=== PATIENT | male | born 1960 | race Caucasian/White ===

== ENCOUNTER 2022-04-13 10:50 | Inpatient (IN) | payer OTHER, SELFPAY ==
--- NOTE | ~2022-04-13 | XR_ITS ---
EXAMINATION: XR CHEST CLINICAL INFORMATION: Cough and wheezing COMPARISON: None TECHNIQUE: PA view of the chest was obtained. FINDINGS: There is a region of parenchymal disease as well as what appears be loculated effusion right lung base. No pneumothorax identified. Left hemithorax appears unremarkable. Heart normal size. No evidence of pulmonary edema. XR/XR chest 1V IMPRESSION: Right base disease with partially loculated effusion.
--- NOTE | ~2022-04-13 | XR_ITS ---
EXAMINATION: XR CHEST CLINICAL INFORMATION: Post right thoracentesis COMPARISON: Previous chest x-ray April 2022 TECHNIQUE: Frontal view of the chest was obtained. FINDINGS: The cardiac silhouette is enlarged but stable. There is interval decrease in the now small right pleural effusion post right thoracentesis. No pneumothorax. No left pleural effusion. Atelectasis at the right lung base. Lungs are otherwise clear. No acute bone abnormality. XR/XR chest 1V IMPRESSION: No pneumothorax post right thoracentesis. Small remaining right pleural effusion.
--- NOTE | ~2022-04-13 | CT_ITS ---
EXAMINATION: CT ANGIOGRAM OF THE CHEST WITH AND WITHOUT CONTRAST (CT PULMONARY ANGIOGRAM FOR PE) CLINICAL INFORMATION: Reason for Exam cough/sob/high BNP ? Loculated effusion; hx of cancer COMPARISON: None TECHNIQUE: Prior to contrast administration, noncontrast localization images were obtained. Subsequently, multidetector volumetric imaging was performed from the thoracic inlet to below the diaphragms following the administration of 85 mL Omnipaque 350 intravenous contrast. No contrast reaction reported Sagittal, coronal, and MIP oblique sagittal reformatted images were obtained on the CT workstation, uploaded to PACS, and reviewed. This CT examination was performed using dose optimization techniques as appropriate, variously including the following: *Automated exposure control *Adjustment of mA and/or kV according to patient size (this includes techniques or standardized protocols for targeted exams where dose is matched to indication/reason for exam; i.e. extremities or head) *Use of iterative reconstruction technique Total exam dose-length product 1038 mGy-cm FINDINGS: QUALITY OF STUDY/CONTRAST BOLUS: Satisfactory. PULMONARY ARTERIES: No central or segmental pulmonary emboli. THORACIC AORTA: The thoracic aorta is dilated measuring approximately 4.3 x 4.3 cm consistent with aortic ectasia/early aneurysmal dilatation. LUNG: No focal consolidation, nodules or masses. PLEURA: There is large pleural effusion on the right MEDIASTINUM: Normal heart size. No pericardial effusion. No hilar or mediastinal lymphadenopathy. No evidence of septal bowing or right heart strain. CHEST WALL/AXILLA: No axillary or internal mammary lymphadenopathy. OSSEOUS STRUCTURES: There is DISH in thoracic spine UPPER ABDOMEN: Unremarkable. No reflux of contrast into the hepatic veins to suggest elevated right heart pressures. CT/CT angio chest PE protocol IMPRESSION: 1. No evidence of pulmonary embolism. 2. Large pleural effusion on the right. 3. Early aneurysmal dilatation of thoracic aorta VTE: negative
--- NOTE | ~2022-04-13 | CT_ITS ---
EXAMINATION: CT ABDOMEN AND PELVIS WITH CONTRAST CLINICAL INFORMATION: Nausea and vomiting COMPARISON: None TECHNIQUE: Multidetector volumetric images were obtained from the superior aspect of the liver through the pubic symphysis following administration 85 mL of Omnipaque 350 intravenous contrast. Sagittal and coronal reformatted images were obtained on the technologist's workstation. Oral contrast: No This CT examination was performed using dose optimization techniques as appropriate, variously including the following: *Automated exposure control *Adjustment of mA and/or kV according to patient size (this includes techniques or standardized protocols for targeted exams where dose is matched to indication/reason for exam; i.e. extremities or head) *Use of iterative reconstruction technique DLP: 1038 mGy-cm FINDINGS: LUNG BASES: There is large right-sided pleural effusion LIVER, GALLBLADDER, AND BILIARY TREE: The liver is normal in size, shape, and attenuation. No focal hepatic lesion or biliary ductal dilatation is present. The gallbladder is unremarkable with no evidence of radiopaque gallstones, gallbladder wall thickening, or obvious pericholecystic inflammatory changes. PANCREAS: Unremarkable. SPLEEN: Unremarkable. ADRENAL GLANDS: Unremarkable. KIDNEYS AND URETERS: The kidneys are normal in size, shape, and attenuation. No hydronephrosis, hydroureter, or calculi seen. No perinephric stranding. BLADDER: Unremarkable. GASTROINTESTINAL TRACT: There is colostomy on the left. Appendix is surgically absent. ABDOMINAL WALL: There is a colostomy on the left. LYMPH NODES: Normal. VASCULAR: Unremarkable. PELVIC VISCERA: Unremarkable. OSSEOUS STRUCTURES: Unremarkable. CT/CT abdomen pelvis w IV con IMPRESSION: Large right-sided pleural effusion. Colostomy Status post appendectomy and sigmoidectomy Fleischner guidelines were followed.
--- NOTE | ~2022-04-13 | US_ITS ---
EXAMINATION: ULTRASOUND-GUIDED THORACENTESIS CLINICAL INFORMATION: Right pleural effusion COMPARISON: Previous chest x-ray and chest CTA 04/13/2022 TECHNIQUE: Procedure and risks and benefits including bleeding, infection and pneumothorax were discussed with the patient and informed consent was obtained. The right posterior lateral chest was prepped and draped in the usual sterile fashion. The skin and soft tissues were anesthetized with 1% lidocaine plain. Using ultrasound guidance and a 4 [place] one-step catheter, access to the right pleural effusion was obtained. 1.2 L of clear vanessa-colored fluid was removed. Diagnostic specimen was sent as requested by the ordering M.D. FINDINGS: There is a large right pleural effusion. US/US thoracentesis IMPRESSION: Ultrasound-guided right thoracentesis.
[2022-04-13 11:07] VITALS: BP 162/102; PULSE 116; RESP 18; TEMP 37.1; O2SAT 97; BMI 25.7
--- NOTE | 2022-04-13 11:13 | ECG_ITS ---
Test Reason : HYPERTENSION/ TACHYCARDIA Blood Pressure : / mmHG Vent. Rate : 079 BPM Atrial Rate : 079 BPM P-R Int : 168 ms QRS Dur : 104 ms QT Int : 414 ms P-R-T Axes : -02 -28 126 degrees QTc Int : 474 ms Sinus rhythm with occasional Premature ventricular complexes Minimal voltage criteria for LVH, may be normal variant ( Fabius product ) Nonspecific ST and T wave abnormality Left axis deviation Abnormal ECG No previous ECGs available Referred By: Generic ED Physician Electronically Signed By:MARIO HYLTON MD
[2022-04-13 11:53] LABS: COVID-19 Test Negative (Negative); IDNOW Serial# 9DB6401D; Influenza A Negative (Negative); Influenza B2 Negative (Negative)
[2022-04-13 11:56] LABS: MANUAL DIFF FLAG NO
[2022-04-13 11:58] LABS: Basophils Absolute Auto 0.1 X10*3/uL (0.0-0.2); Basophils Percent Auto 0.7 % (0-2); Eosinophils Absolute Auto 0.1 X10*3/uL (0.0-0.4); Eosinophils Percent Auto 0.9 % (0-4); Hematocrit 37.9 % (42.0-52.0); Hemoglobin 12.1 g/dl (14.0-18.0); Imm Gran Abs Auto 0.02 X10*3/uL (0.00-0.03); Imm Gran Pct Auto 0.3 % (0.0-0.4); Lymphocytes Absolute Auto 0.4 X10*3/uL (1.2-4.9); Lymphocytes Percent Auto 5.1 % (20-40); Mean Corpuscular HGB Conc 31.9 g/dl (31.0-36.0); Mean Corpuscular Hemoglobin 30.6 pg (27.0-33.0); Mean Corpuscular Volume 95.7 fL (80.0-98.0); Mean Platelet Volume 8.4 fL (9.4-12.4); Monocytes Absolute Auto 0.6 X10*3/uL (0.1-1.2); Monocytes Percent Auto 8.7 % (2-11); Neutrophils Absolute Auto 5.8 x10*3/uL (2.0-8.3); Neutrophils Percent Auto 84.3 % (45-73); Platelet Count 224 X10*3/uL (160-400); Red Blood Count 3.96 X10*6/uL (4.60-5.80); Red Cell Distribution Width 12.7 % (11.0-16.0); White Blood Count 6.9 X10*3/uL (4.8-10.8)
[2022-04-13 12:18] LABS: Anion Gap 17 (12-20); Blood Urea Nitrogen 12 mg/dL (9-16); Calcium 9.1 mg/dL (8.4-10.2); Carbon Dioxide 27 mmol/L (22-29); Chloride 102 mmol/L (96-108); Creatinine Clr Calc Pharmacy 73.8; Estimated Glomerular Filt Rate > 60; Glucose Random 117 mg/dL (60-115); Potassium 4.4 mmol/L (3.3-5.1); Sodium 142 mmol/L (135-145)
[2022-04-13 12:21] LABS: B Type Natriuretic Peptide 2517 pg/mL (<100)
[2022-04-13 12:22] LABS: Troponin-I High Sensitivity 35.1 ng/L (<3.5-35.0)
[2022-04-13] MEDS: Furosemide 20 MG/2 ML VIAL IVPUSH (13:08)
[2022-04-13 13:13] LABS: Lactic Acid 0.7 mmol/L (0.5-2.0)
[2022-04-13 13:15] LABS: Alanine Aminotransferase 10 U/L (0-40); Albumin Level 4.5 g/dL (3.5-5.0); Alkaline Phosphatase 72 U/L (39-117); Aspartate Amino Transferase 18 U/L (5-37); Bilirubin Direct 0.3 mg/dL (0.0-0.5); Bilirubin Total 0.9 mg/dL (0.0-1.0); Lipase 20 U/L (8-78); Magnesium 2.1 mg/dL (1.6-2.6); Total Protein 7.6 g/dL (6.5-8.0)
--- NOTE | 2022-04-13 13:18 | ED.SOB ---
HPI - SOB/Dyspnea General Chief Complaint: General Medical <HEBER Spicer Last Filed: 04/13/22 13:28> Stated Complaint: nausea vomiting wheezing <HEBER Spicer Last Filed: 04/13/22 13:28> Time Seen by Provider: 04/13/22 12:18 <HEBER Spicer Last Filed: 04/13/22 13:28> Source: patient and family <HEBER Spicer Last Filed: 04/13/22 13:28> Mode of arrival: ambulatory <HEBER Spicer Last Filed: 04/13/22 13:28> Limitations: no limitations <HEBER Spicer Last Filed: 04/13/22 13:28> History of Present Illness HPI Narrative: 61-year-old male with a past medical history of aortic stenosis requiring valve replacement, CHF, HTN, COPD, history of skin cancer, history of colorectal cancer status post resection with colostomy in place presenting to the ED with complaints of generalized fatigue, malaise, body aches, nausea, productive cough with vomiting for the past 3 days worse today. Reports that he had a negative COVID test at home. Reports he is fully vaccinated for COVID. He reports he is taking all his medications as prescribed. He is currently on Lasix 40 mg b.i.d. daily for his CHF. He was supposed to have an echocardiogram today for his aortic stenosis that he needs a valve replacement although he canceled due to he wanted to come here for further evaluation treatment. He denies any fevers, chills, dizziness, headaches, neck pain/stiffness, chest pain, abdominal pain, back pain, flank pain, dysuria, hematuria, abnormal penile discharge, black or bloody stools, lower extremity edema or calf tenderness, recent travel or sick contacts that he is aware of, others with similar symptoms, possible bad food exposure or any other symptoms complaints or concerns at this time. <HEBER Spicer Last Filed: 04/13/22 13:28> MD elicited complaint: shortness of breath, cough, pain with inspiration and chest pain <HEBER Spicer Last Filed: 04/13/22 13:28> Pertinent past history: COPD, congestive heart failure and other (hx of colo-rectal cancer ) <HEBER Spicer Last Filed: 04/13/22 13:28> Onset (ago): day(s) (3) <HEBER Spicer - Last Filed: 04/13/22 13:28> Timing: constant <HEBER Spicer - Last Filed: 04/13/22 13:28> Severity: moderate <HEBER Spicer - Last Filed: 04/13/22 13:28> Exacerbating factors: exertion, movement, coughing, inspiration and deep breaths <HEBER Spicer - Last Filed: 04/13/22 13:28> Relieving factors: nothing <HEBER Spicer - Last Filed: 04/13/22 13:28> Known history of: COPD and congestive heart failure <HEBER Spicer - Last Filed: 04/13/22 13:28> Associated symptoms: chest pain, pain with inspiration, cough, wheezing, sputum production and chest congestion <HEBER Spicer - Last Filed: 04/13/22 13:28> Treatment prior to arrival: none <HEBER Spicer - Last Filed: 04/13/22 13:28> Related Data Home oxygen amount: none <HEBER Spicer - Last Filed: 04/13/22 13:28> Allergies/Adverse Reactions: Allergies Allergy/AdvReac Type Severity Reaction Status Date / Time No Known Allergies Allergy Verified 04/13/22 11:07 <HEBER Spicer - Last Filed: 04/13/22 13:28> Review of Systems Review of Systems: Constitutional : No Weight loss, No Fever, No Chills, No Night Sweats, + Fatigue, + Malaise ENT/Mouth : No Hearing loss, No Ear Pain, No Nasal Congestion, No Sinus Pain, No Hoarseness, No sore throat, No Rhinorrhea, No Swallowing Difficulty Eyes: No Eye Pain, No Swelling, No Redness, No Foreign Body, No Discharge, No Vision Changes Cardiovascular : + Chest Pain, + SOB, + Dyspnea on Exertion, No Orthopnea, + Edema, No Palpitations Respiratory : + Cough, + Sputum, + Wheezing, No Smoke Exposure, No Dyspnea Gastrointestinal : + Nausea, + Vomiting, No Diarrhea, No Constipation, No abdominal Pain, No Hematochezia, No Melena Genitourinary : no irregular bleeding, No Dysuria, No Urinary Frequency, No Hematuria, No Urinary Incontinence, No Urgency, No Flank Pain, No Urinary Flow Changes, No Hesitancy Musculoskeletal : No joint pain, No Myalgias, No Joint Swelling Skin : No Skin Lesions, No rash Neuro : No Weakness, No Numbness, No Paresthesias, No Loss of Consciousness, No Dizziness, No Headache Psych : No Anxiety/Panic, No Depression, No SI/HI/AH/VH, No Social Issues, Heme/Lymph: No Bruising, No Bleeding,No Lymphadenopathy Endocrine : No Polyuria, No Polydipsia, No Temperature Intolerance <HEBER Spicer - Last Filed: 04/13/22 13:28> Yes all other systems are reviewed and are negative <HEBER Spicer - Last Filed: 04/13/22 13:28> [facility] Past Medical History Attestation statement: The following information was validated with the patient. <HEBER Spicer - Last Filed: 04/13/22 13:28> Source: old records reviewed, obtained from family and nursing notes reviewed <HEBER Spicer - Last Filed: 04/13/22 13:28> Medical History: Medical History (Updated 04/13/22 @ 18:54 by HEBER Infante) Aortic stenosis Colostomy in place COPD (chronic obstructive pulmonary disease) History of colorectal cancer History of skin cancer HTN (hypertension) Retinopathy <HEBER Spicer - Last Filed: 04/13/22 13:28> Surgical History: Surgical History (Updated 04/13/22 @ 18:50 by HEBER Infante) S/P appendectomy S/P colostomy S/P laparoscopic-assisted sigmoidectomy <HEBER Spicer - Last Filed: 04/13/22 13:28> Family History Family History: Family History Father CHF (congestive heart failure) Mother Dementia Maternal Grandmother Dementia Maternal Grandfather Lung cancer <HEBER Spicer - Last Filed: 04/13/22 13:28> Social History Social History: Social History Alcohol intake: former Smoked in Last 30 Days: No Advance Directives: Yes Advance Directives Information Provided: Yes Advance Directives on File: No <HEBER Spicer - Last Filed: 04/13/22 13:28> Physical Exam Vital Signs: Vital Signs: Last Vital Signs Temp 98.0 F 04/13/22 18:51 Pulse 78 04/13/22 19:17 Resp 18 04/13/22 19:17 BP 128/86 04/13/22 18:51 Pulse Ox 95 04/13/22 18:51 O2 Del Method 04/13/22 18:51 BMI result Body Mass Index 25.7 vital signs have been reviewed as normal and appeared to be correct. Blood pressure 162/102 Heart rate 116. Respiration rate normal. Temperature normal. Oxygen saturation normal. <HEBER Spicer - Last Filed: 04/13/22 13:28> Vital Signs: Last Vital Signs Temp 98.0 F 04/13/22 18:51 Pulse 78 04/13/22 19:17 Resp 18 04/13/22 19:17 BP 128/86 04/13/22 18:51 Pulse Ox 95 04/13/22 18:51 O2 Del Method 04/13/22 18:51 BMI result Body Mass Index 25.7 <HEBER Trimble - Last Filed: 04/13/22 19:47> Appearance: Alert. Oriented X3. No acute distress. Head: Normal external exam. Normocephalic. Atraumatic. Eyes: PERRLA. EOMI. Conjunctiva and sclera normal. Eyelids normal. ENT: EAC normal. TM's Normal. Pharynx normal. Uvula midline. Moist mucous membranes. No lesions/ulcerations or masses noted on the tongue. Normal voice. No trismus noted. No drooling noted. No muffled voice noted. Neck: Normal inspection. Neck supple. FROM. No adenopathy. Thyroid Normal. No tracheal deviation noted. No crepitus is noted. No meningeal signs. No neck mass noted. No signs of trauma noted. CVS: Normal heart rate and rhythm. Heart sound normal. Pulses normal throughout. No murmurs/rales/gallops. Respiratory: No respiratory distress. Painless inspiration. Although breath sounds noted to be decreased and patient noted to have some wheezing. Patient also noted to have some rales. No rhonchi noted. Chest nontender. No crepitus is noted. No accessory muscle usage noted. No signs of trauma. Abdomen: Soft and nontender. Nondistended. No guarding. No rigidity. Bowel sounds normal in all 4 quadrants. No distention noted. No organomegaly noted. No visible injury noted. No rebound tenderness. Negative Rovsing sign. Negative obturator's sign. Negative psoas sign. Negative Mancilla sign. Back: No CVA tenderness. Full range of motion noted. Nontender. No signs of trauma. Patient neuro intact bilaterally and distally on all 4 extremities. Patient's reflexes intact bilaterally and distally on all 4 extremities. No rashes/lesion/induration/fluctuance or signs of infection noted. Skin: Skin warm and dry. Normal skin color. Normal skin turgor. No rashes/lesions/lacerations noted. Extremities: +2 lower extremity edema. No calf tenderness is noted. Extremities exhibit normal range of motion and nontender. Neuro: Oriented X 3. No motor deficit. No sensory deficit. Reflexes normal. Normal steady gait. No focal neuro deficits noted. CN's II-XII intact bilaterally? Vascular: + radial pulses/+ 2 distal pedal pulses/+2 dorsalis pedis b/l. Normal cap refill. No cyanosis noted to upper extremity nails and lower extremity toes nails. <HEBER Spicer - Last Filed: 04/13/22 13:28> Course Course Course Narrative: 12:50pm - 61yoM c PMHx of aortic stenosis requiring valve replacement, CHF, HTN, COPD, history of skin cancer, history of colorectal cancer status post resection with colostomy in place presenting to the ED with complaints of generalized fatigue, malaise, body aches, nausea, productive cough with vomiting for the past 3 days worse today. Reports that he had a negative COVID test at home. Reports he is fully vaccinated for COVID. He reports he is taking all his medications as prescribed. He is currently on Lasix 40 mg b.i.d. daily for his CHF. He was supposed to have an echocardiogram today for his aortic stenosis that he needs a valve replacement although he canceled due to he wanted to come here for further evaluation treatment. Patient had labs a heels in the waiting room patient noted to have anemia with an H&H of 12.1/37.9. Random glucose 117. Troponin 35.1. BNP 2517. Otherwise all other labs are within normal limits. Patient negative for COVID/RSV/flu. Chest x-ray revealed right base disease with partially loculated effusion. Plan: Therefore will add blood cultures, lactic acid, repeat the patient's troponin. Obtain a CT of chest for PE, CT scan abdomen pelvis with IV contrast. Provide 20 mg of IV Lasix and re-evaluate. <HEBER Spicer - Last Filed: 04/13/22 13:28> Reevaluation(s) Reevaluation #1: Patient's troponin not meeting double delta criteria. Patient remains hemodynamically stable saturating well on room air. CTA of the chest with no PE, large pleural effusion on the right is noted. 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 CT of the abdomen pelvis with no acute findings. Patient to be admitted to the hospital for further intervention and treatment. For CHF, pleural effusion. <HEBER Trimble - Last Filed: 04/13/22 19:47> Time: 19:47 <HEBER Trimble - Last Filed: 04/13/22 19:47> Medications Administered Generic Name Dose Route Start Last Admin Trade Name Freq PRN Reason Stop Dose Admin Albuterol/Ipratropium 3 ml 04/13/22 20:00 04/13/22 19:16 Albuterol/Iprat 2.5/0.5mg 3 Ml Ampul.Neb INHALE 3 ml RQ4H WHILE AWAKE GERARDO Administration Discontinued Medications Generic Name Dose Route Start Last Admin Trade Name Freq PRN Reason Stop Dose Admin Albuterol Sulfate 2.5 mg 04/13/22 13:32 04/13/22 13:36 Albuterol Sulfate (0.083%) 2.5 Mg/3 Ml Vial.Neb INHALE 04/13/22 13:33 2.5 mg ONCE ONE Administration Furosemide 20 mg 04/13/22 12:48 04/13/22 13:08 Furosemide 20 Mg/2 Ml Vial IVPUSH 04/13/22 12:49 20 mg ONCE ONE Administration Protocol Furosemide 40 mg 04/13/22 18:00 04/13/22 18:46 Furosemide 40 Mg/4 Ml Vial IVPUSH 40 mg BID@0900,1800 GERARDO Administration Protocol Iohexol 100 ml 04/13/22 14:37 04/13/22 14:38 Iohexol 350 Mg/Ml 100 Ml Infus..Btl IV 04/13/22 14:38 85 ml ONCE ONE Administration <HEBER Spicer - Last Filed: 04/13/22 13:28> Medications Administered Generic Name Dose Route Start Last Admin Trade Name Freq PRN Reason Stop Dose Admin Albuterol/Ipratropium 3 ml 04/13/22 20:00 04/13/22 19:16 Albuterol/Iprat 2.5/0.5mg 3 Ml Ampul.Neb INHALE 3 ml RQ4H WHILE AWAKE GERARDO Administration Discontinued Medications Generic Name Dose Route Start Last Admin Trade Name Freq PRN Reason Stop Dose Admin Albuterol Sulfate 2.5 mg 04/13/22 13:32 04/13/22 13:36 Albuterol Sulfate (0.083%) 2.5 Mg/3 Ml Vial.Neb INHALE 04/13/22 13:33 2.5 mg ONCE ONE Administration Furosemide 20 mg 04/13/22 12:48 04/13/22 13:08 Furosemide 20 Mg/2 Ml Vial IVPUSH 04/13/22 12:49 20 mg ONCE ONE Administration Protocol Furosemide 40 mg 04/13/22 18:00 04/13/22 18:46 Furosemide 40 Mg/4 Ml Vial IVPUSH 40 mg BID@0900,1800 [facility] Administration Protocol Iohexol 100 ml 04/13/22 14:37 04/13/22 14:38 Iohexol 350 Mg/Ml 100 Ml Infus..Btl IV 04/13/22 14:38 85 ml ONCE ONE Administration <HEBER Trimble - Last Filed: 04/13/22 19:47> MDM - SOB/Dyspnea Medical Records Attestation: I reviewed the patient's medical records. <HEBER Spicer - Last Filed: 04/13/22 13:28> Lab Data Attestation: I reviewed the patient's lab results. <HEBER Spicer - Last Filed: 04/13/22 13:28> Result diagrams: : 04/13/22 11:51 04/13/22 11:51 <HEBER Spicer - Last Filed: 04/13/22 13:28> Labs: Lab Results 04/13/22 04/13/22 04/13/22 Range/Units 11:20 11:20 11:51 WBC 6.9 (4.8-10.8) X10*3/uL RBC 3.96 L (4.60-5.80) X10*6/uL Hgb 12.1 L (14.0-18.0) g/dl Hct 37.9 L (42.0-52.0) % MCV 95.7 (80.0-98.0) fL MCH 30.6 (27.0-33.0) pg MCHC 31.9 (31.0-36.0) g/dl RDW 12.7 (11.0-16.0) % Plt Count 224 (160-400) X10*3/uL MPV 8.4 L (9.4-12.4) fL Immature Gran % (Auto) 0.3 (0.0-0.4) % Neut % (Auto) 84.3 H (45-73) % Lymph % (Auto) 5.1 L (20-40) % [place] % (Auto) 8.7 (2-11) % Eos % (Auto) 0.9 (0-4) % Baso % (Auto) 0.7 (0-2) % Lymph # (Auto) 0.4 L (1.2-4.9) X10*3/uL [place] # (Auto) 0.6 (0.1-1.2) X10*3/uL Eos # (Auto) 0.1 (0.0-0.4) X10*3/uL Baso # (Auto) 0.1 (0.0-0.2) X10*3/uL Abs Immat Gran (auto) 0.02 (0.00-0.03) X10*3/uL Absolute Neuts (auto) 5.8 (2.0-8.3) x10*3/uL Absolute Nucleated RBC 0.000 (0.0-0.012) X10*3/uL Nucleated RBC % (auto) 0.0 (0.0-0.2) /100WBC Sodium (135-145) mmol/L Potassium (3.3-5.1) mmol/L Chloride (96-108) mmol/L Carbon Dioxide (22-29) mmol/L Anion Gap (12-20) BUN (9-16) mg/dL Creatinine (0.5-1.4) mg/dL Estim Creat Clear Calc Estimated GFR Random Glucose (60-115) mg/dL Lactic Acid (0.5-2.0) mmol/L Calcium (8.4-10.2) mg/dL Magnesium (1.6-2.6) mg/dL Total Bilirubin (0.0-1.0) mg/dL Direct Bilirubin (0.0-0.5) mg/dL AST (5-37) U/L ALT (0-40) U/L Alkaline Phosphatase (39-117) U/L Troponin I High Sens (<3.5-35.0) ng/L B-Natriuretic Peptide (<100) pg/mL Total Protein (6.5-8.0) g/dL Albumin (3.5-5.0) g/dL Lipase (8-78) U/L COVID-19 ([place]) Negative (Negative) COVID-19 Clin Com See Note Influenza Type A ([facility]AN) Negative (Negative) Influenza Type B ([facility]AN) Negative (Negative) Influenza A & B Note See Note 04/13/22 04/13/22 04/13/22 Range/Units 11:51 11:51 11:51 WBC (4.8-10.8) X10*3/uL RBC (4.60-5.80) X10*6/uL Hgb (14.0-18.0) g/dl Hct (42.0-52.0) % MCV (80.0-98.0) fL MCH (27.0-33.0) pg MCHC (31.0-36.0) g/dl RDW (11.0-16.0) % Plt Count (160-400) X10*3/uL MPV (9.4-12.4) fL Immature Gran % (Auto) (0.0-0.4) % Neut % (Auto) (45-73) % Lymph % (Auto) (20-40) % [place] % (Auto) (2-11) % Eos % (Auto) (0-4) % Baso % (Auto) (0-2) % Lymph # (Auto) (1.2-4.9) X10*3/uL [place] # (Auto) (0.1-1.2) X10*3/uL Eos # (Auto) (0.0-0.4) X10*3/uL Baso # (Auto) (0.0-0.2) X10*3/uL Abs Immat Gran (auto) (0.00-0.03) X10*3/uL Absolute Neuts (auto) (2.0-8.3) x10*3/uL Absolute Nucleated RBC (0.0-0.012) X10*3/uL Nucleated RBC % (auto) (0.0-0.2) /100WBC Sodium 142 (135-145) mmol/L Potassium 4.4 (3.3-5.1) mmol/L Chloride 102 (96-108) mmol/L Carbon Dioxide 27 (22-29) mmol/L Anion Gap 17 (12-20) BUN 12 (9-16) mg/dL Creatinine 1.09 (0.5-1.4) mg/dL Estim Creat Clear Calc 73.8 Estimated GFR > 60 Random Glucose 117 H (60-115) mg/dL Lactic Acid (0.5-2.0) mmol/L Calcium 9.1 (8.4-10.2) mg/dL Magnesium 2.1 (1.6-2.6) mg/dL Total Bilirubin 0.9 (0.0-1.0) mg/dL Direct Bilirubin 0.3 (0.0-0.5) mg/dL AST 18 (5-37) U/L ALT 10 (0-40) U/L Alkaline Phosphatase 72 (39-117) U/L Troponin I High Sens 35.1 H (<3.5-35.0) ng/L B-Natriuretic Peptide 2517 H (<100) pg/mL Total Protein 7.6 (6.5-8.0) g/dL Albumin 4.5 (3.5-5.0) g/dL Lipase 20 (8-78) U/L COVID-19 ([place]) (Negative) COVID-19 Clin Com Influenza Type A ([facility]) (Negative) Influenza Type B ([facility]) (Negative) Influenza A & B Note 04/13/22 04/13/22 04/13/22 Range/Units 12:57 12:57 15:20 WBC (4.8-10.8) X10*3/uL RBC (4.60-5.80) X10*6/uL Hgb (14.0-18.0) g/dl Hct (42.0-52.0) % MCV (80.0-98.0) fL MCH (27.0-33.0) pg MCHC (31.0-36.0) g/dl RDW (11.0-16.0) % Plt Count (160-400) X10*3/uL MPV (9.4-12.4) fL Immature Gran % (Auto) (0.0-0.4) % Neut % (Auto) (45-73) % Lymph % (Auto) (20-40) % [place] % (Auto) (2-11) % Eos % (Auto) (0-4) % Baso % (Auto) (0-2) % Lymph # (Auto) (1.2-4.9) X10*3/uL [place] # (Auto) (0.1-1.2) X10*3/uL Eos # (Auto) (0.0-0.4) X10*3/uL Baso # (Auto) (0.0-0.2) X10*3/uL Abs Immat Gran (auto) (0.00-0.03) X10*3/uL Absolute Neuts (auto) (2.0-8.3) x10*3/uL Absolute Nucleated RBC (0.0-0.012) X10*3/uL Nucleated RBC % (auto) (0.0-0.2) /100WBC Sodium (135-145) mmol/L Potassium (3.3-5.1) mmol/L Chloride (96-108) mmol/L Carbon Dioxide (22-29) mmol/L Anion Gap (12-20) BUN (9-16) mg/dL Creatinine (0.5-1.4) mg/dL Estim Creat Clear Calc Estimated GFR Random Glucose (60-115) mg/dL Lactic Acid 0.7 (0.5-2.0) mmol/L Calcium (8.4-10.2) mg/dL Magnesium (1.6-2.6) mg/dL Total Bilirubin (0.0-1.0) mg/dL Direct Bilirubin (0.0-0.5) mg/dL AST (5-37) U/L ALT (0-40) U/L Alkaline Phosphatase (39-117) U/L Troponin I High Sens 40.2 H 41.5 H (<3.5-35.0) ng/L B-Natriuretic Peptide (<100) pg/mL Total Protein (6.5-8.0) g/dL Albumin (3.5-5.0) g/dL Lipase (8-78) U/L COVID-19 ([place]) (Negative) COVID-19 Clin Com Influenza Type A ([facility]) (Negative) Influenza Type B ([facility]) (Negative) Influenza A & B Note <HEBER Spicer - Last Filed: 04/13/22 13:28> Lab Results 04/13/22 04/13/22 04/13/22 Range/Units 11:20 11:20 11:51 WBC 6.9 (4.8-10.8) X10*3/uL RBC 3.96 L (4.60-5.80) X10*6/uL Hgb 12.1 L (14.0-18.0) g/dl Hct 37.9 L (42.0-52.0) % MCV 95.7 (80.0-98.0) fL MCH 30.6 (27.0-33.0) pg MCHC 31.9 (31.0-36.0) g/dl RDW 12.7 (11.0-16.0) % Plt Count 224 (160-400) X10*3/uL MPV 8.4 L (9.4-12.4) fL Immature Gran % (Auto) 0.3 (0.0-0.4) % Neut % (Auto) 84.3 H (45-73) % Lymph % (Auto) 5.1 L (20-40) % [place] % (Auto) 8.7 (2-11) % Eos % (Auto) 0.9 (0-4) % Baso % (Auto) 0.7 (0-2) % Lymph # (Auto) 0.4 L (1.2-4.9) X10*3/uL [place] # (Auto) 0.6 (0.1-1.2) X10*3/uL Eos # (Auto) 0.1 (0.0-0.4) X10*3/uL Baso # (Auto) 0.1 (0.0-0.2) X10*3/uL Abs Immat Gran (auto) 0.02 (0.00-0.03) X10*3/uL Absolute Neuts (auto) 5.8 (2.0-8.3) x10*3/uL Absolute Nucleated RBC 0.000 (0.0-0.012) X10*3/uL Nucleated RBC % (auto) 0.0 (0.0-0.2) /100WBC Sodium (135-145) mmol/L Potassium (3.3-5.1) mmol/L Chloride (96-108) mmol/L Carbon Dioxide (22-29) mmol/L Anion Gap (12-20) BUN (9-16) mg/dL Creatinine (0.5-1.4) mg/dL Estim Creat Clear Calc Estimated GFR Random Glucose (60-115) mg/dL Lactic Acid (0.5-2.0) mmol/L Calcium (8.4-10.2) mg/dL Magnesium (1.6-2.6) mg/dL Total Bilirubin (0.0-1.0) mg/dL Direct Bilirubin (0.0-0.5) mg/dL AST (5-37) U/L ALT (0-40) U/L Alkaline Phosphatase (39-117) U/L Troponin I High Sens (<3.5-35.0) ng/L B-Natriuretic Peptide (<100) pg/mL Total Protein (6.5-8.0) g/dL Albumin (3.5-5.0) g/dL Lipase (8-78) U/L COVID-19 ([place]) Negative (Negative) COVID-19 Clin Com See Note Influenza Type A ([place]) Negative (Negative) Influenza Type B ([place]) Negative (Negative) Influenza A & B Note See Note 04/13/22 04/13/22 04/13/22 Range/Units 11:51 11:51 11:51 WBC (4.8-10.8) X10*3/uL RBC (4.60-5.80) X10*6/uL Hgb (14.0-18.0) g/dl Hct (42.0-52.0) % MCV (80.0-98.0) fL MCH (27.0-33.0) pg MCHC (31.0-36.0) g/dl RDW (11.0-16.0) % Plt Count (160-400) X10*3/uL MPV (9.4-12.4) fL Immature Gran % (Auto) (0.0-0.4) % Neut % (Auto) (45-73) % Lymph % (Auto) (20-40) % [place] % (Auto) (2-11) % Eos % (Auto) (0-4) % Baso % (Auto) (0-2) % Lymph # (Auto) (1.2-4.9) X10*3/uL [place] # (Auto) (0.1-1.2) X10*3/uL Eos # (Auto) (0.0-0.4) X10*3/uL Baso # (Auto) (0.0-0.2) X10*3/uL Abs Immat Gran (auto) (0.00-0.03) X10*3/uL Absolute Neuts (auto) (2.0-8.3) x10*3/uL Absolute Nucleated RBC (0.0-0.012) X10*3/uL Nucleated RBC % (auto) (0.0-0.2) /100WBC Sodium 142 (135-145) mmol/L Potassium 4.4 (3.3-5.1) mmol/L Chloride 102 (96-108) mmol/L Carbon Dioxide 27 (22-29) mmol/L Anion Gap 17 (12-20) BUN 12 (9-16) mg/dL Creatinine 1.09 (0.5-1.4) mg/dL Estim Creat Clear Calc 73.8 Estimated GFR > 60 Random Glucose 117 H (60-115) mg/dL Lactic Acid (0.5-2.0) mmol/L Calcium 9.1 (8.4-10.2) mg/dL Magnesium 2.1 (1.6-2.6) mg/dL Total Bilirubin 0.9 (0.0-1.0) mg/dL Direct Bilirubin 0.3 (0.0-0.5) mg/dL AST 18 (5-37) U/L ALT 10 (0-40) U/L Alkaline Phosphatase 72 (39-117) U/L Troponin I High Sens 35.1 H (<3.5-35.0) ng/L B-Natriuretic Peptide 2517 H (<100) pg/mL Total Protein 7.6 (6.5-8.0) g/dL Albumin 4.5 (3.5-5.0) g/dL Lipase 20 (8-78) U/L COVID-19 ([place]) (Negative) COVID-19 Clin Com Influenza Type A ([facility]) (Negative) Influenza Type B ([facility]) (Negative) Influenza A & B Note 04/13/22 04/13/22 04/13/22 Range/Units 12:57 12:57 15:20 WBC (4.8-10.8) X10*3/uL RBC (4.60-5.80) X10*6/uL Hgb (14.0-18.0) g/dl Hct (42.0-52.0) % MCV (80.0-98.0) fL MCH (27.0-33.0) pg MCHC (31.0-36.0) g/dl RDW (11.0-16.0) % Plt Count (160-400) X10*3/uL MPV (9.4-12.4) fL Immature Gran % (Auto) (0.0-0.4) % Neut % (Auto) (45-73) % Lymph % (Auto) (20-40) % [place] % (Auto) (2-11) % Eos % (Auto) (0-4) % Baso % (Auto) (0-2) % Lymph # (Auto) (1.2-4.9) X10*3/uL [place] # (Auto) (0.1-1.2) X10*3/uL Eos # (Auto) (0.0-0.4) X10*3/uL Baso # (Auto) (0.0-0.2) X10*3/uL Abs Immat Gran (auto) (0.00-0.03) X10*3/uL Absolute Neuts (auto) (2.0-8.3) x10*3/uL Absolute Nucleated RBC (0.0-0.012) X10*3/uL Nucleated RBC % (auto) (0.0-0.2) /100WBC Sodium (135-145) mmol/L Potassium (3.3-5.1) mmol/L Chloride (96-108) mmol/L Carbon Dioxide (22-29) mmol/L Anion Gap (12-20) BUN (9-16) mg/dL Creatinine (0.5-1.4) mg/dL Estim Creat Clear Calc Estimated GFR Random Glucose (60-115) mg/dL Lactic Acid 0.7 (0.5-2.0) mmol/L Calcium (8.4-10.2) mg/dL Magnesium (1.6-2.6) mg/dL Total Bilirubin (0.0-1.0) mg/dL Direct Bilirubin (0.0-0.5) mg/dL AST (5-37) U/L ALT (0-40) U/L Alkaline Phosphatase (39-117) U/L Troponin I High Sens 40.2 H 41.5 H (<3.5-35.0) ng/L B-Natriuretic Peptide (<100) pg/mL Total Protein (6.5-8.0) g/dL Albumin (3.5-5.0) g/dL Lipase (8-78) U/L COVID-19 ([place]) (Negative) COVID-19 Clin Com Influenza Type A ([facility]AN) (Negative) Influenza Type B (JEAN) (Negative) Influenza A & B Note <HEBER Trimble - Last Filed: 04/13/22 19:47> Imaging Data Chest x-ray: Attestation: I personally reviewed and interpreted this imaging study as follows: <HEBER Spicer - Last Filed: 04/13/22 13:28> Radiologist's impression: FINDINGS: There is a region of parenchymal disease as well as what appears be loculated effusion right lung base. No pneumothorax identified. Left hemithorax appears unremarkable. Heart normal size. No evidence of pulmonary edema. XR/XR chest 1V IMPRESSION: Right base disease with partially loculated effusion. <HEBER Spicer - Last Filed: 04/13/22 13:28> ECG Data Attestation: I personally reviewed and interpreted this ECG as follows: <HEBER Spicer - Last Filed: 04/13/22 13:28> ECG interpretation date: 04/13/22 <HEBER Spicer - Last Filed: 04/13/22 13:28> ECG interpretation time: 11:14 <HEBER Spicer - Last Filed: 04/13/22 13:28> Interpretation: Sinus rhythm with occasional PVC with LVH with nonspecific ST and T-wave abnormalities no acute ischemic change are noted. No prior EKGs to compare to at this time. <HEBER Spicer - Last Filed: 04/13/22 13:28> Critical Care Time Critical Care Time Critical Care Time: Yes <HEBER Spicer - Last Filed: 04/13/22 13:28> Total Critical Care Time: 60 <HEBER Spicer - Last Filed: 04/13/22 13:28> Attestation: I personally attest to this time spent taking care of the patient <HEBER Spicer - Last Filed: 04/13/22 13:28> Discharge Plan Discharge Clinical Impression: Acute exacerbation of CHF (congestive heart failure), Pleural effusion <HEBER Spicer - Last Filed: 04/13/22 13:28> Patient Disposition: Admitted As Inpatient <HEBER Spicer - Last Filed: 04/13/22 13:28>
[2022-04-13 13:25] LABS: Troponin-I High Sensitivity 40.2 ng/L (<3.5-35.0)
[2022-04-13 13:36] VITALS: PULSE 87; RESP 18; O2SAT 94
[2022-04-13] MEDS: Albuterol Sulfate (0.083%) 2.5 MG/3 ML VIAL.NEB INHALE (13:36)
--- OUTSIDE RECORDS SUMMARY | 2022-04-13 13:37 | XMS_ITS | Continuity of Care Document ---
:1960 Author Organization [facility] Address [address] [place] [address]- Care Team Providers Name Role Phone Stephen Mota MD Primary Care Physician Encounter [facility] [place] Date(s): 06/26/21 - 07/26/21 [facility] [address] [place] [id number]- Allergies, Adverse Reactions, Alerts No Known Allergies Immunizations Given and Recorded Vaccine Date Status Refusal Reason SARS-CoV-2 (COVID-19) mRNA BNT-162b2 vac 08/30/20 Given SARS-CoV-2 (COVID-19) mRNA BNT-162b2 vac 08/09/20 Given tetanus/diphtheria/pertussis, acel(Tdap) 10/21/19 Given Medications albuterol 90 mcg/inh inhalation powder 1 puffs, Inhalation, Every 6 hours, PRN as needed, # 1 each, 0 Refills, Maintenance, 08/17/19 12:38:00 EDT, Powder Start Date: 08/17/19 Status: OrderedamLODIPine 10 mg oral tablet 10 mg, 1, tablet, By Mouth, Daily, Refills 0, Maintenance, 08/17/19 12:40:00 EDT Start Date: 08/17/19 Status: Orderedcarvedilol 3.125 mg oral tablet 3.125 mg, 1, tablet, By Mouth, 2 times a day, Refills 0, Maintenance, 09/13/19 16:04:00 EDT Start Date: 09/13/19 Status: Orderedduloxetine 60 mg oral enteric coated capsule 1 capsule = 60 mg, By Mouth, Daily, [facility], # 30 capsule, 0 Refills, Maintenance, 08/15/20 17:45:00 EDT, EC Capsule, Partial fill upon patient request if the prescription is for a schedule II opioid drug. Start Date: 08/15/20 Status: Orderedfamotidine 20 mg oral tablet 20 mg, 1, tablet, By Mouth, 2 times a day, # 180 tablet, Refills 0, Tot. Refills 0, Maintenance, 05/07/21 13:10:00 EST, Route to Pharmacy Electronically, [facility]/pharmacy #[id number], Partial fill upon patient request if the prescription is for a schedule II op... Start Date: 05/07/21 Status: OrderedFlonase 50 mcg/inh nasal spray Daily, 0 Refills, Maintenance, 08/17/19 12:54:00 EDT Start Date: 08/17/19 Status: OrderedLasix 20 mg oral tablet 20 mg, 1, tablet, By Mouth, Daily, take 1-3 tabs daily depending on morning weight, Refills 0, Maintenance, 09/13/19 15:31:00 EDT Start Date: 09/13/19 Status: Orderedlevothyroxine 175 mcg (0.175 mg) oral tablet 1 tablet = 0.175 mg, By Mouth, Daily, # 30 application, 0 Refills, Maintenance, Tablet Start Date: 02/20/10 Status: Orderedlisinopril 20 mg oral tablet 20 mg, 1, tablet, By Mouth, Daily, Refills 0, Maintenance, 08/17/19 12:40:00 EDT Start Date: 08/17/19 Status: OrderedLomotil 0.025 mg-2.5 mg oral tablet 2, tablet, By Mouth, 4 times a day, PRN, # 150 tablet, Refills 2, Tot. Refills 2, Maintenance, for loose stool, 12/29/20 9:26:00 EDT, Route to Pharmacy Electronically, [facility]/pharmacy #1234 Tablet, new script for dose and instructions., 180, cm, 10/16/20... Start Date: 12/29/20 Status: OrderedMetamucil 3.4 gm/5.2 gm oral powder for reconstitution = 1.7 Gm, By Mouth, 3 times a day, PRN as needed for constipation, # 1,042 Gm, 1 Refills, Maintenance, 08/07/20 10:18:00 EST, REC Powder, [facility]/pharmacy #1234, Partial fill upon patient request if the prescription is for a schedule II opioid drug., 181,... Start Date: 08/07/20 Status: OrderedNitrostat 0.4 mg sublingual tablet 1 tablet = 0.4 mg, Sublingual, Every 5 minutes, 0 Refills, Maintenance, 10/06/18 14:56:14 EDT Start Date: 10/06/18 Status: Orderednystatin topical 090188 u/gm powder 1 application, Topically, 2 times a day, PRN Rash, apply to left upper thigh area, keep open to air as much as possible, # 60 Gm, 1 Refills, Maintenance, 12/07/20 13:52:00 EDT, Powder, [facility]/pharmacy #1234, 1 application Topically 2 times a day,PRN:Rash... Start Date: 12/07/20 Status: OrderedOxybutynin 0 Refills, Maintenance, 06/25/21 16:28:00 EST, Partial fill upon patient request if the prescriptionis for a schedule II opioid drug. Start Date: 06/25/21 Status: Orderedpravastatin 10 mg oral tablet 1 tablet = 10 mg, By Mouth, Daily, 0 Refills, Maintenance, 09/13/19 16:05:00 EDT Start Date: 09/13/19 Status: Orderedprochlorperazine 10 mg oral tablet 1 tablet = 10 mg, By Mouth, Every 6 hours, PRN as needed for nausea/vomiting, # 30 tablet, 1 Refills, Maintenance, 12/26/18 8:26:51 EDT Start Date: 12/26/18 Status: Orderedsenna - oral tablet 2 tablet, By Mouth, 2 times a day, PRN for constipation, # 120 tablet, 6 Refills, Maintenance, 12/26/18 8:26:56 EDT, Tablet Start Date: 12/26/18 Status: Orderedspironolactone 25 mg oral tablet 1 tablet = 25 mg, By Mouth, Daily, # 30 application, 0 Refills, Maintenance, 02/20/10 8:15:33 EDT, Tablet Start Date: 02/20/10 Status: OrderedSymbicort 160mcg/4.5mcg Inhaler 2, puffs, Inhalation, 2 times a day, # 10.2 Gm, Refills 0, Maintenance, 10/06/18 14:55:42 EDT, Aerosol Start Date: 10/06/18 Status: OrderedTrazodone By Mouth, 2 times a day, 0 Refills, Maintenance, 06/25/21 16:28:00 EST, Partial fill upon patient request if the prescription is for a schedule II opioid drug. Start Date: 06/25/21 Status: Ordered Problem List Condition Effective Dates Status Health Status Informant Rectal cancer(Confirmed) Active Social History Social History Type Response Smoking Status Never (less than 100 in life time) entered on: 10/21/19 Sex Male
--- OUTSIDE RECORDS SUMMARY | 2022-04-13 13:37 | XMS_ITS | Continuity of Care Document ---
:1960 Author Organization [facility] Address [address] [place] [phone]- Care Team Providers Name Role Phone Harini Longoria MD Primary Care Physician Encounter [facility] [place] Date(s): 07/13/19 - 07/13/[address] [address]- [facility] Attending Physician: Colin Canas MD, I Allergies, Adverse Reactions, Alerts Substance Reaction Severity Status NKA Active Medications albuterol (OP) 0 Refills, Maintenance, 2 Start Date: 10/06/18 Status: OrderedAtivan 0.5 mg oral tablet 1 tablet = 0.5 mg, By Mouth, Every 8 hours, as needed for anxiety, nausea, sleep, # 30 tablet, 0 Refills, Maintenance, 02/02/19 9:54:55 EDT, Tablet Start Date: 02/02/19 Status: Orderedcarvedilol 25 mg oral tablet 1 tablet = 25 mg, By Mouth, 2 times a day, # 60 application, 0 Refills, Maintenance, Tablet Start Date: 02/20/10 Status: OrderedColace sodium 100 mg oral capsule 100 mg, 1, capsule, By Mouth, 2 times a day, STOOL SOFTENER PLEASE DIRECT PATIENT TO GENERIC OTC IF NOT COVERED., # 60 capsule, Refills 1, Tot. Refills 1, Maintenance, 04/15/19 12:40:50 EST, Route to Pharmacy Electronically, [id number]... Start Date: 04/15/19 Status: Orderedfurosemide 40 mg oral tablet 1 tablet = 40 mg, By Mouth, Daily, # 60 application, 0 Refills, Maintenance, 02/20/10 8:15:30 EDT, Tablet Start Date: 02/20/10 Status: Orderedgabapentin 600 mg oral tablet 1 tablet = 600 mg, By Mouth, 3 times a day, # 270 tablet, 2 Refills, Maintenance, 06/22/19 12:22:00 EST, [id number], 178.2, cm, 05/20/19 8:32:00 EST, Height, 96.1, kg, 05/20/19 8:32:00 EST, Dry Weight Start Date: 06/22/19 Status: OrderedHydrOXYzine 0 Refills, Maintenance, 10/06/18 14:55:12 EDT Start Date: 10/06/18 Status: Orderedlevothyroxine 175 mcg (0.175 mg) oral tablet 1 tablet = 0.175 mg, By Mouth, Daily, # 30 application, 0 Refills, Maintenance, Tablet Start Date: 02/20/10 Status: Orderedlisinopril 40 mg oral tablet 1 tablet = 40 mg, By Mouth, Daily, # 30 application, 0 Refills, Maintenance, 02/20/10 8:15:29 EDT, Tablet Start Date: 02/20/10 Status: OrderedLomotil 0.025 mg-2.5 mg oral tablet 2, tablet, By Mouth, 4 times a day, PRN, # 100 tablet, Refills 1, Tot. Refills 1, Maintenance, for loose stool, 05/31/19 11:35:00 EST, [id number]t, 178.2, cm, 05/20/19 8:32:00 EST, Height, 96.1, kg, 05/02... Start Date: 05/31/19 Status: Orderedloperamide 2 mg oral capsule 4 mg, 2, capsule, By Mouth, Every 4 hours, PRN, not to exceed 8 capsules, or 16 mg, in 24 hours, # 60 capsule, Refills 1, Tot. Refills 1, Maintenance, for loose stool, 04/22/19 9:07:34 EST, Route to Pharmacy Electronically, [id number]... Start Date: 04/22/19 Status: Orderedmagnesium citrate 8.85% oral liquid 150 mL = 8.725 Gm, By Mouth, Once, PRN Constipation, take 1/2 bottle,if no BM in 6 hrs-take 1/2 bottle, # 300 mL, 0 Refills, Soft Stop, 01/22/19 17:04:18 EDT, Liquid, 150 mL By Mouth Once,PRN:Constipation,Instr:take 1/2 bottle,if no BM in 6 hrs-take... Start Date: 01/22/19 Status: OrderedMiraLax oral powder for reconstitution = 17 Gm, By Mouth, Daily, dissolve in water before taking, # 527 Gm, 0 Refills, Maintenance, 10/20/18 16:00:53 EDT, REC Powder, 17 Gm By Mouth Daily,Instr:dissolve in water before taking Start Date: 10/20/18 Status: OrderedNitrostat 0.4 mg sublingual tablet 1 tablet = 0.4 mg, Sublingual, Every 5 minutes, 0 Refills, Maintenance, 10/06/18 14:56:14 EDT Start Date: 10/06/18 Status: Orderednystatin topical 885325 u/gm powder 1 application, Topically, 2 times a day, PRN Rash, apply to left upper thigh area, keep open to air as much as possible, # 60 Gm, 1 Refills, Maintenance, 11/16/18 14:34:30 EDT, Powder, 1 application Topically 2 times a day,PRN:Rash,Instr:apply to left... Start Date: 11/16/18 Status: Orderedprochlorperazine 10 mg oral tablet 1 tablet = 10 mg, By Mouth, Every 6 hours, PRN as needed for nausea/vomiting, # 30 tablet, 1 Refills, Maintenance, 12/26/18 8:26:51 EDT Start Date: 12/26/18 Status: OrderedraNITIdine 150 mg oral tablet 1 tablet = 150 mg, By Mouth, 2 times a day, # 60 tablet, 4 Refills, Maintenance, 01/11/19 10:41:34 EDT, Tablet Start Date: 01/11/19 Status: Orderedsenna - oral tablet 2 tablet, By Mouth, 2 times a day, PRN for constipation, # 120 tablet, 6 Refills, Maintenance, 12/26/18 8:26:56 EDT, Tablet Start Date: 12/26/18 Status: Orderedsertraline 100 mg oral tablet 1 tablet = 100 mg, By Mouth, Daily, 0 Refills, Maintenance, 10/06/18 14:53:49 EDT Start Date: 10/06/18 Status: OrderedSilvadene 1% cream 1 application, Topically, 2 times a day, for 30 days, Apply to area affected by radiotherapy., # 400Gm, 2 Refills, Acute 08/10/19 8:37:59 EDT, 05/12/19 8:37:59 EST, Cream, 1 application Topically 2 times a day,x30 days,Instr:Apply to area affected by... Start Date: 05/12/19 Stop Date: 08/10/19 Status: Orderedspironolactone 25 mg oral tablet 1 tablet = 25 mg, By Mouth, Daily, # 30 application, 0 Refills, Maintenance, 02/20/10 8:15:33 EDT, Tablet Start Date: 02/20/10 Status: OrderedSymbicort 160mcg/4.5mcg Inhaler 2, puffs, Inhalation, 2 times a day, # 10.2 Gm, Refills 0, Maintenance, 10/06/18 14:55:42 EDT, Aerosol Start Date: 10/06/18 Status: OrderedtraZODone 100 mg oral tablet 100 mg, 1, tablet, By Mouth, 3 times a day, Refills 0, Maintenance, 10/06/18 14:54:11 EDT Start Date: 10/06/18 Status: Ordered Problem List Condition Effective Dates Status Health Status Informant Rectal cancer(Confirmed) Active Social History Social History Type Response Smoking Status Never (less than 100 in life time) entered on: 10/20/18 Sex
--- OUTSIDE RECORDS SUMMARY | 2022-04-13 13:37 | XMS_ITS | Continuity of Care Document ---
:1960 Author Organization [facility] Address [address] [place] [address]- Care Team Providers Name Role Phone Svetlana DE LA TORRE, Stephen Ross Primary Care Physician [phone] Encounter [facility] [place] Date(s): 09/18/20 - 10/18/20 [facility] [address] [place] [id number] Allergies, Adverse Reactions, Alerts Substance Reaction Severity Status NKA Active Immunizations Given and Recorded Vaccine Date Status [...] 16:04:00 EDT Start Date: 09/13/19 Status: Orderedduloxetine 30 mg oral enteric coated capsule 1 capsule = 30 mg, By Mouth, Daily, do not crush or chew, # 90 capsule, 4 Refills, Maintenance, 01/26/20 9:39:00 EDT, CR Capsule, [facility] #1234, 181, cm, 01/26/20 9:09:00 EDT, Height, 102.1, kg, 01/26/20 9:09:00 EDT, Dry Weight Start Date: 01/26/20 Status: Orderedduloxetine 60 mg oral enteric coated capsule 1 capsule = 60 mg, By Mouth, Daily, [facility], # 30 capsule, 0 Refills, Maintenance, 08/15/20 17:45:00 EDT, EC Capsule, Partial fill upon patient request if the prescription is for a schedule II opioid drug. Start Date: 08/15/20 Status: OrderedFlonase 50 mcg/inh nasal spray Daily, [...] a day, PRN, # 150 tablet, Refills 3, Tot. Refills 3, Maintenance, for loose stool, 08/18/20 11:04:00 EDT, Route to Pharmacy Electronically, [facility]/pharmacy #1234 Tablet, new script for dose and instructions., 181, cm, ... Start Date: 08/18/20 Status: OrderedMetamucil 3.4 gm/5.2 gm oral powder for reconstitution = 1.7 Gm, By Mouth, 3 times a day, PRN as needed for constipation, # 1,042 Gm, 1 Refills, Maintenance, 08/07/20 10:18:00 EST, REC Powder, [facility]/pharmacy #1234, Partial fill upon patient request if the prescription is for a schedule II opioid drug., 181,... Start Date: 08/07/20 Status: OrderedNitrostat 0.4 mg sublingual tablet 1 tablet = 0.4 mg, Sublingual, Every 5 minutes, 0 Refills, Maintenance, 10/06/18 14:56:14 EDT Start Date: 10/06/18 Status: OrderedNuLYTELY with Flavor Packs oral powder for reconstitution See Instructions, Please follow instruction sheet, # 4,000 mL, 0 Refills, Maintenance, 08/07/20 10:44:00 EST, [facility]/pharmacy #1234, Partial fill upon patient request if the prescription is for a scheduleII opioid drug., Please follow instruction sheet,... Start Date: 08/07/20 Status: Orderednystatin topical 033438 u/gm powder 1 application, Topically, 2 times a day, PRN Rash, apply to left upper thigh area, keep open to air as much as possible, # 60 Gm, 1 Refills, Maintenance, 07/05/20 10:23:00 EST, Powder, [facility]/pharmacy #1234, 1 application Topically 2 times a day,PRN:Rash... Start Date: 07/05/20 Status: OrderedoxyCODONE 5 mg oral tablet 5 mg, 1, tablet, By Mouth, Every 6 hours, PRN, Continue to decrease use as tolerated, # 42 tablet, Refills 0, Tot. Refills 0, Maintenance, Pain , Moderate, 07/28/19 11:56:00 EST, Route to Pharmacy Electronically, [facility]/pharmacy #1234, 178.2, cm, 2... Start Date: 07/28/19 Status: OrderedPEG-3350 with Electrolytes (Eqv-NuLYTELY) oral powder for reconstitution See Instructions, as directed, # 1 each, 0 Refills, Maintenance, 09/18/20 11:07:00 EDT, [facility] #[id number], Ok to sub for any gallon prep, as directed, 181, cm, 08/15/20 8:41:00 EDT, Height, 103, kg, 08/15/20 8:41:00 EDT, Dry Weight Start Date: 09/18/20 Status: Orderedpravastatin 10 mg oral tablet 1 tablet = 10 mg, By Mouth, Daily, 0 Refills, Maintenance, 09/13/19 16:05:00 EDT Start Date: 09/13/19 Status: Orderedprochlorperazine 10 mg oral tablet 1 tablet = 10 mg, By Mouth, Every 6 hours, PRN as needed for nausea/vomiting, # 30 tablet, 1 Refills, Maintenance, 12/26/18 8:26:51 EDT Start Date: 12/26/18 Status: OrderedReadi-Cat 2 oral suspension See Instructions, two pre-mixed 450mL Bottles take as directed, # 900 mL, 0 Refills, Maintenance, 11/30/19 10:33:00 EDT, [facility]/pharmacy #1234, two pre-mixed 450mL Bottles; take as directed, 181, cm, 10/21/19 11:23:00 EDT, Height, 97, kg, 10/21/19 11:23... Start Date: 11/30/19 Status: Orderedsenna - oral tablet 2 tablet, By Mouth, 2 times a day, PRN for constipation, # 120 tablet, 6 Refills, Maintenance, 12/26/18 8:26:56 EDT, Tablet Start Date: 12/26/18 Status: Orderedsertraline 100 mg oral tablet 1 tablet = 100 mg, By Mouth, Daily, # 30 tablet, 0 Refills, Maintenance, 10/21/19 9:55:00 EDT, Tablet Start Date: 10/21/19 Status: Orderedspironolactone 25 mg oral tablet 1 tablet = 25 mg, By Mouth, Daily, # 30 application, 0 Refills, Maintenance, 02/20/10 8:15:33 EDT, Tablet Start Date: 02/20/10 Status: OrderedSymbicort 160mcg/4.5mcg Inhaler 2, puffs, Inhalation, 2 times a day, # 10.2 Gm, Refills 0, Maintenance, 10/06/18 14:55:42 EDT, Aerosol Start Date: 10/06/18 Status: Ordered Problem List Condition Effective Dates Status Health Status Informant Rectal cancer(Confirmed) Active Social History Social History Type Response Smoking Status Never (less than 100 in life time) entered on: 10/21/19 Sex Male
--- OUTSIDE RECORDS SUMMARY | 2022-04-13 13:37 | XMS_ITS | Continuity of Care Document ---
:1960 Author Organization [facility] Address [address] [place] [address]- Care Team Providers Name Role Phone Harini Longoria MD Primary Care Physician Encounter [facility] [place] Date(s): 11/30/19 - 12/30/19 [facility] [address] [address]- [facility] Allergies, Adverse Reactions, Alerts Substance Reaction Severity Status NKA Active Immunizations Given and Recorded Vaccine Date Status Refusal Reason tetanus/diphtheria/pertussis, acel(Tdap) 10/21/19 Given Medications albuterol 90 [...] Daily, do not crush or chew, # 30 capsule, 0 Refills, Maintenance, 10/28/19 15:02:00 EDT, CR Capsule, [id number], 181, cm, 10/21/19 11:23:00 EDT, Height, 97, kg, 10/21/19 11:23:00 EDT, Dry Weight Start Date: 10/28/19 Status: OrderedFlonase 50 mcg/inh nasal spray Daily, [...] Tot. Refills 1, Maintenance, for loose stool, 12/07/19 15:17:00 EDT, Route to Pharmacy Electronically, [facility]/pharmacy #[id number] Tablet, 181, cm, 10/21/19 11:23:00 EDT, Height, 97, kg, ... Start Date: 12/07/19 Status: OrderedNitrostat 0.4 mg sublingual tablet 1 tablet = 0.4 mg, Sublingual, Every 5 minutes, 0 Refills, Maintenance, 10/06/18 14:56:14 EDT Start Date: 10/06/18 Status: Orderednystatin topical 964063 u/gm powder 1 application, Topically, 2 times a day, PRN Rash, apply to left upper thigh area, keep open to air as much as possible, # 60 Gm, 1 Refills, Maintenance, 11/17/19 11:20:00 EDT, Powder, [facility]/pharmacy #1234, 1 application Topically 2 times a day,PRN:Rash... Start Date: 11/17/19 Status: OrderedoxyCODONE 5 mg oral tablet 5 mg, 1, tablet, By Mouth, Every 6 hours, PRN, Continue to decrease use as tolerated, # 42 tablet, Refills 0, Tot. Refills 0, Maintenance, Pain , Moderate, 07/28/19 11:56:00 EST, Route to Pharmacy Electronically, [facility]/pharmacy #1234, 178.2, cm, ... Start Date: 07/28/19 Status: Orderedpravastatin 10 mg oral tablet 1 [...] mL, 0 Refills, Maintenance, 11/30/19 10:33:00 EDT, [facility]/pharmacy #1234, two pre-mixed 450mL Bottles; take as [...]
--- OUTSIDE RECORDS SUMMARY | 2022-04-13 13:37 | XMS_ITS | Continuity of Care Document ---
:1960 Author Organization [facility] Address [address] [place] [address]- Care Team Providers Name Role Phone Harini Longoria MD Primary Care Physician En[facility] [place] Date(s): 10/01/19 - 05/16/20 [facility] [address] [place] [address]- Discharge Disposition: A-D/C Home Attending Physician: Bassam Call MD Admitting Physician: Bassam Call MD Referring Physician: Harini Longoria MD Allergies, Adverse Reactions, Alerts Substance Reaction Severity [...] 08/17/19 12:40:00 EDT Start Date: 08/17/19 Status: Orderedatropine-diphenoxylate 0.025 mg-2.5 mg oral tablet 1, tablet, By Mouth, 3 times a day, PRN, for 30 days, # 100 tablet, Refills 0, Tot. Refills 0, Acute, for loose stool, 05/17/20 16:57:00 EST, 04/17/20 16:57:00 EST, Route to Pharmacy Electronically, [facility]/pharmacy #1234 Tablet, Partial fill upon patient... Start Date: 04/17/20 Stop Date: 05/17/20 Status: Orderedcarvedilol 3.125 mg oral tablet 3.125 mg, 1, tablet, By Mouth, 2 times a day, Refills 0, Maintenance, 09/13/19 16:04:00 EDT Start Date: 09/13/19 Status: Orderedduloxetine 30 mg oral enteric coated capsule 1 capsule = 30 mg, By Mouth, Daily, do not crush or chew, # 90 capsule, 4 Refills, Maintenance, 01/26/20 9:39:00 EDT, CR Capsule, [facility]/pharmacy #1234, 181, cm, 01/26/20 9:09:00 EDT, Height, 102.1, kg, 01/26/20 9:09:00 EDT, Dry Weight Start Date: 01/26/20 Status: OrderedFlonase 50 mcg/inh nasal spray Daily, [...] Tot. Refills 1, Maintenance, for loose stool, 04/18/20 17:22:00 EST, Route to Pharmacy Electronically, [facility]/pharmacy #1234 Tablet, new script for dose and instructions., 181, cm, ... Start Date: 04/18/20 Status: OrderedNitrostat 0.4 mg sublingual tablet 1 tablet = 0.4 mg, Sublingual, Every 5 minutes, 0 Refills, Maintenance, 05/07/19 14:56:14 EDT Start Date: 10/06/18 Status: Orderednystatin topical 568585 u/gm powder 1 application, Topically, 2 times a day, PRN Rash, apply to left upper thigh area, keep open to air as much as possible, # 60 Gm, 1 Refills, Maintenance, 11/17/19 11:20:00 EDT, Powder, [facility]/pharmacy #1234, 1 application Topically 2 times a day,PRN:Rash... Start Date: 11/17/19 Status: OrderedoxyCODONE 5 mg oral tablet 5 mg, 1, tablet, By Mouth, Every 6 hours, PRN, Continue to decrease use as tolerated, # 42 tablet, Refills 0, Tot. Refills 0, Maintenance, Pain , Moderate, 07/28/19 11:56:00 EST, Route to Pharmacy Electronically, [facility]/pharmacy #1234, 178.2, cm, ... Start Date: 07/28/19 [...] mL, 0 Refills, Maintenance, 11/30/19 10:33:00 EDT, [facility]/pharmacy #1234, two pre-mixed 450mL Bottles; take as [...] Status Health Status Informant Rectal cancer(Confirmed) Active Vital Signs Most recent to oldest [Reference Range]: 1 Height 181 cm (01/26/20 9:09 AM) Weight 102.1 kg (01/26/20 9:09 AM) Pulse Rate [55-90 bpm] 73 bpm (01/26/20 9:09 AM) Body Mass Index [18.5-24.99] 31.17 *>HHI* (01/26/20 9:09 AM) Blood Pressure [90-138/55-84 mm Hg] 168/96 mm Hg *H* (01/26/20 9:09 AM) Temperature [96.8-100.4 DegF] 98.0 DegF (01/26/20 9:09 AM) Blood pressure sites Arm, right (01/26/20 9:09 AM) Temperature Route Temporal (01/26/20 9:09 AM) Dry Weight 102.1 kg (01/26/20 9:09 AM) Weight Obtained Via Standing scale (01/26/20 9:09 AM) Dry Weight Obtained Via Standing scale (01/26/20 9:09 AM) Social History Social History Type Response Smoking Status Never (less than 100 in life time) entered on: 10/21/19 Sex Male
--- OUTSIDE RECORDS SUMMARY | 2022-04-13 13:37 | XMS_ITS | Continuity of Care Document ---
:1960 Author Organization [address] [place] [address]- Care Team Providers Name Role Phone Stephen Mota MD Primary Care Physician [place] [facility] [place] 04/01/[address] [place] [address]- Encounter Diagnosis Rectal cancer (Discharge Diagnosis) - 03/25/22 Diarrhea (Discharge Diagnosis) - 03/25/22 Attending Physician: Ai Dolan MD Referring Physician: Stephen Mota MD Allergies, Adverse Reactions, Alerts No Known Allergies [...] 09/13/19 16:04:00 EDT Start Date: 09/13/19 Status: OrderedCentrum Silver Men's 1 tablet, By Mouth, Daily, 0 Refills, Maintenance, 08/09/21 7:34:00 EST, Partial fill upon patient request if the prescription is for a schedule II opioid drug. Start Date: 08/09/21 Status: Orderedcholestyramine 4 gm/9 gm oral powder for reconstitution = 4 Gm, By Mouth, 2 times a day, # 60 each, 5 Refills, Maintenance, 03/25/22 10:34:00 EDT, [facility] #[id number], Partial fill upon patient request if the prescription is for a schedule II opioiddrug., 180, cm, 03/25/22 9:44:00 EDT, Height, 87.... Start Date: 03/25/22 Status: Orderedduloxetine 60 mg oral enteric coated capsule 1 capsule = 60 mg, By Mouth, Daily, [facility], # 30 capsule, 0 Refills, Maintenance, 08/15/20 17:45:00 EDT, [facility], Partial fill upon patient request if the prescription is for a schedule II opioid drug. Start Date: 08/15/20 Status: OrderedEntresto 24 mg-26 mg oral tablet 1 tablet, By Mouth, 2 times a day, 0 Refills, Maintenance, 02/12/22 11:28:00 EDT, Partial fill upon patient request if the prescription is for a schedule II opioid drug. Start Date: 02/12/22 Status: Orderedfamotidine 20 mg oral tablet 20 mg, 1, tablet, By Mouth, 2 times a day, # 180 tablet, Refills 0, Tot. Refills 0, Maintenance, 05/07/21 13:10:00 EST, Route to Pharmacy Electronically, [facility]/pharmacy #[id number], Partial fill upon patient request if the prescription is for a schedule II op... Start Date: 05/07/21 Status: OrderedFlonase 50 mcg/inh nasal spray Daily, 0 Refills, Maintenance, 08/17/19 12:54:00 EDT Start Date: 08/17/19 Status: Orderedlevothyroxine 175 mcg (0.175 mg) oral tablet 1 tablet = 0.175 mg, By Mouth, Daily, # 30 application, 0 Refills, Maintenance, Tablet Start Date: 02/20/10 Status: OrderedLomotil 0.025 mg-2.5 mg oral tablet 2, tablet, By Mouth, 4 times a day, PRN, # 240 tablet, Refills 1, Tot. Refills 1, Maintenance, for loose stool, 10/16/21 14:08:00 EDT, [id number], new script for dose and instructions., 180, cm... Start Date: 10/16/21 Status: OrderedMetamucil 3.4 gm/5.2 gm oral powder for reconstitution = 1.7 Gm, By Mouth, 3 times a day, PRN as needed for constipation, # 1,042 Gm, 1 Refills, Maintenance, 08/07/20 10:18:00 EST, REC Powder, [facility]/pharmacy #1234, Partial fill upon patient request if the prescription is for a schedule II opioid drug., 181,... Start Date: 08/07/20 Status: OrderedNitrostat 0.4 mg sublingual tablet 1 tablet = 0.4 mg, Sublingual, Every 5 minutes, 0 Refills, Maintenance, 10/06/18 14:56:14 EDT Start Date: 10/06/18 Status: Orderednystatin topical 203967 u/gm powder 1 application, Topically, 2 times a day, PRN Rash, apply to left upper thigh area, keep open to air as much as possible, # 60 Gm, 1 Refills, Maintenance, 12/07/20 13:52:00 EDT, Powder, [facility]/pharmacy #1234, 1 application Topically 2 times [...] Status: OrderedReadi-Cat 2 oral suspension See Instructions, 2 premixed 450 mL bottles Take as directed, # 900 mL, 0 Refills, Maintenance, 10/15/21 10:51:00 EDT, [facility] #[id number], Partial fill upon patient request if the prescriptionis for a schedule II opioid drug., 2 premixed 45... Start Date: 10/15/21 Status: Orderedsenna - oral tablet 2 tablet, [...] 14:55:42 EDT, Aerosol Start Date: 10/06/18 Status: Orderedtorsemide 20 mg oral tablet 1 tablet = 20 mg, By Mouth, 2 times a day, # 60 tablet, 4 Refills, Maintenance, 08/09/21 12:09:00 EST, Tablet, [facility] 3, Partial fill upon patient request if the prescription is for a schedule II opioid drug., 180, cm, 08/09/21 7:38:00... Start Date: 08/09/21 Status: OrderedTrazodone = 100 mg, By Mouth, Daily at bedtime, 0 Refills, Maintenance, 06/25/21 16:28:00 EST, Partial fill upon patient request if the prescription is for a schedule II opioid drug. Start Date: 06/25/21 Status: Ordered Problem List Condition Confirmation Course Effective Dates Status Health Stat us Informant Diarrhea Confirmed Active Rectal cancer Confirmed Active Diagnosis Diagnosis Type Effective Dates Health Status Clinical In formant Service Rectal cancer Discharge 03/25/22 Diagnosis Diarrhea Discharge 03/25/22 Diagnosis Vital Signs Most recent to oldest [Reference Range]: 1 Height 180 cm (03/25/22 9:44 AM) Weight 88.5 kg (03/25/22 9:44 AM) Pulse Rate [55-90 bpm] 74 bpm (03/25/22 9:44 AM) Body Mass Index [18.5-24.99 kg/m2] 27.31 kg/m2 *H* (03/25/22 9:44 AM) Blood Pressure [90-138/55-84 mm Hg] 114/73 mm Hg (03/25/22 9:44 AM) Temperature [96.8-100.4 DegF] 97.4 DegF (03/25/22 9:44 AM) Blood pressure sites Arm, right (03/25/22 9:44 AM) Temperature Route Temporal (03/25/22 9:44 AM) Social History Social History Type Response Smoking Status Never (less than 100 in life time) entered on: 10/21/19 Sex Male Patient Care team information PersonnelName: Svetlana DE LA TORRE, Stephen Ross Address: Address: [address] [place] [address] [place] [address]
--- OUTSIDE RECORDS SUMMARY | 2022-04-13 13:37 | XMS_ITS | Continuity of Care Document ---
:1960 Author Organization [facility] Address [address] [place] [address]- Care Team Providers Name Role Phone Svetlana DE LA TORRE, Stephen Ross Primary Care Physician Encounter [facility] [place] Date(s): 09/19/20 - 10/19/20 [facility] [address] [place] [id number] Allergies, Adverse Reactions, Alerts Substance [...] 08/18/20 11:04:00 EDT, Route to Pharmacy Electronically, [facility]/pharmacy #1234 Tablet, new script for dose and instructions., 181, cm, ... Start Date: 08/18/20 Status: OrderedMetamucil 3.4 gm/5.2 gm oral powder for reconstitution = 1.7 Gm, By Mouth, 3 times a day, PRN as needed for constipation, # 1,042 Gm, 1 Refills, Maintenance, 08/07/20 10:18:00 EST, REC Powder, [facility]/pharmacy #1234, Partial fill upon patient request if [...] mL, 0 Refills, Maintenance, 08/07/20 10:44:00 EST, [facility]/pharmacy #1234, Partial fill upon patient request if the prescription is for a scheduleII opioid drug., Please follow instruction sheet,... Start Date: 08/07/20 Status: Orderednystatin topical 112678 u/gm powder 1 application, Topically, 2 times a day, PRN Rash, apply to left upper thigh area, keep open to air as much as possible, # 60 Gm, 1 Refills, Maintenance, 07/05/20 10:23:00 EST, Powder, [facility]/pharmacy #1234, 1 application Topically 2 times a day,PRN:Rash... Start Date: 07/05/20 Status: OrderedoxyCODONE 5 mg oral tablet 5 mg, 1, tablet, By Mouth, Every 6 hours, PRN, Continue to decrease use as tolerated, # 42 tablet, Refills 0, Tot. Refills 0, Maintenance, Pain , Moderate, 07/28/19 11:56:00 EST, Route to Pharmacy Electronically, [facility]/pharmacy #1234, 178.2, cm, 2... Start Date: 07/28/19 Status: OrderedPEG-3350 with Electrolytes (Eqv-NuLYTELY) oral powder for reconstitution See Instructions, as directed, # 1 each, 0 Refills, Maintenance, 09/18/20 11:07:00 EDT, [facility] #[id number], Ok to sub for any gallon prep, [...] mL, 0 Refills, Maintenance, 11/30/19 10:33:00 EDT, [facility]/pharmacy #1234, two pre-mixed 450mL Bottles; take as [...]
--- OUTSIDE RECORDS SUMMARY | 2022-04-13 13:37 | XMS_ITS | Continuity of Care Document ---
:1960 Author Organization [facility] Address [address] [place] [address]- Care Team Providers Name Role Phone Harini Longoria MD Primary Care Physician Encounter [facility] [place] Date(s): 09/22/19 - 10/22/[address] [address]- [facility] Attending Physician: Not on Staff, Attending MD Admitting Physician: Not on Staff, Admitting MD Referring Physician: Not on Staff, Referring MD Allergies, Adverse Reactions, Alerts Substance Reaction [...] 09/13/19 16:04:00 EDT Start Date: 09/13/19 Status: OrderedFlonase 50 mcg/inh nasal spray Daily, [...] 08/17/19 12:40:00 EDT Start Date: 08/17/19 Status: OrderedNitrostat 0.4 mg sublingual tablet 1 tablet = 0.4 mg, Sublingual, Every 5 minutes, 0 Refills, Maintenance, 10/06/18 14:56:14 EDT Start Date: 10/06/18 Status: Orderednystatin topical 567942 u/gm powder 1 application, Topically, 2 times a day, PRN Rash, apply to left upper thigh area, keep open to air as much as possible, # 60 Gm, 1 Refills, Maintenance, 11/16/18 14:34:30 EDT, Powder, 1 application Topically 2 times a day,PRN:Rash,Instr:apply to left... Start Date: 11/16/18 Status: OrderedoxyCODONE 5 mg oral tablet 5 mg, 1, tablet, By Mouth, Every 6 hours, PRN, Continue to decrease use as tolerated, # 42 tablet, Refills 0, Tot. Refills 0, Maintenance, Pain , Moderate, 07/28/19 11:56:00 EST, Route to Pharmacy Electronically, [facility]/pharmacy #1234, 178.2, cm, ... Start Date: [...]
--- OUTSIDE RECORDS SUMMARY | 2022-04-13 13:37 | XMS_ITS | Continuity of Care Document ---
:1960 Author Organization [facility] Address [address] [place] [address]- Care Team Providers Name Role Phone Harini Longoria MD Primary Care Physician En[place] [facility] [place] [id number] Date(s): 07/19/20 - 08/18/20 [facility] [address] [place], [place] [address] Attending Physician: Savi Overton Admitting Physician: AdmtrSavi Referring Physician: Admtr ArFelicitas Allergies, Adverse Reactions, Alerts Substance Reaction Severity Status NKA Active Immunizations Given and Recorded Vaccine Date Status Refusal Reason SARS-CoV-2 (COVID-19) mRNA BNT-162b2 vac 08/09/20 Given [...] Refills, Maintenance, 01/26/20 9:39:00 EDT, CR Capsule, [facility]/pharmacy #1234, 181, cm, 01/26/20 9:09:00 EDT, Height, [...] 08/18/20 11:04:00 EDT, Route to Pharmacy Electronically, [facility]/pharmacy #1234 Tablet, new script for dose and instructions., 181, cm, ... Start Date: 08/18/20 Status: OrderedMetamucil 3.4 gm/5.2 gm oral powder for reconstitution = 1.7 Gm, By Mouth, 3 times a day, PRN as needed for constipation, # 1,042 Gm, 1 Refills, Maintenance, 08/07/20 10:18:00 EST, REC Powder[facility], Partial fill upon patient request if [...] mL, 0 Refills, Maintenance, 08/07/20 10:44:00 EST, [facility], Partial fill upon patient request if the prescription is for a scheduleII opioid drug., Please follow instruction sheet,... Start Date: 08/07/20 Status: Orderednystatin topical 546085 u/gm powder 1 application, Topically, 2 times a day, PRN Rash, apply to left upper thigh area, keep open to air as much as possible, # 60 Gm, 1 Refills, Maintenance, 07/05/20 10:23:00 EST, Powder, [facility]/pharmacy #1234, 1 application Topically 2 times a day,PRN:Rash... Start Date: 07/05/20 Status: OrderedoxyCODONE 5 mg oral tablet 5 mg, 1, tablet, By Mouth, Every 6 hours, PRN, Continue to decrease use as tolerated, # 42 tablet, Refills 0, Tot. Refills 0, Maintenance, Pain , Moderate, 07/28/19 11:56:00 EST, [facility]ically[facility], 178.2, cm, ... Start Date: 07/28/19 [...] mL, 0 Refills, Maintenance, 11/30/19 10:33:00 EDT, [facility]/pharmacy #1234, two pre-mixed 450mL Bottles; take [...]
--- OUTSIDE RECORDS SUMMARY | 2022-04-13 13:37 | XMS_ITS | Continuity of Care Document ---
:1960 Author Organization [facility] Address [address] [place] [address]- Care Team Providers Name Role Phone Harini Longoria MD Primary Care Physician Encounter 09/30/19 - 11/25/19 [facility] [address] [place] [address]- [facility] Discharge Disposition: GOALS MET Allergies, Adverse Reactions, Alerts Substance Reaction Severity [...] EDT Start Date: 10/06/18 Status: Orderednystatin topical 570151 u/gm powder 1 application, Topically, 2 times a day, PRN Rash, apply to left upper thigh area, keep open to air as much as possible, # 60 Gm, 1 Refills, Maintenance, 11/17/19 11:20:00 EDT, Powder, [facility]/pharmacy #1234, 1 application Topically 2 times a day,PRN:Rash... Start Date: 11/17/19 Status: OrderedoxyCODONE 5 mg oral tablet 5 mg, 1, tablet, By Mouth, Every 6 hours, PRN, Continue to decrease use as tolerated, # 42 tablet, Refills 0, Tot. Refills 0, Maintenance, Pain , Moderate, 07/28/19 11:56:00 EST, Route to Pharmacy Electronically, [facility]/pharmacy #1234, 178.2, cm, ... Start Date: 07/28/19 [...]
--- OUTSIDE RECORDS SUMMARY | 2022-04-13 13:37 | XMS_ITS | Continuity of Care Document ---
:1960 Author Organization [facility] re Address [address] [place] [address]- Care Team Providers Name Role Phone Stephen Mota MD Primary Care Physician [phone] Encounter [facility] ACCT R [id number] Date(s): 01/15/22 - 02/14/22 [facility] [address] [place], [place] [address] Attending Physician: Savi Overton Admitting Physician: AdmtrSavi Referring Physician: Admtr, ArFelicitas Allergies, Adverse Reactions, Alerts No Known Allergies [...] II opioid drug. Start Date: 08/09/21 Status: Orderedduloxetine 60 mg oral enteric coated [...] 05/07/21 13:10:00 EST, Route to Pharmacy Electronically, [facility]/pharmacy #[id number], Partial fill upon patient request if the [...] 10/16/21 14:08:00 EDT, Route to Pharmacy Electronically, [facility] #[id number] Tablet, new script for dose and instructions., 180, cm... Start Date: 10/16/21 Status: OrderedMetamucil 3.4 gm/5.2 gm oral powder for reconstitution = 1.7 Gm, By Mouth, 3 times a day, PRN as needed for constipation, # 1,042 Gm, 1 Refills, Maintenance, 08/07/20 10:18:00 EST, REC Powder, [facility]/pharmacy #1234, Partial fill upon patient request if the prescription is for a schedule II opioid drug., 181,... Start Date: 08/07/20 Status: OrderedNitrostat 0.4 mg sublingual tablet 1 tablet = 0.4 mg, Sublingual, Every 5 minutes, 0 Refills, Maintenance, 10/06/18 14:56:14 EDT Start Date: 10/06/18 Status: Orderednystatin topical 796705 u/gm powder 1 application, Topically, 2 times a day, PRN Rash, apply to left upper thigh area, keep open to air as much as possible, # 60 Gm, 1 Refills, Maintenance, 12/07/20 13:52:00 EDT, Powder, [facility]acy #1234, 1 application Topically 2 times a [...] mL, 0 Refills, Maintenance, 10/15/21 10:51:00 EDT, [facility] #[id number], Partial fill upon patient request if the [...] 4 Refills, Maintenance, 08/09/21 12:09:00 EST, Tablet, [facility], Partial fill upon patient request if [...] life time) entered on: 10/21/19 Sex Male Care Team PersonnelName: Svetlana DE LA TORRE, Stephen Ross Address: [address] [place] [id number]
--- OUTSIDE RECORDS SUMMARY | 2022-04-13 13:37 | XMS_ITS | Continuity of Care Document ---
:1960 Author Organization [facility] re Address [address] [place] [address]- Care Team Providers Name Role Phone Stephen Mota MD Primary Care Physician [place] [facility] [place] 08/25/21 [facility] [address] [place] [address]- Discharge Disposition: A-D/C Home Attending Physician: Bassam Call MD Admitting Physician: Bassam Call MD Referring Physician: Stephen Mota MD Allergies, [...] 05/07/21 13:10:00 EST, Route to Pharmacy Electronically, [facility]/pharmacy #1234, Partial fill upon patient request [...] 12/29/20 9:26:00 EDT, Route to Pharmacy Electronically, [facility]/pharmacy #1234 Tablet, new script for dose and instructions., 180, cm, 10/16/20... Start Date: 12/29/20 Status: OrderedMetamucil 3.4 gm/5.2 gm oral powder for reconstitution = 1.7 Gm, By Mouth, 3 times a day, PRN as needed for constipation, # 1,042 Gm, 1 Refills, Maintenance, 08/07/20 10:18:00 EST, REC Powder, [facility]/pharmacy #1234, Partial fill upon patient request if the prescription is for a schedule II opioid drug., 181,... Start Date: 08/07/20 Status: OrderedNitrostat 0.4 mg sublingual tablet 1 tablet = 0.4 mg, Sublingual, Every 5 minutes, 0 Refills, Maintenance, 10/06/18 14:56:14 EDT Start Date: 10/06/18 Status: Orderednystatin topical 283644 u/gm powder 1 application, Topically, 2 times a day, PRN Rash, apply to left upper thigh area, keep open to air as much as possible, # 60 Gm, 1 Refills, Maintenance, 12/07/20 13:52:00 EDT, Powder, [facility]/pharmacy #1234, 1 application Topically 2 times [...] 4 Refills, Maintenance, 08/09/21 12:09:00 EST, Tablet, [facility], Partial fill upon patient request [...] recent to oldest [Reference Range]: 1 Height 181.5 cm (06/25/21 2:37 PM) Weight 95.5 kg (06/25/21 2:37 PM) Pulse Rate [55-90 bpm] 112 bpm *H* (06/25/21 2:37 PM) Body Mass Index [18.5-24.99] 28.99 *H* (06/25/21 2:37 PM) Blood Pressure [90-138/55-84 mm Hg] 129/88 mm Hg (06/25/21 2:37 PM) Temperature [96.8-100.4 DegF] 99.5 DegF (06/25/21 2:37 PM) Blood pressure sites Arm, left (06/25/21 2:37 PM) Temperature Route Temporal (06/25/21 2:37 PM) Dry Weight 95.5 kg (06/25/21 2:37 PM) Weight Obtained Via Standing scale (06/25/21 2:37 PM) Dry Weight Obtained Via Standing scale (06/25/21 2:37 PM) Social History Social History Type Response Smoking Status Never (less than 100 in life time) entered on: 10/21/19 Sex Male
--- OUTSIDE RECORDS SUMMARY | 2022-04-13 13:37 | XMS_ITS | Continuity of Care Document ---
:1960 Author Organization [facility] Address [address] [place] [address]- Care Team Providers Name Role Phone Stephen Mota MD Primary Care Physician [place] [facility] Date(s): 08/09/21 - 08/09/[address] [address] Discharge Disposition: A-D/C Home Attending Physician: Juancarlos Kern MD Admitting Physician: Juancarlos Kern MD Referring Physician: Juancarlos Kern MD Allergies, Adverse Reactions, Alerts No Known [...] 05/07/21 13:10:00 EST, Route to Pharmacy Electronically, [facility]/pharmacy #1234, Partial fill upon patient request if [...] 12/29/20 9:26:00 EDT, Route to Pharmacy Electronically, [facility]/pharmacy #1234 Tablet, new script for dose and instructions., 180, cm, 10/16/20... Start Date: 12/29/20 Status: OrderedMetamucil 3.4 gm/5.2 gm oral powder for reconstitution = 1.7 Gm, By Mouth, 3 times a day, PRN as needed for constipation, # 1,042 Gm, 1 Refills, Maintenance, 08/07/20 10:18:00 EST, REC Powder, [facility]/pharmacy #1234, Partial fill upon patient request if the prescription is for a schedule II opioid drug., 181,... Start Date: 08/07/20 Status: OrderedNitrostat 0.4 mg sublingual tablet 1 tablet = 0.4 mg, Sublingual, Every 5 minutes, 0 Refills, Maintenance, 10/06/18 14:56:14 EDT Start Date: 10/06/18 Status: Orderednystatin topical 605066 u/gm powder 1 application, Topically, 2 times a day, PRN Rash, apply to left upper thigh area, keep open to air as much as possible, # 60 Gm, 1 Refills, Maintenance, 12/07/20 13:52:00 EDT, Powder, [facility]/pharmacy #1234, 1 application Topically 2 times a [...] 4 Refills, Maintenance, 08/09/21 12:09:00 EST, Tablet, [facility], Partial fill upon patient request if [...] Active Vital Signs Most recent to oldest 1 2 3 [Reference Range]: Height 180 cm 180 cm (08/09/21 7:15 AM) (08/09/21 7:15 AM) Weight 91.6 kg 91.6 kg (08/09/21 7:15 AM) (08/09/21 7:15 AM) Oxygen Saturation [94-100 %] 96 % 95 % 92 % (08/09/21 1:00 PM) (08/09/21 12:30 PM) *L* (08/09/21 12:00 P M) Pulse Rate [55-90 bpm] 80 bpm (08/09/21 7:15 AM) Body Mass Index [18.5-24.99] 28.27 *H* (08/09/21 7:15 AM) Blood Pressure [90-138/55-84 124/99 mm Hg 120/95 mm Hg 118 /84 mm Hg mm Hg] (08/09/21 1:00 PM) (08/09/21 12:30 PM) (08/09/21 12 :00 PM) Respiratory Rate [16-30 19 br/min 17 br/min 17 br/mi n br/min] (08/09/21 1:00 PM) (08/09/21 12:30 PM) (08/09/21 12 :00 PM) Temperature [96.8-100.4 97.7 DegF 98.7 DegF DegF] (08/09/21 10:30 AM) (08/09/21 7:15 AM) Mode of Delivery (Oxygen) Room air Room air Room a ir (08/09/21 1:00 PM) (08/09/21 12:30 PM) (08/09/21 12 :00 PM) Blood pressure sites Arm, left Arm, left Arm, left (08/09/21 1:00 PM) (08/09/21 12:30 PM) (08/09/21 12 :00 PM) Temperature Route Temporal Temporal (08/09/21 10:30 AM) (08/09/21 7:15 AM) Dry Weight 91.6 kg (08/09/21 7:15 AM) Weight Obtained Via Standing scale Standing scale (08/09/21 7:15 AM) (08/09/21 7:15 AM) Dry Weight Obtained Via Standing scale (08/09/21 7:15 AM) Social History Social History Type Response Smoking Status Never (less than 100 in life time) entered on: 10/21/19 Sex Male
--- OUTSIDE RECORDS SUMMARY | 2022-04-13 13:37 | XMS_ITS | Continuity of Care Document ---
:1960 Author Organization [facility] Address [address] [place] [address]- Care Team Providers Name Role Phone Harini Longoria MD Primary Care Physician [place] [facility] [place] [id number] Date(s): 09/17/19 - 09/27/19 [facility] [address] [place] [address]- [facility] Attending Physician: Savi Overton Admitting Physician: AdmtrSavi Referring Physician: Admtr ArFelicitas Allergies, Adverse Reactions, Alerts Substance Reaction Severity Status NKA Active Medications albuterol 90 mcg/inh inhalation powder 1 puffs, Inhalation, Every 6 hours, PRN as needed, # 1 each, 0 Refills, Maintenance, 08/17/19 12:38:00 EDT, Powder Start Date: 08/17/19 Status: OrderedamLODIPine 10 mg oral tablet 10 mg, 1, tablet, By Mouth, Daily, Refills 0, Maintenance, 08/17/19 12:40:00 EDT Start Date: 08/17/19 Status: OrderedAtivan 0.5 mg oral tablet 1 tablet = 0.5 mg, By Mouth, Every 8 hours, as needed for anxiety, nausea, sleep, # 30 tablet, 0 Refills, Maintenance, 02/02/19 9:54:55 EDT, Tablet Start Date: 02/02/19 Status: Orderedcarvedilol 3.125 mg oral tablet 3.125 mg, 1, tablet, By Mouth, 2 times a day, Refills 0, Maintenance, 09/13/19 16:04:00 EDT Start Date: 09/13/19 Status: OrderedFlonase 50 mcg/inh nasal spray Daily, 0 Refills, Maintenance, 08/17/19 12:54:00 EDT Start Date: 08/17/19 Status: OrderedLasix 20 mg oral tablet 20 mg, 1, tablet, By Mouth, Daily, Refills 0, Maintenance, 09/13/19 15:31:00 EDT Start [...] Tot. Refills 1, Maintenance, for loose stool, 08/26/19 13:26:00 EDT, Route to Pharmacy Electronically, [facility]/pharmacy #1234 Tablet, 180, cm, 08/17/19 12:26:00 EDT, Height, 101, kg, ... Start Date: 08/26/19 Status: OrderedNitrostat 0.4 mg sublingual tablet 1 tablet = 0.4 mg, Sublingual, Every 5 minutes, 0 Refills, Maintenance, 10/06/18 14:56:14 EDT Start Date: 10/06/18 Status: Orderednystatin topical 282921 u/gm powder 1 application, Topically, 2 times [...] 07/28/19 11:56:00 EST, Route to Pharmacy Electronically, [facility]/pharmacy #1234, 178.2, cm, ... Start Date: 07/28/19 [...] in life time) entered on: 10/20/18 Sex Male
--- OUTSIDE RECORDS SUMMARY | 2022-04-13 13:37 | XMS_ITS | Continuity of Care Document ---
:1960 Author Organization [facility] Address [address] [place] [address]- Care Team Providers Name Role Phone Harini Longoria MD Primary Care Physician [place] [facility] [place] [facility] [id number] Date(s): 10/01/19 - 10/31/19 [facility] [address] [place] [address]- [facility] Attending Physician: Savi Overton Admitting Physician: AdmtrSavi Referring Physician: AdmtrSavi Allergies, Adverse Reactions, Alerts Substance Reaction Severity [...] Refills, Maintenance, 10/28/19 15:02:00 EDT, CR Capsule, [facility]/pharmacy #1234, 181, cm, 10/21/19 11:23:00 EDT, Height, [...] EDT Start Date: 10/06/18 Status: Orderednystatin topical 209983 u/gm powder 1 application, Topically, 2 times [...] 07/28/19 11:56:00 EST, Route to Pharmacy Electronically, [facility]/pharmacy #1234, 178.2, cm, ... Start [...]
--- OUTSIDE RECORDS SUMMARY | 2022-04-13 13:37 | XMS_ITS | Continuity of Care Document ---
:1960 Author Organization [facility] Address [address] [place] [address]- Care Team Providers Name Role Phone Svetlana DE LA TORRE, Stephen Ross Primary Care Physician [place] [facility] [place](s): 09/08/20 - 10/08/20 [facility] [address] [place] [id number] Allergies, Adverse Reactions, Alerts Substance Reaction [...] 08/18/20 11:04:00 EDT, Route to Pharmacy Electronically, [facility]/pharmacy #1234 Tablet, new script for dose and instructions., 181, cm, ... Start Date: 08/18/20 Status: OrderedMetamucil 3.4 gm/5.2 gm oral powder for reconstitution = 1.7 Gm, By Mouth, 3 times a day, PRN as needed for constipation, # 1,042 Gm, 1 Refills, Maintenance, 08/07/20 10:18:00 EST, REC Powder, [facility]/pharmacy #1234, Partial fill upon patient request [...] mL, 0 Refills, Maintenance, 08/07/20 10:44:00 EST, [facility]/pharmacy #1234, Partial fill upon patient request if the prescription is for a scheduleII opioid drug., Please follow instruction sheet,... Start Date: 08/07/20 Status: Orderednystatin topical 506727 u/gm powder 1 application, Topically, 2 times a day, PRN Rash, apply to left upper thigh area, keep open to air as much as possible, # 60 Gm, 1 Refills, Maintenance, 07/05/20 10:23:00 EST, Powder, [facility]/pharmacy #1234, 1 application Topically 2 times a day,PRN:Rash... Start Date: 07/05/20 Status: OrderedoxyCODONE 5 mg oral tablet 5 mg, 1, tablet, By Mouth, Every 6 hours, PRN, Continue to decrease use as tolerated, # 42 tablet, Refills 0, Tot. Refills 0, Maintenance, Pain , Moderate, 07/28/19 11:56:00 EST, Route to Pharmacy Electronically, [facility]/pharmacy #1234, 178.2, cm, 2... Start Date: 07/28/19 Status: OrderedPEG-3350 with Electrolytes (Eqv-NuLYTELY) oral powder for reconstitution See Instructions, as directed, # 1 each, 0 Refills, Maintenance, 09/18/20 11:07:00 EDT, [facility] #[id number], Ok to sub for any gallon prep, [...] mL, 0 Refills, Maintenance, 11/30/19 10:33:00 EDT, [facility]/pharmacy #1234, two pre-mixed 450mL Bottles; take [...]
--- OUTSIDE RECORDS SUMMARY | 2022-04-13 13:37 | XMS_ITS | Continuity of Care Document ---
:1960 Author Organization [facility] Address [address] [place] [address]- Care Team Providers Name Role Phone Harini Longoria MD Primary Care Physician [place] [facility] [place]s): 08/07/20 - 09/06/20 [facility] [address] [place] [id number] Attending Physician: Admtr, Ar8 Admitting Physician: Admtr, Ar8 Referring Physician: Admtr, Ar8 Allergies, Adverse Reactions, Alerts Substance Reaction Severity [...] Refills, Maintenance, 01/26/20 9:39:00 EDT, CR Capsule, [facility]/pharmacy #1234, 181, cm, 01/26/20 9:09:00 EDT, Height, [...] 08/18/20 11:04:00 EDT, Route to Pharmacy Electronically, [facility]/pharmacy #1234 Tablet, new script for dose and instructions., 181, cm, ... Start Date: 08/18/20 Status: OrderedMetamucil 3.4 gm/5.2 gm oral powder for reconstitution = 1.7 Gm, By Mouth, 3 times a day, PRN as needed for constipation, # 1,042 Gm, 1 Refills, Maintenance, 08/07/20 10:18:00 EST, REC Powder, [facility]/pharmacy #1234, Partial fill upon patient request if [...] mL, 0 Refills, Maintenance, 08/07/20 10:44:00 EST, [facility]/pharmacy #1234, Partial fill upon patient request if the prescription is for a scheduleII opioid drug., Please follow instruction sheet,... Start Date: 08/07/20 Status: Orderednystatin topical 715389 u/gm powder 1 application, Topically, 2 times a day, PRN Rash, apply to left upper thigh area, keep open to air as much as possible, # 60 Gm, 1 Refills, Maintenance, 07/05/20 10:23:00 EST, Powder, [facility]/pharmacy #1234, 1 application Topically 2 times a day,PRN:Rash... Start Date: 07/05/20 Status: OrderedoxyCODONE 5 mg oral tablet 5 mg, 1, tablet, By Mouth, Every 6 hours, PRN, Continue to decrease use as tolerated, # 42 tablet, Refills 0, Tot. Refills 0, Maintenance, Pain , Moderate, 07/28/19 11:56:00 EST, [facility] 178.2, cm, ... Start Date: 07/28/19 [...] mL, 0 Refills, Maintenance, 11/30/19 10:33:00 EDT, [facility]/pharmacy #1234, two pre-mixed 450mL Bottles; take as [...]
--- OUTSIDE RECORDS SUMMARY | 2022-04-13 13:37 | XMS_ITS | Continuity of Care Document ---
:1960 Author Organization [facility] Address [address] [place] [address]- Care Team Providers Name Role Phone Stephen Mota MD Primary Care Physician En[place] [facility] [place](s): 06/12/21 - 10/10/21 [facility] [address] [place] [address]- Attending Physician: Jessica Ulloa MD Admitting Physician: Jessica Ulloa MD Referring Physician: Stephen Mota MD Allergies, [...] 05/07/21 13:10:00 EST, Route to Pharmacy Electronically, [facility]/pharmacy #1234, Partial fill upon patient request if [...] a day, PRN, # 100 tablet, Refills 2, Tot. Refills 2, Maintenance, for loose stool, 09/13/21 10:35:00 EDT, Route to Pharmacy Electronically, [facility] #[id number] Tablet, new script for dose and instructions., 180, cm... Start Date: 09/13/21 Status: OrderedMetamucil 3.4 gm/5.2 gm oral powder for reconstitution = 1.7 Gm, By Mouth, 3 times a day, PRN as needed for constipation, # 1,042 Gm, 1 Refills, Maintenance, 08/07/20 10:18:00 EST, REC Powder, [facility]/pharmacy #1234, Partial fill upon patient request if the prescription is for a schedule II opioid drug., 181,... Start Date: 08/07/20 Status: OrderedNitrostat 0.4 mg sublingual tablet 1 tablet = 0.4 mg, Sublingual, Every 5 minutes, 0 Refills, Maintenance, 10/06/18 14:56:14 EDT Start Date: 10/06/18 Status: Orderednystatin topical 920692 u/gm powder 1 application, Topically, 2 times a day, PRN Rash, apply to left upper thigh area, keep open to air as much as possible, # 60 Gm, 1 Refills, Maintenance, 12/07/20 13:52:00 EDT, Powder, [facility]/pharmacy #1234, 1 application Topically 2 times a [...] 4 Refills, Maintenance, 08/09/21 12:09:00 EST, Tablet, [facility], Partial fill upon patient [...]
--- OUTSIDE RECORDS SUMMARY | 2022-04-13 13:37 | XMS_ITS | Continuity of Care Document ---
:1960 Author Organization [facility] Address [address] [place] [address]- Care Team Providers Name Role Phone Svetlana DE LA TORRE, Stephen Ross Primary Care Physician [place] [facility] [place](s): 02/12/22 - 03/14/22 [facility] [address] [place] [address]- Allergies, Adverse Reactions, Alerts No Known Allergies [...] 05/07/21 13:10:00 EST, Route to Pharmacy Electronically, [facility]/pharmacy #[id number], Partial fill upon patient request if the [...] 10/16/21 14:08:00 EDT, Route to Pharmacy Electronically, [facility] #[id number] Tablet, new script for dose and instructions., 180, cm... Start Date: 10/16/21 Status: OrderedMetamucil 3.4 gm/5.2 gm oral powder for reconstitution = 1.7 Gm, By Mouth, 3 times a day, PRN as needed for constipation, # 1,042 Gm, 1 Refills, Maintenance, 08/07/20 10:18:00 EST, REC Powder, [facility]/pharmacy #1234, Partial fill upon patient request if the prescription is for a schedule II opioid drug., 181,... Start Date: 08/07/20 Status: OrderedNitrostat 0.4 mg sublingual tablet 1 tablet = 0.4 mg, Sublingual, Every 5 minutes, 0 Refills, Maintenance, 10/06/18 14:56:14 EDT Start Date: 10/06/18 Status: Orderednystatin topical 697525 u/gm powder 1 application, Topically, 2 times a day, PRN Rash, apply to left upper thigh area, keep open to air as much as possible, # 60 Gm, 1 Refills, Maintenance, 12/07/20 13:52:00 EDT, Powder, [facility]/pharmacy #1234, 1 application Topically 2 [...] mL, 0 Refills, Maintenance, 10/15/21 10:51:00 EDT, [facility] #[id number], Partial fill upon patient request if the [...] 4 Refills, Maintenance, 08/09/21 12:09:00 EST, Tablet, [facility], Partial fill upon patient request if [...] Effective Dates Status Health Stat us Informant Rectal cancer Confirmed Active Social History Social History Type Response Smoking Status Never (less than 100 in life time) entered on: 10/21/19 Sex Male Patient Care team information PersonnelName: Svetlana DE LA TORRE, Stephen Ross Address: Address: [address] [place] [id number]
--- OUTSIDE RECORDS SUMMARY | 2022-04-13 13:37 | XMS_ITS | Continuity of Care Document ---
:1960 Author Organization [facility] Address [address] [place] [address]- Care Team Providers Name Role Phone Stephen Mota MD Primary Care Physician En[place] [facility] [place] Date(s): 03/13/21 - 06/06/21 [facility] [address] [place], [place] [id number]- Attending Physician: Bruce Canas MD Admitting Physician: Bruce Canas MD Referring Physician: Stephen Mota MD Allergies, Adverse Reactions, Alerts Substance Reaction [...] 05/07/21 13:10:00 EST, Route to Pharmacy Electronically, [facility]/pharmacy #1234, Partial fill upon patient request if [...] 12/29/20 9:26:00 EDT, Route to Pharmacy Electronically, [facility]/pharmacy #1234 Tablet, new script for dose and instructions., 180, cm, 10/16/20... Start Date: 12/29/20 Status: OrderedMetamucil 3.4 gm/5.2 gm oral powder for reconstitution = 1.7 Gm, By Mouth, 3 times a day, PRN as needed for constipation, # 1,042 Gm, 1 Refills, Maintenance, 08/07/20 10:18:00 EST, REC Powder, [facility]/pharmacy #1234, Partial fill upon patient request if the prescription is for a schedule II opioid drug., 181,... Start Date: 08/07/20 Status: OrderedNitrostat 0.4 mg sublingual tablet 1 tablet = 0.4 mg, Sublingual, Every 5 minutes, 0 Refills, Maintenance, 10/06/18 14:56:14 EDT Start Date: 10/06/18 Status: Orderednystatin topical 252602 u/gm powder 1 application, Topically, 2 times a day, PRN Rash, apply to left upper thigh area, keep open to air as much as possible, # 60 Gm, 1 Refills, Maintenance, 12/07/20 13:52:00 EDT, Powder, [facility]acy #1234, 1 application Topically 2 times a day,PRN:Rash... Start Date: 12/07/20 Status: Orderedpravastatin 10 mg oral tablet 1 [...]
--- OUTSIDE RECORDS SUMMARY | 2022-04-13 13:37 | XMS_ITS | Continuity of Care Document ---
:1960 Author Organization [facility] Address [address] [place] [address]- Care Team Providers Name Role Phone Stephen Mota MD Primary Care Physician En[place] [facility] [place] [facility] [place] [id number] Date(s): 05/30/21 - 06/29/21 [facility] [address] [place], [place] [address] Attending Physician: Savi Overton Admitting Physician: AdmSavi keller Referring Physician: Admtr ArFelicitas Allergies, Adverse Reactions, Alerts No Known [...] 05/07/21 13:10:00 EST, Route to Pharmacy Electronically, [facility]/pharmacy #1234, Partial fill upon [...] 12/29/20 9:26:00 EDT, Route to Pharmacy Electronically, [facility]/pharmacy #1234 Tablet, new script for dose and instructions., 180, cm, 10/16/20... Start Date: 12/29/20 Status: OrderedMetamucil 3.4 gm/5.2 gm oral powder for reconstitution = 1.7 Gm, By Mouth, 3 times a day, PRN as needed for constipation, # 1,042 Gm, 1 Refills, Maintenance, 08/07/20 10:18:00 EST, REC Powder, [facility]/pharmacy #1234, Partial fill upon patient request if the prescription is for a schedule II opioid drug., 181,... Start Date: 08/07/20 Status: OrderedNitrostat 0.4 mg sublingual tablet 1 tablet = 0.4 mg, Sublingual, Every 5 minutes, 0 Refills, Maintenance, 10/06/18 14:56:14 EDT Start Date: 10/06/18 Status: Orderednystatin topical 031011 u/gm powder 1 application, Topically, 2 times a day, PRN Rash, apply to left upper thigh area, keep open to air as much as possible, # 60 Gm, 1 Refills, Maintenance, 12/07/20 13:52:00 EDT, Powder, [facility]/pharmacy #1234, 1 application Topically [...]
--- OUTSIDE RECORDS SUMMARY | 2022-04-13 13:37 | XMS_ITS | Continuity of Care Document ---
:[address] [facility] re Address [address] [place] [address]- Care Team Providers Name Role Phone Stephen Mota MD Primary Care Physician En[place] [facility] [place] [facility] [id number] Date(s): 01/17/21 - 02/16/21 [facility] [address] [place], [place] [address] Attending Physician: Admtr, Savi Admitting Physician: Admtr, Ar8 Referring Physician: Admtr, [...] 12/29/20 9:26:00 EDT, Route to Pharmacy Electronically, [facility]/pharmacy [...] EDT Start Date: 10/06/18 Status: Orderednystatin topical 945684 u/gm powder 1 application, Topically, 2 times a day, PRN Rash, apply to left upper thigh area, keep open to air as much as possible, # 60 Gm, 1 Refills, Maintenance, 12/07/20 13:52:00 EDT, Powder, [facility]/pharmacy #1234, 1 application Topically [...]
--- OUTSIDE RECORDS SUMMARY | 2022-04-13 13:37 | XMS_ITS | Continuity of Care Document ---
:1960 Author Organization [facility] Address [address] [place] [address]- Care Team Providers Name Role Phone Harini Longoria MD Primary Care Physician [place] [facility] [place] Date(s): 05/22/20 - 06/21/20 [facility] [address] [place] [id number] Allergies, Adverse Reactions, Alerts Substance [...] a day, PRN, # 100 tablet, Refills 0, Tot. Refills 0, Maintenance, for loose stool, 05/22/20 10:19:00 EST, Route to Pharmacy Electronically, [facility]/pharmacy #1234 Tablet, new script for dose and instructions., 181, cm, ... Start Date: 05/22/20 Status: OrderedNitrostat 0.4 mg sublingual tablet 1 tablet = 0.4 mg, Sublingual, Every 5 minutes, 0 Refills, Maintenance, 10/06/18 14:56:14 EDT Start Date: 10/06/18 Status: Orderednystatin topical 554514 u/gm powder 1 application, Topically, 2 times a day, PRN Rash, apply to left upper thigh area, keep open to air as much as possible, # 60 Gm, 1 Refills, Maintenance, 11/17/19 11:20:00 EDT, Powder, [facility]/pharmacy #1234, 1 application Topically 2 times a day,PRN:Rash... Start Date: 11/17/19 Status: OrderedoxyCODONE 5 mg oral tablet 5 mg, 1, tablet, By Mouth, Every 6 hours, PRN, Continue to decrease use as tolerated, # 42 tablet, Refills 0, Tot. Refills 0, Maintenance, Pain , Moderate, 07/28/19 11:56:00 EST, Route to Pharmacy Electronically, [facility]/pharmacy #1234, 178.2, cm, ... Start Date: 07/28/19 [...] 0 Refills, Maintenance, 11/30/19 10:33:00 EDT, [facility]/pharmacy #1234, two pre-mixed 450mL Bottles; take as [...]
--- OUTSIDE RECORDS SUMMARY | 2022-04-13 13:37 | XMS_ITS | Continuity of Care Document ---
:1960 Author Organization [facility] re Address [address] [place] [address]- Care Team Providers Name Role Phone Stephen Mota MD Primary Care Physician [place] [facility] [place](s): 01/17/21 - 05/03/21 [facility] [address] [place], [place] [address] Discharge Disposition: A-D/C Home Attending Physician: Bassam [...] 12/29/20 9:26:00 EDT, Route to Pharmacy Electronically, [facility]/pharmacy #1234 Tablet, new script for dose and instructions., 180, cm, 10/16/20... Start Date: 12/29/20 Status: OrderedMetamucil 3.4 gm/5.2 gm oral powder for reconstitution = 1.7 Gm, By Mouth, 3 times a day, PRN as needed for constipation, # 1,042 Gm, 1 Refills, Maintenance, 08/07/20 10:18:00 EST, REC Powder, [facility]/pharmacy #1234, Partial fill upon patient request if the prescription is for a schedule II opioid drug., 181,... Start Date: 08/07/20 Status: OrderedNitrostat 0.4 mg sublingual tablet 1 tablet = 0.4 mg, Sublingual, Every 5 minutes, 0 Refills, Maintenance, 10/06/18 14:56:14 EDT Start Date: 10/06/18 Status: Orderednystatin topical 862373 u/gm powder 1 application, Topically, 2 times a day, PRN Rash, apply to left upper thigh area, keep open to air as much as possible, # 60 Gm, 1 Refills, Maintenance, 12/07/20 13:52:00 EDT, Powder, [facility]/pharmacy #1234, 1 application Topically 2 [...]
--- OUTSIDE RECORDS SUMMARY | 2022-04-13 13:37 | XMS_ITS | Continuity of Care Document ---
:1960 Author Organization [facility] Address [address] [place] [address]- Care Team Providers Name Role Phone Svetlana DE LA TORRE, Stephen Ross Primary Care Physician [phone] Encounter [facility] [place] Date(s): 09/13/20 - 10/13/20 [facility] [address] [place], [place] [address] Allergies, Adverse Reactions, Alerts Substance Reaction Severity Status NKA Active Immunizations Given and Recorded Vaccine Date Status Refusal Reason SARS-CoV-2 (COVID-19) mRNA BNT-162b2 vac 08/30/20 Given SARS-CoV-2 (COVID-19) mRNA BNT-162v7 vac 08/09/20 Given tetanus/diphtheria/pertussis, acel(Tdap) 10/21/19 Given [...] 08/18/20 11:04:00 EDT, Route to Pharmacy Electronically, [facility]/pharmacy #1234 Tablet, new script for dose and instructions., 181, cm, ... Start Date: 08/18/20 Status: OrderedMetamucil 3.4 gm/5.2 gm oral powder for reconstitution = 1.7 Gm, By Mouth, 3 times a day, PRN as needed for constipation, # 1,042 Gm, 1 Refills, Maintenance, 08/07/20 10:18:00 EST, REC Powder, [facility]/pharmacy #1234, Partial fill upon patient request if [...] mL, 0 Refills, Maintenance, 08/07/20 10:44:00 EST, [facility]/pharmacy #1234, Partial fill upon patient request if the prescription is for a scheduleII opioid drug., Please follow instruction sheet,... Start Date: 08/07/20 Status: Orderednystatin topical 513349 u/gm powder 1 application, Topically, 2 times a day, PRN Rash, apply to left upper thigh area, keep open to air as much as possible, # 60 Gm, 1 Refills, Maintenance, 07/05/20 10:23:00 EST, Powder, [facility]/pharmacy #1234, 1 application Topically 2 times a day,PRN:Rash... Start Date: 07/05/20 Status: OrderedoxyCODONE 5 mg oral tablet 5 mg, 1, tablet, By Mouth, Every 6 hours, PRN, Continue to decrease use as tolerated, # 42 tablet, Refills 0, Tot. Refills 0, Maintenance, Pain , Moderate, 07/28/19 11:56:00 EST, Route to Pharmacy Electronically, [facility]/pharmacy #1234, 178.2, cm, ... Start Date: 07/28/19 Status: OrderedPEG-3350 with Electrolytes (Eqv-NuLYTELY) oral powder for reconstitution See Instructions, as directed, # 1 each, 0 Refills, Maintenance, 09/18/20 11:07:00 EDT, [facility][id number], Ok to sub for any gallon prep, [...] mL, 0 Refills, Maintenance, 11/30/19 10:33:00 EDT, [facility]/pharmacy #1234, two pre-mixed 450mL Bottles; take as [...]
--- OUTSIDE RECORDS SUMMARY | 2022-04-13 13:37 | XMS_ITS | Continuity of Care Document ---
:1960 Author Organization [facility] Address [address] [place] [address]- Care Team Providers Name Role Phone Svetlana DE LA TORRE, Stephen Ross Primary Care Physician Encounter [facility] [place] Date(s): 10/16/20 - 10/16/[address] [address] Discharge Disposition: A-D/C Home Attending Physician: Mik Gan MD Admitting Physician: Mik Gan MD Referring Physician: Mik Gan MD Allergies, Adverse Reactions, Alerts Substance Reaction [...] Refills, Maintenance, 01/26/20 9:39:00 EDT, CR Capsule, [facility]/pharmacy #1234, 181, cm, 01/26/20 [...] 11:04:00 EDT, Route to Pharmacy Electronically, [facility]/pharmacy #1234 Tablet, new script for dose and instructions., 181, cm, ... Start Date: 08/18/20 Status: OrderedMetamucil 3.4 gm/5.2 gm oral powder for reconstitution = 1.7 Gm, By Mouth, 3 times a day, PRN as needed for constipation, # 1,042 Gm, 1 Refills, Maintenance, 08/07/20 10:18:00 EST, REC Powder, [facility]/pharmacy #1234, Partial fill upon patient [...] 0 Refills, Maintenance, 08/07/20 10:44:00 EST, [facility]/pharmacy #1234, Partial fill upon patient request if the prescription is for a scheduleII opioid drug., Please follow instruction sheet,... Start Date: 08/07/20 Status: Orderednystatin topical 046444 u/gm powder 1 application, Topically, 2 times a day, PRN Rash, apply to left upper thigh area, keep open to air as much as possible, # 60 Gm, 1 Refills, Maintenance, 07/05/20 10:23:00 EST, Powder, [facility]/pharmacy #1234, 1 application Topically 2 times a day,PRN:Rash... Start Date: 07/05/20 Status: OrderedoxyCODONE 5 mg oral tablet 5 mg, 1, tablet, By Mouth, Every 6 hours, PRN, Continue to decrease use as tolerated, # 42 tablet, Refills 0, Tot. Refills 0, Maintenance, Pain , Moderate, 07/28/19 11:56:00 EST, Route to Pharmacy Electronically, [facility]/pharmacy #1234, 178.2, cm, ... Start Date: 07/28/19 Status: OrderedPEG-3350 with Electrolytes (Eqv-NuLYTELY) oral powder for reconstitution See Instructions, as directed, # 1 each, 0 Refills, Maintenance, 09/18/20 11:07:00 EDT, [id number], Ok to sub for any gallon prep, [...] 0 Refills, Maintenance, 11/30/19 10:33:00 EDT, [facility]/pharmacy #1234, two pre-mixed 450mL [...] Status Health Status Informant Rectal cancer(Confirmed) Active Procedures Procedure Date Related Diagnosis Body Site Status Colonoscopy 10/16/20 Completed Vital Signs Most recent to oldest 1 2 3 [Reference Range]: Height 180 cm (10/16/20 11:08 AM) Weight 98 kg (10/16/20 11:08 AM) Oxygen Saturation [94-100 %] 97 % 97 % 100 % (10/16/20 12:04 PM) (10/16/20 11:53 AM) (10/16/20 1:08 AM) Pulse Rate [55-90 bpm] 88 bpm (10/16/20 11:08 AM) Body Mass Index [18.5-24.99] 30.25 *>HHI* (10/16/20 11:08 AM) Blood Pressure [90-138/55-84 130/79 mm Hg 139/87 mm Hg 155 /94 mm Hg mm Hg] (10/16/20 12:04 PM) *H* *H* (10/16/20 11:53 AM) (10/16/20 11:0 8 AM) Respiratory Rate [16-30 18 br/min 18 br/min 18 br/mi n br/min] (10/16/20 12:04 PM) (10/16/20 11:53 AM) (10/16/20 1 1:08 AM) Mode of Delivery (Oxygen) Room air Room air (10/16/20 11:53 AM) (10/16/20 11:08 AM) Blood pressure sites Arm, left Arm, left Arm, left (10/16/20 12:04 PM) (10/16/20 11:53 AM) (10/16/20 1 1:08 AM) Temperature Route Temporal (10/16/20 11:08 AM) Dry Weight 98 kg (10/16/20 11:08 AM) Social History Social History Type Response Smoking Status Never (less than 100 in life time) entered on: 10/21/19 Sex Male
--- OUTSIDE RECORDS SUMMARY | 2022-04-13 13:37 | XMS_ITS | Continuity of Care Document ---
:1960 Author Organization [facility] Address [address] [place] [address]- Care Team Providers Name Role Phone Harini Longoria MD Primary Care Physician [id number] Date(s): 09/29/18 - 09/05/19 [facility] [address] [place] [address]- [facility] Discharge Disposition: A-D/C Home Attending Physician: Bassam Call MD Admitting Physician: Gemma DE LA TORRE, Winston Christensen Referring Physician: Colin Canas MD, I Allergies, Adverse [...] 9:54:55 EDT, Tablet Start Date: 02/02/19 Status: OrderedColace sodium 100 mg oral capsule 100 mg, 1, capsule, By Mouth, 2 times a day, STOOL SOFTENER PLEASE DIRECT PATIENT TO GENERIC OTC IF NOT COVERED., # 60 capsule, Refills 1, Tot. Refills 1, Maintenance, 04/15/19 12:40:50 EST, Route to Pharmacy Electronically, [id number]... Start Date: 04/15/19 Status: OrderedFlonase 50 mcg/inh nasal spray Daily, 0 Refills, Maintenance, 08/17/19 12:54:00 EDT Start Date: 08/17/19 Status: Orderedfurosemide 40 mg oral tablet 1 tablet = 40 mg, By Mouth, Daily, # 60 application, 0 Refills, Maintenance, 02/20/10 8:15:30 EDT, Tablet Start Date: 02/20/10 Status: Orderedgabapentin 600 mg oral tablet 1 tablet = 600 mg, By Mouth, 3 times a day, # 270 tablet, 2 Refills, Maintenance, 06/22/19 12:22:00 EST, Tablet, [facility]/pharmacy #1234, 178.2, cm, 05/20/19 8:32:00 EST, Height, 96.1, kg, 05/20/19 8:32:00 EST, Dry Weight Start Date: 06/22/19 Status: Orderedlevothyroxine 175 mcg (0.175 mg) oral [...] 08/26/19 13:26:00 EDT, Route to Pharmacy Electronically, [facility]/pharmacy #1234 Tablet, 180, cm, 08/17/19 12:26:00 EDT, Height, 101, kg, ... Start Date: 08/26/19 Status: Orderedloperamide 2 mg oral capsule 4 mg, 2, capsule, By Mouth, Every 4 hours, PRN, not to exceed 8 capsules, or 16 mg, in 24 hours, # 60 capsule, Refills 1, Tot. Refills 1, Maintenance, for loose stool, 04/22/19 9:07:34 EST, Route to Pharmacy Electronically, [id number]... Start Date: 04/22/19 Status: Orderedmagnesium citrate 8.85% [...] EDT Start Date: 10/06/18 Status: Orderednystatin topical 145555 u/gm powder 1 application, Topically, 2 times [...] 07/28/19 11:56:00 EST, Route to Pharmacy Electronically, [facility]/pharmacy #[id number], 178.2, cm, ... Start Date: 07/28/19 Status: Orderedprochlorperazine 10 mg oral tablet 1 [...] oldest 1 2 3 [Reference Range]: Height 178.2 cm 178.2 cm 178.2 cm (07/06/19 10:27 AM) (07/01/19 9:34 AM) (05/20/19 8: 32 AM) Weight 97.1 kg 97.7 kg 96.1 kg (07/06/19 10:27 AM) (07/01/19 9:34 AM) (05/20/19 8: 32 AM) Oxygen Saturation [94-100 %] 98 % 100 % 100 % (04/30/19 8:30 AM) (01/18/19 11:37 AM) (01/04/19 10 :35 AM) Pulse Rate [55-90 bpm] 74 bpm 72 bpm 57 bpm (07/06/19 10:27 AM) (07/01/19 9:34 AM) (05/20/19 8: 32 AM) Body Mass Index [18.5-24.99] 30.58 30.77 30. 26 *>HHI* *>HHI* *>HHI* (07/06/19 10:27 AM) (07/01/19 9:34 AM) (05/20/19 8: 32 AM) Blood Pressure [90-138/55-84 132/77 mm Hg 154/82 mm Hg 126 /77 mm Hg mm Hg] (07/06/19 10:27 AM) *H* (05/20/19 8:32 AM) (07/01/19 9:34 AM) Respiratory Rate [16-30 16 br/min 16 br/min 18 br/mi n br/min] (12/28/18 4:33 PM) (12/28/18 1:56 PM) (12/11/18 2:3 0 PM) Temperature [96.8-100.4 98.6 DegF 98.1 DegF 98.1 Deg F DegF] (07/06/19 10:27 AM) (07/01/19 9:34 AM) (05/20/19 8: 32 AM) Mode of Delivery (Oxygen) Room air Room air Room a ir (04/30/19 8:30 AM) (01/18/19 11:37 AM) (01/04/19 10 :35 AM) Blood pressure sites Arm, left Arm, right Arm, right (07/06/19 10:27 AM) (07/01/19 9:34 AM) (05/20/19 8: 32 AM) Temperature Route Temporal Oral Oral (07/06/19 10:27 AM) (07/01/19 9:34 AM) (05/20/19 8: 32 AM) Dry Weight 97.1 kg 97.7 kg 96.1 kg (07/06/19 10:27 AM) (07/01/19 9:34 AM) (05/20/19 8: 32 AM) Weight Obtained Via Standing scale Standing scale Standing sca le (07/06/19 10:27 AM) (07/01/19 9:34 AM) (05/20/19 8: 32 AM) Dry Weight Obtained Via Standing scale Standing scale Standing scale (07/06/19 10:27 AM) (07/01/19 9:34 AM) (05/20/19 8: 32 AM) Social History Social History Type Response Smoking Status Never (less than 100 in life time) entered on: 10/20/18 Sex Male
--- OUTSIDE RECORDS SUMMARY | 2022-04-13 13:37 | XMS_ITS | Continuity of Care Document ---
:1960 Author Organization [facility] Address [address] [place] [address]- Care Team Providers Name Role Phone Stephen Mota MD Primary Care Physician [phone] [place] [facility] [place] 09/10/21 - 10/10/21 [facility] [address] [place] [address]- Attending Physician: Savi Overton Admitting Physician: Savi Overton Referring Physician: Admtr, Arturo8 Allergies, Adverse Reactions, Alerts No Known Allergies [...] 05/07/21 13:10:00 EST, Route to Pharmacy Electronically, [facility]/pharmacy #1234, Partial fill upon patient [...] 09/13/21 10:35:00 EDT, Route to Pharmacy Electronically, [facility] #[id number] Tablet, new script for dose and instructions., 180, cm... Start Date: 09/13/21 Status: OrderedMetamucil 3.4 gm/5.2 gm oral powder for reconstitution = 1.7 Gm, By Mouth, 3 times a day, PRN as needed for constipation, # 1,042 Gm, 1 Refills, Maintenance, 08/07/20 10:18:00 EST, REC Powder, [facility]/pharmacy #1234, Partial fill upon patient request if the prescription is for a schedule II opioid drug., 181,... Start Date: 08/07/20 Status: OrderedNitrostat 0.4 mg sublingual tablet 1 tablet = 0.4 mg, Sublingual, Every 5 minutes, 0 Refills, Maintenance, 10/06/18 14:56:14 EDT Start Date: 10/06/18 Status: Orderednystatin topical 248094 u/gm powder 1 application, Topically, 2 times a day, PRN Rash, apply to left upper thigh area, keep open to air as much as possible, # 60 Gm, 1 Refills, Maintenance, 12/07/20 13:52:00 EDT, Powder, [facility]/pharmacy #1234, 1 application Topically 2 [...] Refills, Maintenance, 08/09/21 12:09:00 EST, Tablet, [facility], Partial fill upon patient [...]
--- OUTSIDE RECORDS SUMMARY | 2022-04-13 13:38 | XMS_ITS | Continuity of Care Document ---
:1960 Author Organization [facility] Address [address] [place] [address]- Care Team Providers Name Role Phone Harini Longorai MD Primary Care Physician En[place] [facility] [place] Date(s): 07/14/19 - 09/18/[address] [address]- [facility] Attending Physician: Colin Canas MD, I Referring Physician: Colin Canas MD, I Allergies, [...] 08/26/19 13:26:00 EDT, Route to Pharmacy Electronically, [facility]/pharmacy #1234 Tablet, 180, cm, 08/17/19 12:26:00 EDT, Height, 101, kg, ... Start Date: 08/26/19 Status: OrderedNitrostat 0.4 mg sublingual tablet 1 tablet = 0.4 mg, Sublingual, Every 5 minutes, 0 Refills, Maintenance, 10/06/18 14:56:14 EDT Start Date: 10/06/18 Status: Orderednystatin topical 621498 u/gm powder 1 application, Topically, 2 times [...] 07/28/19 11:56:00 EST, Route to Pharmacy Electronically, [facility]/pharmacy #1234, 178.2, cm, ... Start Date: [...] oldest [Reference Range]: 1 Height 180 cm (08/17/19 12:26 PM) Weight 101 kg (08/17/19 12:26 PM) Body Mass Index [18.5-24.99] 31.17 *>HHI* (08/17/19 12:26 PM) Dry Weight 101 kg (08/17/19 12:26 PM) Dry Weight Obtained Via Patient/family stated (08/17/19 12:26 PM) Social History Social History Type Response Smoking Status Never (less than 100 in life time) entered on: 10/20/18 Sex Male
--- OUTSIDE RECORDS SUMMARY | 2022-04-13 13:38 | XMS_ITS | Continuity of Care Document ---
:1960 Author Organization [facility] re Address [address] [place] [address]- Care Team Providers Name Role Phone Stephen Mota MD Primary Care Physician [place] [facility] [place](s): 07/19/20 - 12/14/20 [facility] [address] [place] [address]- Discharge Disposition: A-D/C Home Attending Physician: Bassam [...] Refills, Maintenance, 01/26/20 9:39:00 EDT, CR Capsule, [facility]/pharmacy #1234, 181, cm, 01/26/20 9:09:00 EDT, Height, [...] Tot. Refills 2, Maintenance, for loose stool, 12/05/20 9:09:00 EDT, Route to Pharmacy Electronically, [facility]/pharmacy #1234 Tablet, new script for dose and instructions., 180, cm, 10/16/20... Start Date: 12/05/20 Status: OrderedMetamucil 3.4 gm/5.2 gm oral powder for reconstitution = 1.7 Gm, By Mouth, 3 times a day, PRN as needed for constipation, # 1,042 Gm, 1 Refills, Maintenance, 08/07/20 10:18:00 EST, REC Powder, [facility]/pharmacy #1234, Partial fill upon [...] mL, 0 Refills, Maintenance, 08/07/20 10:44:00 EST, [facility]/pharmacy #1234, Partial fill upon patient request if the prescription is for a scheduleII opioid drug., Please follow instruction sheet,... Start Date: 08/07/20 Status: Orderednystatin topical 170605 u/gm powder 1 application, Topically, 2 times a day, PRN Rash, apply to left upper thigh area, keep open to air as much as possible, # 60 Gm, 1 Refills, Maintenance, 12/07/20 13:52:00 EDT, Powder, [facility]/pharmacy #1234, 1 application Topically 2 times a day,PRN:Rash... Start Date: 12/07/20 Status: OrderedoxyCODONE 5 mg oral tablet 5 mg, 1, tablet, By Mouth, Every 6 hours, PRN, Continue to decrease use as tolerated, # 42 tablet, Refills 0, Tot. Refills 0, Maintenance, Pain , Moderate, 07/28/19 11:56:00 EST, Route to Pharmacy Electronically, [facility]/pharmacy #1234, 178.2, cm, ... Start Date: 07/28/19 Status: OrderedPEG-3350 with Electrolytes (Eqv-NuLYTELY) oral powder for reconstitution See Instructions, as directed, # 1 each, 0 Refills, Maintenance, 09/18/20 11:07:00 EDT, [facility] #[id number], Ok to sub for any gallon prep, [...] directed, # 900 mL, 0 Refills, Maintenance, 11/20/20 12:19:00 EDT, [facility]/pharmacy #1234, two pre-mixed 450mL Bottles; take as directed, 180, cm, 10/16/20 11:08:00 EDT, Height, 98, kg, 10/16/20 11:08... Start Date: 11/20/20 Status: Orderedsenna - oral tablet 2 tablet, [...] Maintenance, 10/06/18 14:55:42 EDT, Aerosol Start Date: 5/7/19 Status: Ordered Problem List Condition Effective Dates Status Health Status Informant Rectal cancer(Confirmed) Active Vital Signs Most recent to oldest [Reference Range]: 1 Height 181 cm (08/15/20 8:41 AM) Weight 103.0 kg (08/15/20 8:41 AM) Pulse Rate [55-90 bpm] 70 bpm (08/15/20 8:41 AM) Body Mass Index [18.5-24.99] 31.44 *>HHI* (08/15/20 8:41 AM) Blood Pressure [90-138/55-84 mm Hg] 152/82 mm Hg *H* (08/15/20 8:41 AM) Temperature [96.8-100.4 DegF] 98.2 DegF (08/15/20 8:41 AM) Blood pressure sites Arm, left (08/15/20 8:41 AM) Temperature Route Temporal (08/15/20 8:41 AM) Dry Weight 103.0 kg (08/15/20 8:41 AM) Weight Obtained Via Standing scale (08/15/20 8:41 AM) Dry Weight Obtained Via Standing scale (08/15/20 8:41 AM) Social History Social History Type Response Smoking Status Never (less than 100 in life time) entered on: 10/21/19 Sex Male
--- OUTSIDE RECORDS SUMMARY | 2022-04-13 13:38 | XMS_ITS ---
:1960 Author Care Team Providers Name Role Phone CANELO HARTMAN MD Primary Care Provider [phone] Allergies Code Code System Name Reaction Severity Status Onset NKDA ? Medications Name Status Start Date Stop Date ? ? albuterol sulfate Active ? Not available diphenoxylate-atropine 2.5 mg-0.025 mg tablet Active ? Not available TAKE 2 TABLETS BY MOUTH FOUR TIMES DAILY NEEDED FOR [facility] fluoxetine 60 mg tablet Active ? Not avai lable Take 1 tablet every day by oral route. furosemide 20 mg tablet Active ? Not avai lable TAKE 1 TO 3 TABLETS BY MOUTH ONCE DAILY NEEDED levothyroxine Active ? Not available lisinopril 20 mg tablet Active ? Not avai lable TAKE 1 TABLET BY MOUTH EVERY DAY Nitrostat Active ? Not available oxybutynin Active ? Not available oxybutynin chloride 5 mg tablet Active ? Not available TAKE 1 TABLET BY MOUTH EVERY DAY IN THE EVENING pravastatin 10 mg tablet Active ? Not janak ilable Take 1 tablet every day by oral route. Readi-Cat 2 2 % (w/v) oral suspension Active ? Not available TAKE DIRECTED spironolactone 25 mg tablet Active ? Not available Take 1 tablet every day by oral route. torsemide 20 mg tablet Active ? Not avail able TAKE 2 TABLETS BY MOUTH TWICE DAILY trazodone 100 mg tablet Active ? Not avai lable Take 1 tablet twice a day by oral route. Problems None recorded. Procedures Date Name Performed by ? 06/18/2021 XR, Chest, 2 View [facility] [address] [place] [address] (Work Place) Results Lab Results Date Name Specimen Result Interpretation Description Value Range Status Address ? 06/18/2021 SARS CoV 2 RNA ? Result negative ? ? 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 Social History None recorded. Vaccine List None recorded. Plan of Care Reminders Provider Appointments None recorded. ? ? Lab None recorded. ? ? Referral None recorded. ? ? Procedures None recorded. ? ? Surgeries None recorded. ? ? Imaging None recorded. ? ? Vitals Blood Pressure 153/106 mm[Hg]
--- OUTSIDE RECORDS SUMMARY | 2022-04-13 13:38 | XMS_ITS | Continuity of Care Document ---
:1960 Author Organization [facility] Address [address] [place] [address]- Care Team Providers Name Role Phone Stephen Mota MD Primary Care Physician [phone] Encounter [facility] [place] Date(s): 06/25/21 - 07/25/21 [facility] [address] [place] [address]- Allergies, Adverse Reactions, Alerts No Known Allergies [...] 05/07/21 13:10:00 EST, Route to Pharmacy Electronically, [facility]/pharmacy #1234, Partial fill upon patient [...] 12/29/20 9:26:00 EDT, Route to Pharmacy Electronically, [facility]/pharmacy #1234 Tablet, new script for dose and instructions., 180, cm, 10/16/20... Start Date: 12/29/20 Status: OrderedMetamucil 3.4 gm/5.2 gm oral powder for reconstitution = 1.7 Gm, By Mouth, 3 times a day, PRN as needed for constipation, # 1,042 Gm, 1 Refills, Maintenance, 08/07/20 10:18:00 EST, REC Powder, [facility]/pharmacy #1234, Partial fill upon patient request if the prescription is for a schedule II opioid drug., 181,... Start Date: 08/07/20 Status: OrderedNitrostat 0.4 mg sublingual tablet 1 tablet = 0.4 mg, Sublingual, Every 5 minutes, 0 Refills, Maintenance, 10/06/18 14:56:14 EDT Start Date: 10/06/18 Status: Orderednystatin topical 275810 u/gm powder 1 application, Topically, 2 times a day, PRN Rash, apply to left upper thigh area, keep open to air as much as possible, # 60 Gm, 1 Refills, Maintenance, 12/07/20 13:52:00 EDT, Powder, [facility]/pharmacy #1234, 1 application Topically 2 [...]
--- OUTSIDE RECORDS SUMMARY | 2022-04-13 13:38 | XMS_ITS | Continuity of Care Document ---
:1960 Author Organization [facility] Address [address] [place] [address]- Care Team Providers Name Role Phone Svetlana DE LA TORRE, Stephen Ross Primary Care Physician [phone] Encounter [facility] [place] Date(s): 01/25/21 - 01/25/[address] [address] Discharge Disposition: A-D/C Home Attending Physician: Juancarlos Kern MD Admitting Physician: Juancarlos Kern MD Referring Physician: Juancarlos Kern MD Allergies, Adverse Reactions, Alerts Substance Reaction [...] 12/29/20 9:26:00 EDT, Route to Pharmacy Electronically, [facility]/pharmacy #1234 Tablet, new script for dose and instructions., 180, cm, 10/16/20... Start Date: 12/29/20 Status: OrderedMetamucil 3.4 gm/5.2 gm oral powder for reconstitution = 1.7 Gm, By Mouth, 3 times a day, PRN as needed for constipation, # 1,042 Gm, 1 Refills, Maintenance, 08/07/20 10:18:00 EST, REC Powder, [facility]/pharmacy #1234, Partial fill upon patient request if the prescription is for a schedule II opioid drug., 181,... Start Date: 08/07/20 Status: OrderedNitrostat 0.4 mg sublingual tablet 1 tablet = 0.4 mg, Sublingual, Every 5 minutes, 0 Refills, Maintenance, 10/06/18 14:56:14 EDT Start Date: 10/06/18 Status: Orderednystatin topical 610918 u/gm powder 1 application, Topically, 2 times a day, PRN Rash, apply to left upper thigh area, keep open to air as much as possible, # 60 Gm, 1 Refills, Maintenance, 12/07/20 13:52:00 EDT, Powder, [facility]/pharmacy #1234, 1 application Topically 2 [...] oldest 1 2 3 [Reference Range]: Height 181 cm (01/25/21 9:00 AM) Weight 94 kg (01/25/21 9:00 AM) Oxygen Saturation [94-100 %] 97 % 100 % 98 % (01/25/21 5:53 PM) (01/25/21 5:30 PM) (01/25/21 5:1 2 PM) Blood Pressure [90-138/55-84 mm 145/90 mm Hg 149/78 mm Hg 183/110 mm Hg Hg] *H* *H* *H* (01/25/21 5:30 PM) (01/25/21 5:12 PM) (01/25/21 5:0 0 PM) Respiratory Rate [16-30 br/min] 15 br/min 19 br/min 14 br/min *L* (01/25/21 5:30 PM) *L* (01/25/21 5:53 PM) (01/25/21 5:12 PM) Mode of Delivery (Oxygen) Room air Room air Room a ir (01/25/21 5:30 PM) (01/25/21 5:00 PM) (01/25/21 4:3 0 PM) Blood pressure sites Arm, left Arm, left Arm, left (01/25/21 5:30 PM) (01/25/21 5:00 PM) (01/25/21 4:1 5 PM) Dry Weight 94 kg (01/25/21 9:00 AM) Social History Social History Type Response Smoking Status Never (less than 100 in life time) entered on: 10/21/19 Sex Male
--- OUTSIDE RECORDS SUMMARY | 2022-04-13 13:38 | XMS_ITS | Continuity of Care Document ---
:1960 Author Organization [facility] Address [address] [place] [address]- Care Team Providers Name Role Phone Stephen Mota MD Primary Care Physician [phone] Encounter [facility] [place] Date(s): 08/07/21 - 09/06/21 [facility] [address] [place] [address]- Allergies, Adverse Reactions, Alerts No Known Allergies [...] 05/07/21 13:10:00 EST, Route to Pharmacy Electronically, [facility]/pharmacy #1234, Partial fill upon patient request [...] 12/29/20 9:26:00 EDT, Route to Pharmacy Electronically, [facility]/pharmacy #1234 Tablet, new script for dose and instructions., 180, cm, 10/16/20... Start Date: 12/29/20 Status: OrderedMetamucil 3.4 gm/5.2 gm oral powder for reconstitution = 1.7 Gm, By Mouth, 3 times a day, PRN as needed for constipation, # 1,042 Gm, 1 Refills, Maintenance, 08/07/20 10:18:00 EST, REC Powder, [facility]/pharmacy #1234, Partial fill upon patient request if the prescription is for a schedule II opioid drug., 181,... Start Date: 08/07/20 Status: OrderedNitrostat 0.4 mg sublingual tablet 1 tablet = 0.4 mg, Sublingual, Every 5 minutes, 0 Refills, Maintenance, 10/06/18 14:56:14 EDT Start Date: 10/06/18 Status: Orderednystatin topical 159356 u/gm powder 1 application, Topically, 2 times a day, PRN Rash, apply to left upper thigh area, keep open to air as much as possible, # 60 Gm, 1 Refills, Maintenance, 12/07/20 13:52:00 EDT, Powder, [facility]/pharmacy #1234, 1 application Topically 2 [...] 4 Refills, Maintenance, 08/09/21 12:09:00 EST, Tablet, [facility], Partial fill upon patient request if [...]
--- OUTSIDE RECORDS SUMMARY | 2022-04-13 13:38 | XMS_ITS | Continuity of Care Document ---
:1960 Author Organization [employer] Address [address] [place] [id number]- Care Team Providers Name Role Phone Harini Longoria MD Primary Care Physician [place] [facility] [place]/[address] [address]- [facility] Discharge Disposition: A-Transfer VNA/Home Health Attending Physician: Colin Canas MD, I Admitting Physician: Colin Canas MD, I Referring Physician: [...] 9:54:55 EDT, Tablet Start Date: 02/02/19 Status: Orderedbacitracin topical 500 u/gm ointment 1 applicator, Topically, Daily, for 14 days, # 30 Gm, 0 Refills, Acute 10/13/19 9:02:00 EDT, 09/29/19 9:02:00 EDT, Ointment Start Date: 09/29/19 Stop Date: 10/13/19 Status: Orderedcarvedilol 3.125 mg oral tablet 3.125 mg, 1, tablet, By Mouth, 2 times a day, Refills 0, Maintenance, 09/13/19 16:04:00 EDT Start Date: 09/13/19 Status: Ordereddiazepam 5 mg oral tablet 5 mg, 1, tablet, By Mouth, Every 8 hours, PRN, for 5 days, # 15 tablet, Refills 0, Tot. Refills 0, Acute 10/04/19 9:03:00 EDT, Spasm, 09/29/19 9:03:00 EDT, Print Requisition Start Date: 09/29/19 Stop Date: 10/04/19 Status: Ordereddocusate sodium 100 mg oral tablet = 100 mg, By Mouth, 2 times a day, # 30 tablet, 0 Refills, Maintenance, 09/29/19 9:03:00 EDT, Tablet Start Date: 09/29/19 Stop Date: 10/13/19 Status: OrderedFlonase 50 mcg/inh nasal spray Daily, [...] 08/26/19 13:26:00 EDT, Route to Pharmacy Electronically, [facility]/pharmacy #[id number] Tablet, 180, cm, 08/17/19 12:26:00 EDT, Height, 101, kg, ... Start Date: 08/26/19 Status: OrderedNitrostat 0.4 mg sublingual tablet 1 tablet = 0.4 mg, Sublingual, Every 5 minutes, 0 Refills, Maintenance, 10/06/18 14:56:14 EDT Start Date: 10/06/18 Status: Orderednystatin topical 892700 u/gm powder 1 application, Topically, 2 times [...] 07/28/19 11:56:00 EST, Route to Pharmacy Electronically, [facility]/pharmacy #[id number], 178.2, cm, ... Start [...] Procedure Date Related Diagnosis Body Site Status Laparoscopic APR - Abdominoperineal Completed resection Results Radiology Reports Exam Date Time Procedure Performing Provider Status 09/28/19 10:43 AM Chest Portable Yolande Zhao; Jeremias (Verif ied) Notes:(Chest Portable) Reason For Exam: Shortness of BreathRESULT: Chest Portable Chest Portable AP upright Reason: Shortness of Breath; Clinical Question(s): Pleural Effusion COMPARISON: 09/23/2019. FINDINGS: LINES AND TUBES: Again demonstrated is a left Port-A-Cath with its tip in the expected location of the right age atrium. LUNGS AND PLEURA: Clear lungs. Normal pulmonary vascularity. No pleural effusion. No pneumothorax. HEART, MEDIASTINUM AND DANYEL: Heart is normal in size. Normal mediastinal and hilar contour. BONES AND SOFT TISSUES: No acute abnormality. IMPRESSION: No acute abnormality. WSN: [id number] Ordering Physician: Benito Andres Dictated By: Carolina Ramachandran MD Dictated Date/Time: 09/28/19 10:48 a Reviewed By: Carolina Ramachandran MD Signed By: Carolina Ramachandran MD Signed Date/Time: 09/28/19 10:48 am Transcribed By: DARLINE Transcribed Date/Time: 09/28/19 10:46 am Exam Date Time Procedure Performing Provider Status 09/23/19 7:43 PM Chest Portable Randy Ortiz (Verroseannie d) Notes:(Chest Portable) Reason For Exam: NG Tube placement;Other:RESULT: Chest Portable Chest Portable Reason: NG Tube placement; Clinical Question(s): NG tube placement COMPARISON: Earlier the same day FINDINGS: LINES AND TUBES: Interval placement of a nasogastric tube in good position. Left-sided Port-A-Cath in good position. LUNGS AND PLEURA: No consolidation or overt pulmonary edema. No pleural effusion. No pneumothorax. HEART, MEDIASTINUM AND DANYEL: Heart is normal in size. Normal mediastinal and hilar contour. BONES AND SOFT TISSUES: No acute abnormality. IMPRESSION: NG tube in good position. WSN: [id number] Ordering Physician: Joelle Shay Dictated By: Neto Reyes MD Dictated Date/Time: 09/23/19 7:55 pm Reviewed By: Neto Reyes MD Signed By: Neto Reyes MD Signed Date/Time: 09/23/19 7:55 pm Transcribed By: DARLINE Transcribed Date/Time: 09/23/19 7:54 pm Exam Date Time Procedure Performing Provider Status 09/23/19 6:01 AM Abdomen AP Norm Valencia; Jeremias (Verified) Notes:(Abdomen AP) Reason For Exam: Nausea/VomitingRESULT: XR Abdomen AP XR Abdomen AP Reason: Nausea Vomiting; Clinical Question(s): Obstruction COMPARISON: September 19. FINDINGS: There are several dilated small bowel loops, new since prior study. Gas and stool still present throughout colon, thus differential includes ileus and/or early obstruction. Prominent gas throughout the stomach. Curvilinear foreign body seen in superior aspect of the lower pelvis, possibly drain or tube which has been left in place, similar to prior study although has a different configuration today. IMPRESSION: Several dilated small bowel loops, pattern consistent with ileus and/or early obstruction. Prominent gas throughout the stomach. Tubular, or drain-shaped, foreign body lower pelvis. WSN: [id number] Ordering Physician: Joelle Shay Dictated By: Yoel Munoz MD Dictated Date/Time: 09/23/19 8:23 am Reviewed By: Yoel Munoz MD Signed By: Yoel Munoz MD Signed Date/Time: 09/23/19 8:23 am Transcribed By: DARLINE Transcribed Date/Time: 09/23/19 8:18 am Exam Date Time Procedure Performing Provider Status 09/23/19 8:01 AM Chest Portable Lana Hall; Jeremias (Maame aponte) Notes:(Chest Portable) Reason For Exam: Tube PlacementRESULT: Chest Portable Chest Portable Reason: Tube Placement; Clinical Question(s): Tube Placement COMPARISON: October,. FINDINGS: Central line tip in region of IVC/right atrial junction. No pneumothorax seen although I note that no film with the breath held in expiration has been obtained. New areas of linear atelectasis, and/or scarring, one in left midlung region and at right base. Probable/possible small area of infiltrate around inferior aspect right hilum. CP angles sharp. Heart appears enlarged, some of this is due to AP portable technique used vascularity normal. IMPRESSION: Central line tip in region of IVC/right atrial junction. New areas of linear atelectasis, and/or scarring bilaterally. Possible/probable small infiltrate around inferior aspect right hilum. Possible cardiomegaly. WSN: [id number] Ordering Physician: Clemente Henao Dictated By: Yoel Munoz MD Dictated Date/Time: 09/23/19 8:11 am Reviewed By: Yoel Munoz MD Signed By: Yoel Munoz MD Signed Date/Time: 09/23/19 8:11 am Transcribed By: DARLINE Transcribed Date/Time: 09/23/19 8:06 am Exam Date Time Procedure Performing Provider Status 09/20/19 12:28 PM Abdomen AP Belén Waller; Jeremias (Verified) Notes:(Abdomen AP) Reason For Exam: incorrect needle countRESULT: XR Abdomen AP XR Abdomen AP Indication: incorrect needle count; COMPARISON: 04/16/2019 FINDINGS: Inferior most aspect of the pelvis was not included in the field of view. There is no unexpected radiopaque foreign body to suggest a retained needle. There is a surgical drain in the midline pelvis and a tubing projecting over the right hemipelvis. Left lower quadrant colostomy in place. There is a partially imaged central venous catheter with its tip in the region of the lower SVC. Tip of the enteric tube is likely in the stomach; however, the sidehole is above the levelof the GE junction. No evidence of bowel obstruction. Clear lung bases. No evidence of acute osseous abnormality. IMPRESSION: 1. No evidence of a retained radiopaque foreign body. 2. The sidehole of the enteric tube is above the level of the GE junction. Per conversation with thetechnologist via telephone, the enteric tube has already been removed. Findings were communicated with the technologist to be relayed to Dr. Bravo Canas in the OR. WSN: [id number] Ordering Physician: Colin Canas I Dictated By: Jia Tovar MD Dictated Date/Time: 09/20/19 12:36 p Reviewed By: Jia Tovar MD Signed By: Jia Tovar MD Signed Date/Time: 09/20/19 12:36 pm Transcribed By: DARLINE Transcribed Date/Time: 09/20/19 12:30 pm Vital Signs Most recent to oldest 1 2 3 [Reference Range]: Height 180.34 cm 180.34 cm 180.34 cm (09/29/19 7:45 AM) (09/29/19 4:44 AM) (09/28/19 11: 59 PM) Weight 89.7 kg 100.4 kg 97.0 kg (09/29/19 4:43 AM) (09/28/19 9:05 AM) (09/27/19 3:3 1 AM) Oxygen Saturation [94-100 98 % 100 % 98 % %] (09/29/19 7:45 AM) (09/29/19 4:44 AM) (09/28/19 11: 59 PM) Pulse Rate [55-90 bpm] 68 bpm 68 bpm 75 bpm (09/29/19 9:42 AM) (09/29/19 7:45 AM) (09/29/19 4:4 4 AM) Body Mass Index 32.44 30.93 30.61 [18.5-24.99] *>HHI* *>HHI* *>HHI* (09/20/19 4:13 PM) (09/20/19 6:46 AM) (09/13/19 3:5 2 PM) Blood Pressure 128/80 mm Hg 128/80 mm Hg 128/80 mm Hg [90-138/55-84 mm Hg] (09/29/19 9:42 AM) (09/29/19 9:42 AM) ( 0 7:45 AM) Respiratory Rate [16-30 18 br/min 18 br/min 18 br/mi n br/min] (09/29/19 7:45 AM) (09/29/19 4:44 AM) (09/28/19 11: 59 PM) Temperature [96.8-100.4 98.0 DegF 98.4 DegF 99.6 Deg F DegF] (09/29/19 7:45 AM) (09/29/19 4:44 AM) (09/28/19 11: 59 PM) Liters per Minute 2 L/min 2 L/min 2 L/min (09/25/19 10:55 PM) (09/24/19 11:54 AM) (09/23/19 1 1:25 PM) Mode of Delivery (Oxygen) Room air Room air Room a ir (09/29/19 7:45 AM) (09/29/19 4:44 AM) (09/28/19 11: 59 PM) Blood pressure sites Arm, left Arm, left Arm, left (09/29/19 7:45 AM) (09/29/19 4:44 AM) (09/28/19 11: 59 PM) Temperature Route Oral Oral Oral (09/29/19 7:45 AM) (09/29/19 4:44 AM) (09/28/19 11: 59 PM) Dry Weight 105.5 kg 100.6 kg 99.55 kg (09/20/19 4:13 PM) (09/20/19 6:46 AM) (09/13/19 3:5 2 PM) Weight Obtained Via Bed scale Bed scale Bed scale (09/28/19 9:05 AM) (09/27/19 3:31 AM) (09/25/19 3:3 8 AM) Dry Weight Obtained Via Standing scale Patient/family stated (09/20/19 6:46 AM) (09/13/19 3:52 PM) Social History Social History Type Response Smoking Status Never (less than 100 in life time) entered on: 10/20/18 Sex Male
--- OUTSIDE RECORDS SUMMARY | 2022-04-13 13:38 | XMS_ITS | Continuity of Care Document ---
:1960 Author Organization [facility] Address [address] [place] [address]- Care Team Providers Name Role Phone Stephen Mota MD Primary Care Physician [phone] [place] [facility] [place]07[place] 06/06/21 [facility] [address] [place] [id number]- Allergies, Adverse Reactions, Alerts Substance Reaction Severity [...] EDT Start Date: 10/06/18 Status: Orderednystatin topical 298665 u/gm powder 1 application, Topically, 2 times [...]
--- OUTSIDE RECORDS SUMMARY | 2022-04-13 13:38 | XMS_ITS | Continuity of Care Document ---
:1960 Author Organization [facility] Address [address] [place] [id number]- Care Team Providers Name Role Phone Stephen Mota MD Primary Care Physician Encounter [facility] [place](s): 06/25/21 - 07/25/21 [facility] [address] [place] [address]- Allergies, Adverse Reactions, Alerts No Known Allergies [...] 05/07/21 13:10:00 EST, Route to Pharmacy Electronically, [facility]/pharmacy #[id number], Partial fill upon [...] 12/29/20 9:26:00 EDT, Route to Pharmacy Electronically, [facility]/pharmacy #1234 Tablet, new script for dose and instructions., 180, cm, 10/16/20... Start Date: 12/29/20 Status: OrderedMetamucil 3.4 gm/5.2 gm oral powder for reconstitution = 1.7 Gm, By Mouth, 3 times a day, PRN as needed for constipation, # 1,042 Gm, 1 Refills, Maintenance, 08/07/20 10:18:00 EST, REC Powder, [facility]/pharmacy #1234, Partial fill upon patient request if the prescription is for a schedule II opioid drug., 181,... Start Date: 08/07/20 Status: OrderedNitrostat 0.4 mg sublingual tablet 1 tablet = 0.4 mg, Sublingual, Every 5 minutes, 0 Refills, Maintenance, 10/06/18 14:56:14 EDT Start Date: 10/06/18 Status: Orderednystatin topical 709512 u/gm powder 1 application, Topically, 2 times a day, PRN Rash, apply to left upper thigh area, keep open to air as much as possible, # 60 Gm, 1 Refills, Maintenance, 12/07/20 13:52:00 EDT, Powder, [facility]/pharmacy #1234, 1 application Topically [...]
--- OUTSIDE RECORDS SUMMARY | 2022-04-13 13:38 | XMS_ITS | Continuity of Care Document ---
:1960 Author Organization [facility] Address [address] [place] [address]- Care Team Providers Name Role Phone Harini Longoria MD Primary Care Physician Encounter [facility] [place] Date(s): 11/30/19 - 12/30/19 [facility] [address] [address]- [facility] Allergies, Adverse Reactions, Alerts [...] 12/07/19 15:17:00 EDT, Route to Pharmacy Electronically, [facility]/pharmacy #[id number] Tablet, 181, cm, 10/21/19 11:23:00 EDT, Height, 97, kg, ... Start Date: 12/07/19 Status: OrderedNitrostat 0.4 mg sublingual tablet 1 tablet = 0.4 mg, Sublingual, Every 5 minutes, 0 Refills, Maintenance, 10/06/18 14:56:14 EDT Start Date: 10/06/18 Status: Orderednystatin topical 997047 u/gm powder 1 application, Topically, 2 times a day, PRN Rash, apply to left upper thigh area, keep open to air as much as possible, # 60 Gm, 1 Refills, Maintenance, 11/17/19 11:20:00 EDT, Powder, [facility]/pharmacy #1234, 1 application Topically 2 times a day,PRN:Rash... Start Date: 11/17/19 Status: OrderedoxyCODONE 5 mg oral tablet 5 mg, 1, tablet, By Mouth, Every 6 hours, PRN, Continue to decrease use as tolerated, # 42 tablet, Refills 0, Tot. Refills 0, Maintenance, Pain , Moderate, 07/28/19 11:56:00 EST, Route to Pharmacy Electronically, [facility]/pharmacy #1234, 178.2, cm, ... Start Date: [...] mL, 0 Refills, Maintenance, 11/30/19 10:33:00 EDT, [facility]/pharmacy #1234, two pre-mixed 450mL Bottles; take [...]
--- NOTE | 2022-04-13 14:00 | PC.NURSE ---
patient a/ox4 . alla . heart rate regular at 87 beats , heart murmur noted . lungs diminished throughout . wheezes noted throughout . breathing is even and unlabored . patient has a non productive cough . patient has a colostomy in left lower abdomen , stoma is beefy red . non -pitting noted in lower extremities . abdomen soft not tender . positive bowel sounds in all four quadrants . IV placed in left A.C. Lasix given as ordered by provider . Patient sent to C.T for images . patient on cardiac cath technician . at bedside . family and patient aware of plan of care .
[2022-04-13] MEDS: iohexoL 350 MG/ML 100 ML INFUS..BTL IV (14:38)
--- NOTE | 2022-04-13 14:42 | PC.NURSE ---
Patient to ultrasound for imaging . patient aware of plan of care .
--- NOTE | 2022-04-13 16:08 | PC.NURSE ---
Patient had a run of Vtach that lasted 3 seconds . Jorge Luis Watt aware . Patient asymptomatic , no c/o of headache , chest pain or dizziness . Troponin lab ordered and drawn , sent for analysis . patient and aware of plan of care .
[2022-04-13 16:17] LABS: Troponin-I High Sensitivity 41.5 ng/L (<3.5-35.0)
--- NOTE | 2022-04-13 16:50 | PC.NURSE ---
Patient began having episodes of of oxygen levels decreasing to 87-89 on room air . patient was put on 2l via nasal canulla and O2 improved to 96% . patient aware of plan of care .
--- NOTE | 2022-04-13 18:20 | PM.IMHP ---
History of Present Illness Date of Service: 04/13/22 Attending physician on admission: Andres Henderson Chief Complaint: sob, cough 61-year-old male with history of HFrEF, severe aortic stenosis needing replacement, hypertension, COPD, history colorectal cancer s/p colectomy with colostomy in place, history skin cancer, hypertensive, retinopathy with history of vitreous hemorrhage presented to the ED this morning with his , Lluvia who is present at bedside during exam, for evaluation of generalized fatigue, malaise, myalgia, nausea, cough, postnasal drip, vomiting, wheezing, and shortness of breath ongoing for 3 days. On arrival, patient noted to be tachycardic with HR of 116, improved 87, vitals otherwise normal. ED nurse noted desaturation to 87-89% on room air and patient was started on 2 L supplemental O2 with improvement of oximetry to 96%. No leukocytosis, mild normocytic anemia with H/H 12.1/37.9%. Denies any recent epistaxis, melena, hematochezia. Creatinine 1.09, BUN 12. Patient did have episode of nonsustained ventricular tachycardia lasting several seconds without recurrence. EKG showed normal sinus rhythm with PVCs and nonspecific ST/T-wave abnormality. Electrolyte levels normal. Trop-I 35.1, 40.2 on 1 hour repeat, and 41.5 on 3 hour repeat. Lactic acid 0.7. BNP 2517. Negative for COVID-19, influenza. CXR showed right base. Subsequent CT of the chest showed large right-sided pleural effusion, early dilatation of the thoracic aorta, and was negative for pulmonary embolism. Abdominal/pelvis CT negative for acute abnormality. In the ED, patient given albuterol nebulizer, 20 mg furosemide. Patient to be admitted for acute CHF exacerbation with loculated pleural effusion. He follows with Cardiology at [facility] and was scheduled for echocardiogram today but rescheduled this due to the way he was feeling. Review of Systems Review of Systems: General: +malaise. No fevers, unintentional weight loss HEENT: No blurred vision, diplopia. No sore throat, nasal congestion, rhinorrhea, sinus pain, ear pain Cardiovascular: No chest pain, palpitations, or leg edema Respiratory: +shortness of breath, +wheezing, +cough GI: +nausea, +vomiting. No abdominal pain, diarrhea, constipation, melena, hematochezia : No dysuria, hematuria, increased urinary frequency, decreased urinary output MSK: No myalgia, back pain Neuro: No headaches, weakness, paresthesias Skin: No rashes or lesions [facility] Medical History (Updated 04/13/22 @ 18:54 by HEBER Infante) Aortic stenosis Colostomy in place COPD (chronic obstructive pulmonary disease) History of colorectal cancer History of skin cancer HTN (hypertension) Retinopathy Family History Father CHF (congestive heart failure) Mother Dementia Maternal Grandmother Dementia Maternal Grandfather Lung cancer Surgical History (Updated 04/13/22 @ 18:50 by HEBER Infante) S/P appendectomy S/P colostomy S/P laparoscopic-assisted sigmoidectomy Social History Alcohol intake: former Smoked in Last 30 Days: No Advance Directives: Yes Advance Directives Information Provided: Yes Advance Directives on File: No Meds Allergies Allergy/AdvReac Type Severity Reaction Status Date / Time No Known Allergies Allergy Verified 04/13/22 11:07 Active Medications: Current Medications Acetaminophen (Acetaminophen 325 Mg Tablet) 650 mg PO Q6H PRN PRN Reason: Pain, Mild (Pain Scale 1-3) Enoxaparin Sodium (Enoxaparin Sodium 40 Mg/0.4 Ml Syringe) 40 mg SUBCUT Q24H GERARDO Ondansetron HCl (Ondansetron Hcl 4 Mg/2 Ml Vial) 4 mg IVPUSH Q8H PRN PRN Reason: Nausea and Vomiting Sodium Chloride (0.9 % Sodium Chloride Flush 3 Ml Syringe) 3 ml IVFLUSH QSHIFT GERARDO Physical Exam Vital Signs and Narrative: Vital Signs: Last Vital Signs Temp 98.8 F 04/13/22 11:07 Pulse 87 04/13/22 13:36 Resp 18 04/13/22 13:36 BP 162/102 H 04/13/22 11:07 Pulse Ox 97 04/13/22 11:07 O2 Del Method 04/13/22 11:07 BMI result Body Mass Index 25.7 Constitutional - Awake and Alert, No apparent distress Eyes - PERRLA, EOMI Cardiovascular - S1S2, RRR, No edema Respiratory - rhonchi coarse lung sounds bilaterally with diffuse wheezing and diminished lung sounds in the right lower lobe. Normal lung expansion, Normal respiratory effort, No respiratory distress with oximetry 94% on room air during exam Gastrointestinal - NT / ND; +BS; No rebound or guarding. Colostomy in place with bleeding Extremities - no calf tenderness bilaterally, no swelling Musculoskeletal - Normal inspection, normal ROM Skin - Warm/Dry Neurological - Alert & oriented x3, CN II-XII in tact, 5/5 strength BUE and BLE Psychological - Appropriate affect Results Labs CBC and Chem 7: 04/13/22 11:51 04/13/22 11:51 Labs: Laboratory Results - last 24 hr 04/13/22 04/13/22 04/13/22 11:20 11:20 11:51 MCV 95.7 MCH 30.6 MCHC 31.9 RDW 12.7 Plt Count 224 MPV 8.4 L Immature Gran % (Auto) 0.3 Neut % (Auto) 84.3 H Lymph % (Auto) 5.1 L [place] % (Auto) 8.7 Eos % (Auto) 0.9 Baso % (Auto) 0.7 Lymph # (Auto) 0.4 L [place] # (Auto) 0.6 Eos # (Auto) 0.1 Baso # (Auto) 0.1 Abs Immat Gran (auto) 0.02 Absolute Neuts (auto) 5.8 Absolute Nucleated RBC 0.000 Nucleated RBC % (auto) 0.0 Anion Gap Estim Creat Clear Calc Estimated GFR Random Glucose Lactic Acid Calcium Magnesium Total Bilirubin Direct Bilirubin AST ALT Alkaline Phosphatase Troponin I High Sens B-Natriuretic Peptide Total Protein Albumin Lipase COVID-19 ([place]) Negative COVID-19 Clin Com See Note Influenza Type A (JEAN) Negative Influenza Type B (JEAN) Negative Influenza A & B Note See Note 04/13/22 04/13/22 04/13/22 11:51 11:51 11:51 MCV MCH MCHC RDW Plt Count MPV Immature Gran % (Auto) Neut % (Auto) Lymph % (Auto) [place] % (Auto) Eos % (Auto) Baso % (Auto) Lymph # (Auto) [place] # (Auto) Eos # (Auto) Baso # (Auto) Abs Immat Gran (auto) Absolute Neuts (auto) Absolute Nucleated RBC Nucleated RBC % (auto) Anion Gap 17 Estim Creat Clear Calc 73.8 Estimated GFR > 60 Random Glucose 117 H Lactic Acid Calcium 9.1 Magnesium 2.1 Total Bilirubin 0.9 Direct Bilirubin 0.3 AST 18 ALT 10 Alkaline Phosphatase 72 Troponin I High Sens 35.1 H B-Natriuretic Peptide 2517 H Total Protein 7.6 Albumin 4.5 Lipase 20 COVID-19 ([place]) COVID-19 Clin Com Influenza Type A (JEAN) Influenza Type B (JEAN) Influenza A & B Note 04/13/22 04/13/22 04/13/22 12:57 12:57 15:20 MCV MCH MCHC RDW Plt Count MPV Immature Gran % (Auto) Neut % (Auto) Lymph % (Auto) [place] % (Auto) Eos % (Auto) Baso % (Auto) Lymph # (Auto) [place] # (Auto) Eos # (Auto) Baso # (Auto) Abs Immat Gran (auto) Absolute Neuts (auto) Absolute Nucleated RBC Nucleated RBC % (auto) Anion Gap Estim Creat Clear Calc Estimated GFR Random Glucose Lactic Acid 0.7 Calcium Magnesium Total Bilirubin Direct Bilirubin AST ALT Alkaline Phosphatase Troponin I High Sens 40.2 H 41.5 H B-Natriuretic Peptide Total Protein Albumin Lipase COVID-19 ([place]) COVID-19 Clin Com Influenza Type A (JEAN) Influenza Type B (JEAN) Influenza A & B Note Imaging Radiologist's Impressions: Impressions Chest X-Ray 04/13/22 11:45 IMPRESSION: Right base disease with partially loculated effusion. Abdomen/Pelvis CT 04/13/22 14:59 IMPRESSION: Large right-sided pleural effusion. Colostomy Status post appendectomy and sigmoidectomy Fleischner guidelines were followed. Chest CTA 04/13/22 14:59 IMPRESSION: 1. No evidence of pulmonary embolism. 2. Large pleural effusion on the right. 3. Early aneurysmal dilatation of thoracic aorta VTE: negative Assessment and Plan (1) COPD exacerbation: Status: Acute (2) Pleural effusion: Status: Acute (3) Acute exacerbation of CHF (congestive heart failure): Status: Acute Plan 61-year-old male with history of HFrEF, severe aortic stenosis needing replacement, hypertension, COPD, history colorectal cancer s/p colectomy with colostomy in place, history skin cancer, hypertensive, retinopathy with history of vitreous hemorrhage admitted for suspected CHF exacerbation with large loculated pleural effusion and acute hypoxic respiratory failure. #Acute CHF exacerbation with hx HFrEF -CXR with large loculated right sided pleural effusion -BNP >2500. Baseline unclear -No other evidence of fluid overload -Cardiology consult placed. Pending evaluation, may need thoracentesis for further evaluation of pleural effusion -Continue home diuretics -echocardiogram ordered -Strict I&O -Cardiac diet -Daily weights #Acute hypoxic respiratory failure -secondary to CHF vs COPD exacerbation -Continue supplemental O2 to maintain oximetry 92% or greater -See plan for CHF and COPD exacerbation #Acute COPD exacerbation- mild -PO prednisone 40mg daily x 5 days -No abx warranted -Duonebs q4h while awake -Supplemental O2 as above #NSVT -K, Mag normal. Trops flat -Add metoprolol BID -Admit to telemetry #HTN- controlled -Continue home meds, add metoprolol #Aortic stenosis -Needs AVR -Echo pending DVT prophylaxis-Lovenox Full code Patient requires inpatient stay of at least 2 midnights for management acute CHF exacerbation with large loculated pleural effusion requiring IV diuresis and expert consultation and possible thoracentesis as well as supplemental oxygen due to acute hypoxic respiratory failure secondary to CHF exacerbation. Quality Stroke Does the patient have a stroke diagnosis?: No VTE Prior VTE?: No VTE Risk Level:: Medical - moderate - high VTE Device Contraindication: Treatment Not Indicated VTE Drug Contraindication: N/A - Med Ordered
[2022-04-13] MEDS: Furosemide 40 MG/4 ML VIAL IVPUSH (18:46)
[2022-04-13 18:51] VITALS: BP 128/86; PULSE 76; RESP 16; TEMP 36.7; O2SAT 95
[2022-04-13] MEDS: Albuterol/Iprat 2.5/0.5MG 3 ML AMPUL.NEB INHALE (19:16)
[2022-04-13 19:17] VITALS: PULSE 78; RESP 18; O2SAT 92
[2022-04-13] MEDS: Metoprolol Tartrate 12.5 MG HALFTAB PO (20:17)
[2022-04-13] MEDS: Enoxaparin Sodium 40 MG/0.4 ML SYRINGE SUBCUT (20:18)
--- NOTE | 2022-04-13 20:44 | PC.NURSE ---
Attempted to call report at 20:44. Front Desk Officer will find the nurse and call back
[2022-04-13 22:07] VITALS: BMI 27.9
[2022-04-13 22:10] VITALS: BP 137/84; PULSE 71; RESP 18; TEMP 36.2; O2SAT 97
[2022-04-13] MEDS: 0.9 % Sodium Chloride Flush 3 ML SYRINGE IVFLUSH (22:39)
[2022-04-14] VITALS (9 sets, daily range): BP systolic 110–138; BP diastolic 55–87; PULSE 65–75; RESP 16–75; TEMP 36.2–37.1; O2SAT 91–98; BMI 27.9
[2022-04-14 07:20] LABS: Anion Gap 17 (12-20); Blood Urea Nitrogen 14 mg/dL (9-16); Carbon Dioxide 28 mmol/L (22-29); Chloride 99 mmol/L (96-108); Creatinine Clr Calc Pharmacy 81.5; Estimated Glomerular Filt Rate > 60; Glucose Random 91 mg/dL (60-115); Potassium 4.4 mmol/L (3.3-5.1); Sodium 140 mmol/L (135-145)
[2022-04-14 07:22] LABS: B Type Natriuretic Peptide 1244 pg/mL (<100)
[2022-04-14] MEDS: Albuterol/Iprat 2.5/0.5MG 3 ML AMPUL.NEB INHALE ×4 (08:07→19:43)
[2022-04-14] MEDS: 0.9 % Sodium Chloride Flush 3 ML SYRINGE IVFLUSH ×3 (08:56→21:30)
[2022-04-14] MEDS: predniSONE 20 MG TABLET 40 MG PO (08:56)
[2022-04-14] MEDS: Metoprolol Tartrate 12.5 MG HALFTAB PO (08:56)
[2022-04-14] MEDS: Furosemide 20 MG/2 ML VIAL IVPUSH (09:00)
[2022-04-14] MEDS: Acetaminophen 325 MG TABLET 650 MG PO (09:01)
[2022-04-14 09:04] LABS: Procalcitonin 0.03 ng/mL
[2022-04-14] MEDS: Diphenoxylate/Atrop 2.5/0.025 TABLET 2 TAB PO ×3 (09:12→21:26)
--- NOTE | 2022-04-14 11:00 | PM.CNCAR ---
History of Present Illness History of Present Illness Date of Service: 04/14/22 Requesting physician: Candi Pichardo Chief complaint: nausea vomiting wheezing, Narrative: 61-year-old gentleman who is presenting for nausea vomiting and wheezing/shortness of breath. He also was experiencing body aches. Will check COVID-19 test at home. He also had flu testing done. He has colorectal cancer in the past and has a colostomy. There has been significant colostomy output for long time. He has been vomiting and having significant colostomy output for long time. He also has some upper back pain. He has severe aortic valve stenosis by his report and is being monitored closely with 6 monthly echocardiography. He has some shortness of breath with activities. He also carries a diagnosis of COPD and has been wheezing and coughing. No fevers or chills otherwise. He was due to get an echocardiogram this week. He follows with [facility]. He had CT scan which showed a large right pleural effusion. [facility] Past Medical History Medical History (Updated 04/14/22 @ 15:49 by Andrew Stewart MD) Aortic stenosis Colostomy in place COPD (chronic obstructive pulmonary disease) History of colorectal cancer History of skin cancer HTN (hypertension) Retinopathy Family History Family History Father CHF (congestive heart failure) Mother Dementia Maternal Grandmother Dementia Maternal Grandfather Lung cancer Surgical History Surgical History S/P appendectomy S/P colostomy S/P laparoscopic-assisted sigmoidectomy Social History Social History Household Members: Spouse Housing: Condominium Do you presently have visiting nurse or other home services: No Alcohol intake: former Patient Tobacco Use Status: Never used Tobacco Smoked in Last 30 Days: No Use of substances other than those prescribed or required for medical reasons: No Currently Displaying Signs/Symptoms of Drug Intoxication Withdrawal: No Any prior treatment program specific to substance use: No Have you been hit, kicked, punched, or otherwise hurt by someone within the past year? If so, by whom?: No Do you feel safe in your current relationship?: Yes Is there a partner from a previous relationship who is making you feel unsafe now?: No Are you made to feel afraid or neglected: No Advance Directives: Yes Advance Directives Information Provided: Yes Advance Directives on File: No Advance Directives Date on File: 04/13/22 Do you have thoughts of harming others: None Do you have a plan to hurt others: No Plan Recently lost weight without trying: No Nutrition Risks: Poor intake 0-25% >4 days Poor oral hygiene: No service: Yes Current occupational status: retired Meds Allergies Allergy/AdvReac Type Severity Reaction Status Date / Time No Known Allergies Allergy Verified 04/13/22 11:07 Active Medications: Current Medications Acetaminophen (Acetaminophen 325 Mg Tablet) 650 mg PO Q6H PRN PRN Reason: Pain, Mild (Pain Scale 1-3) Last Admin: 04/14/22 09:01 Dose: 650 mg Albuterol/Ipratropium (Albuterol/Iprat 2.5/0.5mg 3 Ml Ampul.Neb) 3 ml INHALE RQ4H WHILE AWAKE [facility] Last Admin: 04/14/22 08:07 Dose: 3 ml Diphenoxylate HCl/Atropine (Diphenoxylate/Atrop 2.5/0.025 Tablet) 2 tab PO QID PRN PRN Reason: loose stool Last Admin: 04/14/22 09:12 Dose: 2 tab Enoxaparin Sodium (Enoxaparin Sodium 40 Mg/0.4 Ml Syringe) 40 mg SUBCUT Q24H [facility] Last Admin: 04/13/22 20:18 Dose: 40 mg Furosemide (Furosemide 20 Mg/2 Ml Vial) 20 mg IVPUSH DAILY [facility]; Protocol Last Admin: 04/14/22 09:00 Dose: 20 mg Metoprolol Tartrate (Metoprolol Tartrate 12.5 Mg Halftab) 12.5 mg PO BID [facility]; Protocol Last Admin: 04/14/22 08:56 Dose: 12.5 mg Ondansetron HCl (Ondansetron Hcl 4 Mg/2 Ml Vial) 4 mg IVPUSH Q8H PRN PRN Reason: Nausea and Vomiting Prednisone (Prednisone 20 Mg Tablet) 40 mg PO DAILY [facility] Last Admin: 04/14/22 08:56 Dose: 40 mg Sodium Chloride (0.9 % Sodium Chloride Flush 3 Ml Syringe) 3 ml IVFLUSH QSHIFT [facility] Last Admin: 04/14/22 08:56 Dose: 3 ml Home Medications Medication Instructions Recorded Confirmed Last Taken Type albuterol sulfate 90 mcg/actuation 2 puff inhalation Q4-6H PRN 04/14/22 04/14/22 Unknown History aerosol inhaler (ProAir HFA) Shortness Of Breath amlodipine 5 mg tablet 2.5 mg PO DAILY 04/14/22 04/14/22 Unknown History carvedilol 3.125 mg tablet 3.125 mg PO BID 04/14/22 04/14/22 04/13/22 History diphenoxylate-atropine 2.5 2 tab PO QID PRN diarrhea 04/14/22 04/14/22 04/13/22 History mg-0.025 mg tablet duloxetine 60 mg capsule,delayed 60 mg PO DAILY 04/14/22 04/14/22 04/13/22 History release fluticasone 250 mcg-salmeterol 50 1 inh inhalation BID 04/14/22 04/14/22 04/13/22 History mcg/dose blistr powdr for inhalation (Advair Diskus) fluticasone propionate 50 1 spray intranasal DAILY 04/14/22 04/14/22 04/13/22 History mcg/actuation nasal spray,suspension levothyroxine 175 mcg tablet 175 mcg PO DAILY@0630 04/14/22 04/14/22 04/13/22 History loratadine 10 mg tablet (Claritin) 10 mg PO DAILY 04/14/22 04/14/22 04/13/22 History nitroglycerin 0.4 mg sublingual 0.4 mg sublingual Q5M PRN Chest 04/14/22 04/14/22 Unknown History tablet Pain oxybutynin chloride 5 mg tablet 1 tab PO BEDTIME 04/14/22 04/14/22 04/13/22 History pravastatin 10 mg tablet 10 mg PO BEDTIME 04/14/22 04/14/22 04/13/22 History sacubitril 24 mg-valsartan 26 mg 1 tab PO BID 04/14/22 04/14/22 04/13/22 History tablet (Entresto) spironolactone 25 mg tablet 12.5 mg PO DAILY 04/14/22 04/14/22 04/13/22 History torsemide 20 mg tablet 2 tab PO BID@0900,1700 04/14/22 04/14/22 04/13/22 History Physical Exam Vital Signs: Vital Signs: Last Vital Signs Temp 97.2 F 04/14/22 07:30 Pulse 70 04/14/22 08:08 Resp 17 04/14/22 08:08 BP 132/71 04/14/22 07:30 Pulse Ox 96 04/14/22 07:30 O2 Del Method 04/14/22 07:30 O2 Flow Rate 2 04/14/22 07:30 BMI result Body Mass Index 27.9 GENERAL APPEARANCE: in no acute distress, pleasant. NECK: no carotid bruit, no jugular venous distention. SKIN: no suspicious lesions, warm and dry. HEART: ESM aortic area with no 2nd heart sound, regular rate and rhythm. LUNGS: b/l expiratory wheezes. ABDOMEN: soft, nontender. Colostomy in place. EXTREMITIES: no edema. PERIPHERAL PULSES: equal. NEUROLOGIC: No gross deficits, AAO X 3 Objective Labs and Meds Result diagrams: 04/13/22 11:51 04/14/22 06:31 Lab results: Laboratory Results - last 24 hr 04/13/22 04/13/22 04/13/22 11:20 11:20 11:51 WBC 6.9 RBC 3.96 L Hgb 12.1 L Hct 37.9 L MCV 95.7 MCH 30.6 MCHC 31.9 RDW 12.7 Plt Count 224 MPV 8.4 L Immature Gran % (Auto) 0.3 Neut % (Auto) 84.3 H Lymph % (Auto) 5.1 L Thomas % (Auto) 8.7 Eos % (Auto) 0.9 Baso % (Auto) 0.7 Lymph # (Auto) 0.4 L Thomas # (Auto) 0.6 Eos # (Auto) 0.1 Baso # (Auto) 0.1 Abs Immat Gran (auto) 0.02 Absolute Neuts (auto) 5.8 Absolute Nucleated RBC 0.000 Nucleated RBC % (auto) 0.0 Sodium Potassium Chloride Carbon Dioxide Anion Gap BUN Creatinine Estim Creat Clear Calc Estimated GFR Random Glucose Lactic Acid Calcium Magnesium Total Bilirubin Direct Bilirubin AST ALT Alkaline Phosphatase Troponin I High Sens B-Natriuretic Peptide Total Protein Albumin Lipase Procalcitonin COVID-19 ([place]) Negative COVID-19 Clin Com See Note Influenza Type A (JEAN) Negative Influenza Type B (JEAN) Negative Influenza A & B Note See Note 04/13/22 04/13/22 04/13/22 11:51 11:51 11:51 WBC RBC Hgb Hct MCV MCH MCHC RDW Plt Count MPV Immature Gran % (Auto) Neut % (Auto) Lymph % (Auto) Thomas % (Auto) Eos % (Auto) Baso % (Auto) Lymph # (Auto) Thomas # (Auto) Eos # (Auto) Baso # (Auto) Abs Immat Gran (auto) Absolute Neuts (auto) Absolute Nucleated RBC Nucleated RBC % (auto) Sodium 142 Potassium 4.4 Chloride 102 Carbon Dioxide 27 Anion Gap 17 BUN 12 Creatinine 1.09 Estim Creat Clear Calc 73.8 Estimated GFR > 60 Random Glucose 117 H Lactic Acid Calcium 9.1 Magnesium 2.1 Total Bilirubin 0.9 Direct Bilirubin 0.3 AST 18 ALT 10 Alkaline Phosphatase 72 Troponin I High Sens 35.1 H B-Natriuretic Peptide 2517 H Total Protein 7.6 Albumin 4.5 Lipase 20 Procalcitonin COVID-19 ([place]) COVID-19 Clin Com Influenza Type A (JEAN) Influenza Type B (JEAN) Influenza A & B Note 04/13/22 04/13/22 04/13/22 12:57 12:57 15:20 WBC RBC Hgb Hct MCV MCH MCHC RDW Plt Count MPV Immature Gran % (Auto) Neut % (Auto) Lymph % (Auto) Thomas % (Auto) Eos % (Auto) Baso % (Auto) Lymph # (Auto) Thomas # (Auto) Eos # (Auto) Baso # (Auto) Abs Immat Gran (auto) Absolute Neuts (auto) Absolute Nucleated RBC Nucleated RBC % (auto) Sodium Potassium Chloride Carbon Dioxide Anion Gap BUN Creatinine Estim Creat Clear Calc Estimated GFR Random Glucose Lactic Acid 0.7 Calcium Magnesium Total Bilirubin Direct Bilirubin AST ALT Alkaline Phosphatase Troponin I High Sens 40.2 H 41.5 H B-Natriuretic Peptide Total Protein Albumin Lipase Procalcitonin COVID-19 ([place]) COVID-19 Clin Com Influenza Type A (JEAN) Influenza Type B (JEAN) Influenza A & B Note 04/14/22 04/14/22 04/14/22 06:31 06:31 06:31 WBC RBC Hgb Hct MCV MCH MCHC RDW Plt Count MPV Immature Gran % (Auto) Neut % (Auto) Lymph % (Auto) Thomas % (Auto) Eos % (Auto) Baso % (Auto) Lymph # (Auto) Thomas # (Auto) Eos # (Auto) Baso # (Auto) Abs Immat Gran (auto) Absolute Neuts (auto) Absolute Nucleated RBC Nucleated RBC % (auto) Sodium 140 Potassium 4.4 Chloride 99 Carbon Dioxide 28 Anion Gap 17 BUN 14 Creatinine 1.07 Estim Creat Clear Calc 81.5 Estimated GFR > 60 Random Glucose 91 Lactic Acid Calcium 9.0 Magnesium Total Bilirubin Direct Bilirubin AST ALT Alkaline Phosphatase Troponin I High Sens B-Natriuretic Peptide 1244 H Total Protein Albumin Lipase Procalcitonin 0.03 COVID-19 ([place]) COVID-19 Clin Com Influenza Type A (JEAN) Influenza Type B (JEAN) Influenza A & B Note Imaging Radiologist's impression: Impressions Chest X-Ray 04/13/22 11:45 IMPRESSION: Right base disease with partially loculated effusion. Abdomen/Pelvis CT 04/13/22 14:59 IMPRESSION: Large right-sided pleural effusion. Colostomy Status post appendectomy and sigmoidectomy Fleischner guidelines were followed. Chest CTA 04/13/22 14:59 IMPRESSION: 1. No evidence of pulmonary embolism. 2. Large pleural effusion on the right. 3. Early aneurysmal dilatation of thoracic aorta VTE: negative Assessment and Plan (1) COPD exacerbation: Status: Acute (2) Pleural effusion: Status: Acute (3) Aortic stenosis: Status: Acute Plan 61-year-old gentleman is here for nausea vomiting and wheezing. He has COPD exacerbation. Should be treated with antibiotics and steroids. Does not look significantly volume overloaded at this point. He has right pleural effusion and background of colon cancer. The effusion can related to aortic stenosis and elevated pulmonary pressures but must be drained to improve his symptoms and also cytology should be sent to make sure that there is no cancerous process. He by exam has severe aortic valve stenosis. He is undergoing workup for that. He was due to get an echocardiogram which we can arrange while he is here inpatient. Would just continue home medications currently otherwise. Monitor electrolytes closely. Thank you for allowing me to participate in the care of your patient. Please feel free to contact me if you have any questions. Procedures Date of Service Date of Service: 04/14/22
[2022-04-14 12:25] LABS: Adenovirus PCR Not Detected (Not Detect.); Bordetella parapertussis PCR Not Detected (Not Detect.); Bordetella pertussis PCR Not Detected (Not Detect.); Chlamydia pneumoniae PCR Not Detected (Not Detect.); Coronavirus 229E PCR Not Detected (Not Detect.); Coronavirus HKU1 PCR Not Detected (Not Detect.); Coronavirus NL63 PCR Not Detected (Not Detect.); Coronavirus OC43 PCR Not Detected (Not Detect.); Human metapneumovirus PCR Not Detected (Not Detect.); Influenza A PCR Not Detected (Not Detect.); Influenza B PCR Not Detected (Not Detect.); SARS-CoV-2 PCR Not Detected (Not Detect.)
[2022-04-14 12:26] LABS: Mycoplasma pneumoniae PCR Not Detected (Not Detect.); Parainfluenza 1 PCR Not Detected (Not Detect.); Parainfluenza 2 PCR Not Detected (Not Detect.); Parainfluenza 3 PCR Not Detected (Not Detect.); Parainfluenza 4 PCR Not Detected (Not Detect.); RSV PCR Not Detected (Not Detect.); Rhino/Enterovirus PCR Detected (Not Detect.)
--- NOTE | 2022-04-14 12:50 | MHC.CM.PN ---
Addendum entered by Pita Ortiz 04/14/22 12:57: PT USES C-PAP FOR SLEEP Original Note: [facility] DELIVERED PT LIVES IN A CONDO WITH SPOUSE. NO SERVICES IN HOME. USES A CANE AT BASELINE. NO HCP BUT WILLING TO COMPLETE WHILE IP. COVID VAX X 3 AND ANNUAL FLU SHOT. PCP DR HARTMAN AT [place]. DP: HOME, NO SERVICES ANTICIPATED BUT OPEN TO [facility] SHOULD IT BE RECOMMENDED. SPOUSE WILL TRANSPORT AT DC. CM WILL FOLLOW FOR DC NEEDS.
--- NOTE | 2022-04-14 14:07 | P.PNIM_ITS ---
Subjective Subjective Date of Service: 04/14/22 Interval History: c/o nasal congestion, cough, and wheezing no further VT on telemetry no chest pain Review of Systems Review of Systems: Yes all other systems are reviewed and are negative Physical Exam Vital Signs: Vital Signs: Last Vital Signs Temp 97.9 F 04/14/22 11:28 Pulse 68 04/14/22 12:02 Resp 16 04/14/22 12:02 BP 113/69 04/14/22 11:28 Pulse Ox 93 04/14/22 11:28 O2 Del Method 04/14/22 11:28 O2 Flow Rate 2 04/14/22 07:30 BMI result Body Mass Index 27.9 Gen: in no acute distress HEENT: sclera anicteric, moist mucus membranes Neck: supple Lungs: diminished R base Heart: regular rate and rhythm, systolic <> murmur at base Abd: soft, non-tender, non-distended Ext: no edema Skin: warm/well-perfused Neuro: alert and oriented x3, no focal findings Psych: appropriate affect Objective Data Active Medications Acetaminophen (Acetaminophen 325 Mg Tablet) 650 mg PO Q6H PRN PRN Reason: Pain, Mild (Pain Scale 1-3) Last Admin: 04/14/22 09:01 Dose: 650 mg Documented By: GABRIELE Albuterol/Ipratropium (Albuterol/Iprat 2.5/0.5mg 3 Ml Ampul.Neb) 3 ml INHALE RQ4H WHILE AWAKE [facility] Last Admin: 04/14/22 12:01 Dose: 3 ml Documented By: FEDERICO Amlodipine Besylate (Amlodipine Besylate 2.5 Mg Tablet) 2.5 mg PO DAILY [facility]; Protocol Carvedilol (Carvedilol 3.125 Mg Tablet) 3.125 mg PO BID [facility]; Protocol Diphenoxylate HCl/Atropine (Diphenoxylate/Atrop 2.5/0.025 Tablet) 2 tab PO QID PRN PRN Reason: loose stool Last Admin: 04/14/22 09:12 Dose: 2 tab Documented By: GABRIELE Duloxetine HCl (Duloxetine Hcl 60 Mg Capsule.Dr) 60 mg PO DAILY [facility] Enoxaparin Sodium (Enoxaparin Sodium 40 Mg/0.4 Ml Syringe) 40 mg SUBCUT Q24H [facility] Last Admin: 04/13/22 20:18 Dose: 40 mg Documented By: NELLY Fluticasone Propionate (Fluticasone Propionate Nasal 16 Gm Peel) 1 spray NOSTRIL-B DAILY [facility] Levothyroxine Sodium (Levothyroxine Sodium 175 Mcg Tablet) 175 mcg PO DAILY@0630 [facility] Loratadine (Loratadine 10 Mg Tablet) 10 mg PO DAILY [facility] Metoprolol Tartrate (Metoprolol Tartrate 12.5 Mg Halftab) 12.5 mg PO BID [facility]; Protocol Last Admin: 04/14/22 08:56 Dose: 12.5 mg Documented By: GABRIELE Nitroglycerin (Nitroglycerin 0.4 Mg Tab.Subl) 0.4 mg SUBLINGUAL Q5M PRN PRN Reason: Chest Pain Non-Formulary Medication (Fluticasone Propion-Salmeterol [Advair Diskus]) 1 inhalation INHALE BID [facility] Non-Formulary Medication (Oxybutynin Chloride) 1 tab PO BEDTIME [facility] Ondansetron HCl (Ondansetron Hcl 4 Mg/2 Ml Vial) 4 mg IVPUSH Q8H PRN PRN Reason: Nausea and Vomiting Pravastatin Sodium (Pravastatin Sodium 10 Mg Tablet) 10 mg PO BEDTIME [facility] Prednisone (Prednisone 20 Mg Tablet) 40 mg PO DAILY [facility] Last Admin: 04/14/22 08:56 Dose: 40 mg Documented By: GABRIELE Sacubitril/Valsartan (Sacubitril/Valsartan 1 Tab Tablet) 1 tab PO BID [facility]; Protocol Sodium Chloride (0.9 % Sodium Chloride Flush 3 Ml Syringe) 3 ml IVFLUSH QSHIFT [facility] Last Admin: 04/14/22 08:56 Dose: 3 ml Documented By: GABRIELE Spironolactone (Spironolactone 25 Mg Tablet) 12.5 mg PO DAILY [facility]; Protocol Torsemide (Torsemide 20 Mg Tablet) 40 mg PO BID@0900,1700 [facility]; Protocol Labs CBC & Chem 7: 04/13/22 11:51 04/14/22 06:31 Labs: Laboratory Results - last 24 hr 04/13/22 04/14/22 04/14/22 15:20 06:31 06:31 Anion Gap 17 Estim Creat Clear Calc 81.5 Estimated GFR > 60 Random Glucose 91 Calcium 9.0 Troponin I High Sens 41.5 H B-Natriuretic Peptide 1244 H Procalcitonin Respiratory Panel [place] Adenovirus (Rapid PCR) B.pert (TEM-PCR) B.parapertussis DNA PCR C. pneumoniae DNA (PCR) Coronavirus OC43 (PCR) Coronavirus HKU1 (PCR) Coronavirus 229E (PCR) Coronavirus NL63 (PCR) Human Metapneumovir PCR Influenza A (RT-PCR) Influenza B (RT-PCR) M. pneumoniae (PCR) Parainfluenza 1 (PCR) Parainfluenza 2 (PCR) Parainfluenza 3 (PCR) Parainfluenza 4 (PCR) RSV (PCR) Entero/Rhino (PCR) SARS-CoV-2 RNA (RT-PCR) 04/14/22 04/14/22 06:31 09:45 Anion Gap Estim Creat Clear Calc Estimated GFR Random Glucose Calcium Troponin I High Sens B-Natriuretic Peptide Procalcitonin 0.03 Respiratory Panel [place] See Note Adenovirus (Rapid PCR) Not Detected B.pert (TEM-PCR) Not Detected B.parapertussis DNA PCR Not Detected C. pneumoniae DNA (PCR) Not Detected Coronavirus OC43 (PCR) Not Detected Coronavirus HKU1 (PCR) Not Detected Coronavirus 229E (PCR) Not Detected Coronavirus NL63 (PCR) Not Detected Human Metapneumovir PCR Not Detected Influenza A (RT-PCR) Not Detected Influenza B (RT-PCR) Not Detected M. pneumoniae (PCR) Not Detected Parainfluenza 1 (PCR) Not Detected Parainfluenza 2 (PCR) Not Detected Parainfluenza 3 (PCR) Not Detected Parainfluenza 4 (PCR) Not Detected RSV (PCR) Not Detected Entero/Rhino (PCR) Detected A SARS-CoV-2 RNA (RT-PCR) Not Detected Assessment and Plan (1) COPD exacerbation: Status: Acute Plan d#2 61yo M with HFrEF, sev aortic stenosis needing replacement, HTN, COPD, colorectal CA s/p colectomy/colostomy, HTN admitted with hypoxia suspected due to COPD vs. CHF with large R-sided pleural effusion # pleural effusion - arrange thoracentesis and send fluid for culture, chemistries, and cytology # acute-chronic HFrEF # sev aortic stenosis # NSVT - suspect less CHF at this point and more COPD- switch back to oral maintenance diuretics - update TTE - Cardiology consulted - continue Entresto, spironolactone, carvedilol - monitor K/Mg # COPD exacerbation - steroids, standing/prn nebs - continue ICS/LABA inhaler # acute hypoxic resp failure - wean O2 as tolerated # enterovirus/rhinovirus - droplet precautions # hypothyroidism - continue LT4 # VTE ppx: LMWH In my clinical judgment, the patient requires continued inpatient hospitalization for the following reasons: thoracentesis Quality Stroke Does the patient have a stroke diagnosis?: No VTE Prior VTE?: No VTE Risk Level:: Medical - moderate - high VTE Device Contraindication: Treatment Not Indicated VTE Drug Contraindication: N/A - Med Ordered
[2022-04-14] MEDS: Torsemide 20 MG TABLET 40 MG PO (16:18)
[2022-04-14] MEDS: Sacubitril/Valsartan 24/26 1 TAB TABLET PO (21:25)
[2022-04-14] MEDS: carvediloL 3.125 MG TABLET PO (21:25)
[2022-04-14] MEDS: Pravastatin Sodium 10 MG TABLET PO (21:25)
[2022-04-15] VITALS (10 sets, daily range): BP systolic 101–142; BP diastolic 54–81; PULSE 60–77; RESP 16–18; TEMP 36.6–36.9; O2SAT 93–99
[2022-04-15] MEDS: Levothyroxine Sodium 175 MCG TABLET PO (06:30)
[2022-04-15] MEDS: Diphenoxylate/Atrop 2.5/0.025 TABLET 2 TAB PO ×2 (06:39→18:15)
[2022-04-15 06:51] LABS: Anion Gap 14 (12-20); Blood Urea Nitrogen 27 mg/dL (9-16); Calcium 8.8 mg/dL (8.4-10.2); Carbon Dioxide 32 mmol/L (22-29); Chloride 98 mmol/L (96-108); Creatinine Clr Calc Pharmacy 76.5; Estimated Glomerular Filt Rate > 60; Glucose Random 91 mg/dL (60-115); Lactate Dehydrogenase 190 U/L (118-273); Magnesium 2.4 mg/dL (1.6-2.6); Potassium 4.5 mmol/L (3.3-5.1); Sodium 139 mmol/L (135-145)
[2022-04-15 06:56] LABS: B Type Natriuretic Peptide 813 pg/mL (<100)
--- NOTE | 2022-04-15 07:00 | CA_ITS ---
Transthoracic Echocardiogram Patient (Last, First, Middle): Eber Bustos P Gender: Male Date of : 1960 Age: 61 Procedure Date: 04/15/2022 Procedure Type: Transthoracic E[place] [facility] [place]: 177.8 cm Weight: 90.72 kg BSA: 2.09 m2 Heart Rate: 64 bpm BP: 109 / 67 mmHg Hypoid Gear Tester: SB Referring MD: Zainab BUCK Social Media Assistant: John Stout MD Symptoms: chf exacerbation Study Quality: Adequate ECG Rhythm: Sinus Conclusions: - 1. Moderately dilated left ventricle with moderate to severe LV systolic dysfunction with LVEF of 30-35% with grade 3 diastolic dysfunction 2. Moderately dilated left atrium 3. Moderate to severe aortic stenosis valve area of 1.01 centimeters sq and mean gradient of 30 mmHg with dimensionless index of 0.26 4. Mild mitral regurgitation 5. Mmildly elevated right ventricular systolic pressure 6. No gross pericardial effusion Findings Left Ventricle Moderately increased left ventricular cavity size. There is normal left ventricular wall thickness. The left ventricular systolic function is moderate to severely decreased. The visually estimated ejection fraction is between 30-35%. Spectral Doppler is indicative of a restrictive filling pattern. E/E prime ratio is >15, consistent with elevated filling pressures. Evidence suggests grade III (severe) diastolic dysfunction. Wall Motion Rest Echo Findings The entire apex, anterior wall, anteroseptal wall, entire lateral wall, and mid inferoseptal segment are hypokinetic. The basal inferior, mid inferior, and basal inferoseptal segments are akinetic. Right Ventricle Normal right ventricular cavity size and systolic function. Atria The left atrium is moderately dilated. Interatrial shunt cannot be excluded. The right atrium is mildly dilated. Aortic Valve There is moderate calcification of the aortic valve. There is moderate thickening of the aortic valve. There is moderate to severe aortic valve stenosis. The peak aortic gradient is 54 mmHg.The mean gradient is 30 mmHg. The aortic valve area is 1.01 cm2. There is mild aortic valve regurgitation. measured dimensionless index is 0.26 which is consistent with moderate to severe aortic stenosis Mitral Valve There is mild anterior and posterior mitral leaflet thickening. There is mild mitral annular calcification. There is mild mitral valve regurgitation. There is no mitral valve stenosis. Tricuspid Valve Normal tricuspid valve structure. There is mild tricuspid valve regurgitation. Normal right atrial pressure. Mild pulmonary hypertension is present. Great Vessels All visible segments of the aorta are normal in size. The pulmonary artery was not well visualized. Venous The inferior vena cava is normal in size and collapses greater than 50% with inspiration. Pericardium/Pleural There is no evidence of pericardial effusion. Prior Study Comparison No prior study available for comparison. Measurements 2D Linear Measurements IVSd: 1.08 0.6-0.9/0.6-1.0 cm LVIDd: 6.53 3.9-5.3/4.2-5.9 cm LVIDd Index: 3.12 2.4-3.2/2.2-3.1 cm/m2 LVIDs: 5.61 2.0-3.6 cm LVPWd: 0.89 0.7-1.1 cm LA Diam: 4.60 2.7-3.8/3.0-4.0 cm LAIDs Index: 2.20 1.5-2.3 cm/m2 LV Mass: 348.66 67-162/88-224 g LV Mass Index: 166.82 43-95/49-115 g/m2 LVOT Diam: 2.10 3.0+(-)1.3 cm 2D Systolic Function EF 4C: 31.90 >55% EF 2C: 27.00 >55% Mitral Valve MV Pk E: 1.14 MV PK A: 0.41 MV Decel Time: 160.00 E/A: 2.80 E'Medial: 5.11 E/E' Med: 22.30 PHT: 47.00 MVA PHT: 4.68 Decel Steele: 7.14 MR VTI: 1.76 Aortic Valve AoV Pk Castro: 3.66 AoV Mn Castro: 2.53 AoV VTI: 0.78 AoV Pk Grad: 54.00 Aov Mn Grad: 30.00 ANGY Cont.VTI: 1.01 AI Pk Castro: 3.68 AI Steele: 2.06 LVOT LVOT Pk Castro: 0.88 LVOT Mn Castro: 0.62 LVOT VTI: 0.20 LVOT Pk Grad: 3.00 LVOT Mn Grad: 2.00 LVOT Diam: 2.10 LVOT Area: 4.91 Diastolic Function MV Pk E: 1.14 MV Pk A: 0.41 E/A: 2.80 E'Medial: 5.11 E/E' Med: 22.30 Right Ventricle TAPSE (mm): 18.00 TVS' Castro: 9.90 Tricuspid Valve TR Pk Castro: 3.07 TR Pk Grad: 38.00 RA Press: 3.00 RVSP: 41.00 Great Vessels Aorta Sinus of Valsalva: 3.50 2.0-3.5 cm Ao Asc: 3.60 2.1-3.4 cm Pulmonary Valve PV Pk Castro: 0.70 Peak PV Grad: 2.00 Updated in Other Vendor System with Status of Final John Stout MD electronically signed on 04/15/2022 3:44:09 PM with status of Final
[2022-04-15] MEDS: Albuterol/Iprat 2.5/0.5MG 3 ML AMPUL.NEB INHALE ×4 (07:46→20:20)
[2022-04-15 09:21] LABS: INTERNATIONAL NORM RATIO 1.1 (0.9-1.1); Prothrombin Time 12.9 SEC (10.0-13.1)
[2022-04-15 09:24] LABS: Partial Thromboplastin Time 29.2 SEC (26.0-36.4)
[2022-04-15] MEDS: Torsemide 20 MG TABLET 40 MG PO ×2 (09:55→18:12)
[2022-04-15] MEDS: Spironolactone 25 MG TABLET 12.5 MG PO (09:55)
[2022-04-15] MEDS: DULoxetine HCl 60 MG CAPSULE.DR PO (09:57)
[2022-04-15] MEDS: Sacubitril/Valsartan 24/26 1 TAB TABLET PO ×2 (09:57→20:11)
[2022-04-15] MEDS: Loratadine 10 MG TABLET PO (09:58)
[2022-04-15] MEDS: 0.9 % Sodium Chloride Flush 3 ML SYRINGE IVFLUSH ×2 (09:58→15:04)
[2022-04-15] MEDS: predniSONE 20 MG TABLET 40 MG PO (09:58)
[2022-04-15] MEDS: amLODIPine Besylate 2.5 MG TABLET PO (09:58)
[2022-04-15] MEDS: carvediloL 3.125 MG TABLET PO ×2 (09:58→20:12)
[2022-04-15] MEDS: Fluticasone Propionate Nasal 16 GM SPRAY 1 SPRAY NOSTRIL-B (10:05)
--- NOTE | 2022-04-15 11:53 | P.PNIM_ITS ---
Subjective Subjective Date of Service: 04/15/22 Interval History: off O2 coughing nasal congestion no chest pain no leg edema Review of Systems Review of Systems: Yes all other systems are reviewed and are negative Physical Exam Vital Signs: Vital Signs: Last Vital Signs Temp 98.0 F 04/15/22 11:20 Pulse 61 04/15/22 11:20 Resp 17 04/15/22 11:20 BP 127/77 04/15/22 11:20 Pulse Ox 95 04/15/22 11:20 O2 Del Method 04/15/22 11:20 O2 Flow Rate 2 04/15/22 03:49 BMI result Body Mass Index 27.9 Gen: in no acute distress HEENT: sclera anicteric, moist mucus membranes Neck: supple Lungs: diminished R base Heart: regular rate and rhythm, systolic <> murmur at base Abd: soft, non-tender, non-distended Ext: no edema Skin: warm/well-perfused Neuro: alert and oriented x3, no focal findings Psych: appropriate affect Objective Data Active Medications Acetaminophen (Acetaminophen 325 Mg Tablet) 650 mg PO Q6H PRN PRN Reason: Pain, Mild (Pain Scale 1-3) Last Admin: 04/14/22 09:01 Dose: 650 mg Documented By: GABRIELE Albuterol/Ipratropium (Albuterol/Iprat 2.5/0.5mg 3 Ml Ampul.Neb) 3 ml INHALE RQ4H WHILE AWAKE [facility] Last Admin: 04/15/22 11:07 Dose: 3 ml Documented By: STEPHY Amlodipine Besylate (Amlodipine Besylate 2.5 Mg Tablet) 2.5 mg PO DAILY [facility]; Protocol Last Admin: 04/15/22 09:58 Dose: 2.5 mg Documented By: DUSTIN Carvedilol (Carvedilol 3.125 Mg Tablet) 3.125 mg PO BID [facility]; Protocol Last Admin: 04/15/22 09:58 Dose: 3.125 mg Documented By: DUSTIN Diphenoxylate HCl/Atropine (Diphenoxylate/Atrop 2.5/0.025 Tablet) 2 tab PO QID PRN PRN Reason: loose stool Last Admin: 04/15/22 06:39 Dose: 2 tab Documented By: CHITO Duloxetine HCl (Duloxetine Hcl 60 Mg Capsule.Dr) 60 mg PO DAILY [facility] Last Admin: 04/15/22 09:57 Dose: 60 mg Documented By: DUSTIN Enoxaparin Sodium (Enoxaparin Sodium 40 Mg/0.4 Ml Syringe) 40 mg SUBCUT Q24H [facility] Last Admin: 04/13/22 20:18 Dose: 40 mg Documented By: NELLY Fluticasone Propionate (Fluticasone Propionate Nasal 16 Gm [place]) 1 spray NOSTRIL-B DAILY [facility] Last Admin: 04/15/22 10:05 Dose: 1 spray Documented By: DUSTIN Fluticasone/Vilanterol (Fluticasone/Vilanterol 100/25 Blst.W.Dev) 1 puff INHALE RDAILY [facility] Last Admin: 04/15/22 07:43 Dose: Not Given Documented By: STEPHY Non-Admin Reason: Med Not Available Levothyroxine Sodium (Levothyroxine Sodium 175 Mcg Tablet) 175 mcg PO DAILY@0600 [facility] Last Admin: 04/15/22 06:30 Dose: 175 mcg Documented By: CHITO Loratadine (Loratadine 10 Mg Tablet) 10 mg PO DAILY [facility] Last Admin: 04/15/22 09:58 Dose: 10 mg Documented By: DUSTIN Nitroglycerin (Nitroglycerin 0.4 Mg Tab.Subl) 0.4 mg SUBLINGUAL Q5M PRN PRN Reason: Chest Pain Non-Formulary Medication (Oxybutynin Chloride) 1 tab PO BEDTIME [facility] Ondansetron HCl (Ondansetron Hcl 4 Mg/2 Ml Vial) 4 mg IVPUSH Q8H PRN PRN Reason: Nausea and Vomiting Pravastatin Sodium (Pravastatin Sodium 10 Mg Tablet) 10 mg PO BEDTIME [facility] Last Admin: 04/14/22 21:25 Dose: 10 mg Documented By: PRIYA Prednisone (Prednisone 20 Mg Tablet) 40 mg PO DAILY [facility] Last Admin: 04/15/22 09:58 Dose: 40 mg Documented By: DSUTIN Sacubitril/Valsartan (Sacubitril/Valsartan 24/ 1 Tab Tablet) 1 tab PO BID [facility]; Protocol Last Admin: 04/15/22 09:57 Dose: 1 tab Documented By: DUSTIN Sodium Chloride (0.9 % Sodium Chloride Flush 3 Ml Syringe) 3 ml IVFLUSH QSHIFT [facility] Last Admin: 04/15/22 09:58 Dose: 3 ml Documented By: DUSTIN Spironolactone (Spironolactone 25 Mg Tablet) 12.5 mg PO DAILY [facility]; Protocol Last Admin: 04/15/22 09:55 Dose: 12.5 mg Documented By: DUSTIN Torsemide (Torsemide 20 Mg Tablet) 40 mg PO BID@0900,1700 [facility]; Protocol Last Admin: 04/15/22 09:55 Dose: 40 mg Documented By: DUSTIN Labs CBC & Chem 7: 04/13/22 11:51 04/15/22 06:02 Labs: Laboratory Results - last 24 hr 04/14/22 04/15/22 04/15/22 09:45 06:02 06:02 PT INR APTT Anion Gap 14 Estim Creat Clear Calc 76.5 Estimated GFR > 60 Random Glucose 91 Calcium 8.8 Magnesium 2.4 Lactate Dehydrogenase 190 B-Natriuretic Peptide 813 H Respiratory Panel [place] See Note Adenovirus (Rapid PCR) Not Detected B.pert (TEM-PCR) Not Detected B.parapertussis DNA PCR Not Detected C. pneumoniae DNA (PCR) Not Detected Coronavirus OC43 (PCR) Not Detected Coronavirus HKU1 (PCR) Not Detected Coronavirus 229E (PCR) Not Detected Coronavirus NL63 (PCR) Not Detected Human Metapneumovir PCR Not Detected Influenza A (RT-PCR) Not Detected Influenza B (RT-PCR) Not Detected M. pneumoniae (PCR) Not Detected Parainfluenza 1 (PCR) Not Detected Parainfluenza 2 (PCR) Not Detected Parainfluenza 3 (PCR) Not Detected Parainfluenza 4 (PCR) Not Detected RSV (PCR) Not Detected Entero/Rhino (PCR) Detected A SARS-CoV-2 RNA (RT-PCR) Not Detected 04/15/22 09:08 PT 12.9 INR 1.1 APTT 29.2 Anion Gap Estim Creat Clear Calc Estimated GFR Random Glucose Calcium Magnesium Lactate Dehydrogenase B-Natriuretic Peptide Respiratory Panel [place] Adenovirus (Rapid PCR) B.pert (TEM-PCR) B.parapertussis DNA PCR C. pneumoniae DNA (PCR) Coronavirus OC43 (PCR) Coronavirus HKU1 (PCR) Coronavirus 229E (PCR) Coronavirus NL63 (PCR) Human Metapneumovir PCR Influenza A (RT-PCR) Influenza B (RT-PCR) M. pneumoniae (PCR) Parainfluenza 1 (PCR) Parainfluenza 2 (PCR) Parainfluenza 3 (PCR) Parainfluenza 4 (PCR) RSV (PCR) Entero/Rhino (PCR) SARS-CoV-2 RNA (RT-PCR) Microbiology Microbiology Results: Microbiology 04/13/22 13:08 Blood Culture - Preliminary Blood - Venous No growth after 24 hours. 04/13/22 12:57 Blood Culture - Preliminary Blood - Venous No growth after 24 hours. Assessment and Plan (1) COPD exacerbation: Status: Acute Plan d#3 61yo M with HFrEF, sev aortic stenosis needing replacement, HTN, COPD, colorectal CA s/p colectomy/colostomy, HTN admitted with hypoxia suspected due to COPD vs. CHF with large R-sided pleural effusion # pleural effusion - thoracentesis today and send fluid for culture, chemistries, and cytology # acute-chronic HFrEF # sev aortic stenosis # NSVT - Cardiology consulted; suspect less CHF at this point and more COPD- switched back to oral maintenance diuretics - update TTE today - continue Entresto, spironolactone, carvedilol - monitor K/Mg # COPD exacerbation - continue steroids, standing/prn nebs - continue ICS/LABA inhaler # acute hypoxic resp failure - wean O2 as tolerated # enterovirus/rhinovirus - droplet precautions # hypothyroidism - continue LT4 # VTE ppx: LMWH held for thoracentesis In my clinical judgment, the patient requires continued inpatient hospitaliza tion for the following reasons: thoracentesis Quality Stroke Does the patient have a stroke diagnosis?: No VTE Prior VTE?: No VTE Risk Level:: Medical - moderate - high VTE Device Contraindication: Treatment Not Indicated VTE Drug Contraindication: N/A - Med Ordered
--- NOTE | 2022-04-15 13:23 | MHC.CM.PN ---
Per MD rounds, A thorocentesis is planned today. Patient will also need an Echo and further diuresis prior to discharge. DP home w or wo services. Patients spouse will transport home at discharge.
--- NOTE | 2022-04-15 14:26 | P.PNCA_ITS ---
Subjective Subjective Date of Service: 04/15/22 <SHELLY Ba - Last Filed: 04/15/22 15:51> 04/15/22 <John Stout MD - Last Filed: 04/15/22 16:50> Principal diagnosis: Viral illness, Aortic stenosis, large right pleural effusion, COPD <SHELLY Ba - Last Filed: 04/15/22 15:51> Interval history: Seen at 1015. Today he reports that breathing is comfortable at rest. He does have wheezing and intermittent cough. No chest pains, palpitations, dizziness. No edema. Has been laying with HOB elevated. at bedside. Pt NPO for planned thoracentesis. Getting frustrated as time of procedure is unknown. Echo completed. Tele shows SB/ SR rate 50-60s. <SHELLY Ba - Last Filed: 04/15/22 15:51> Review of Systems Review of Systems as above <SHELLY Ba - Last Filed: 04/15/22 15:51> Yes all other systems are reviewed and are negative <SHELLY Ba - Last Filed: 04/15/22 15:51> Physical Exam Vital Signs: Last Vital Signs Temp 98.0 F 04/15/22 11:20 Pulse 61 04/15/22 11:20 Resp 17 04/15/22 11:20 BP 127/77 04/15/22 11:20 Pulse Ox 95 04/15/22 11:20 O2 Del Method 04/15/22 11:20 O2 Flow Rate 2 04/15/22 03:49 BMI result Body Mass Index 27.9 <SHELLY Ba - Last Filed: 04/15/22 15:51> Const General: cooperative, healthy appearing, comfortable and no acute distress <SHELLY Ba - Last Filed: 04/15/22 15:51> Orientation/consciousness: patient oriented x3 <SHELLY Ba - Last Filed: 04/15/22 15:51> Neck Neck: Yes normal visual inspection and Yes no JVD <SHELLY Ba - Last Filed: 04/15/22 15:51> Chest Chest palpation & inspection: normal inspection of the chest <Mera Quintana NPC - Last Filed: 04/15/22 15:51> Resp Other: bilateral expiratory wheezes noted. Dim in right lower lobe. <Mera Quintana NP - Last Filed: 04/15/22 15:51> Effort & Inspection: normal respiratory effort <Mera Quintana NP - Last Filed: 04/15/22 15:51> Auscultation: no crackles, no rales and no rhonchi <Mera Quintana [facility] - Last Filed: 04/15/22 15:51> Cardio Rate: regular rate <Mera Quintana [facility] - Last Filed: 04/15/22 15:51> Rhythm: regular rhythm <Mera Quintana [facility] - Last Filed: 04/15/22 15:51> Heart sounds: S2 normal heart sound present, no gallops, Murmur heart sound present (systolic murmur noted) and no rubs <Mera Quintana [facility] - Last Filed: 04/15/22 15:51> GI Other: colostomy <Mera Quintana [facility] - Last Filed: 04/15/22 15:51> Inspection: Yes normal to inspection <Mera Quintana NP - Last Filed: 04/15/22 15:51> Neuro General: patient oriented x3 <Mera Quintana [facility] - Last Filed: 04/15/22 15:51> Extrem General: Yes normal to inspection, No no pedal edema and No calf tenderness <Mera Quintana [facility] - Last Filed: 04/15/22 15:51> Psych Appearance: grossly normal <Mera Quintana [facility] - Last Filed: 04/15/22 15:51> Mental Status: mental status grossly normal <Mera Quintana [facility] - Last Filed: 04/15/22 15:51> Speech and movement: Normal speech and movement present <Mera Quintana [facility] - Last Filed: 04/15/22 15:51> Objective Labs and Meds Result diagrams: : 04/13/22 11:51 04/15/22 06:02 <SHELLY Ba - Last Filed: 04/15/22 15:51> Lab results: Laboratory Results - last 24 hr 04/15/22 04/15/22 04/15/22 06:02 06:02 09:08 PT 12.9 INR 1.1 APTT 29.2 Sodium 139 Potassium 4.5 Chloride 98 Carbon Dioxide 32 H Anion Gap 14 BUN 27 H Creatinine 1.14 Estim Creat Clear Calc 76.5 Estimated GFR > 60 Random Glucose 91 Calcium 8.8 Magnesium 2.4 Lactate Dehydrogenase 190 B-Natriuretic Peptide 813 H <SHELLY Ba - Last Filed: 04/15/22 15:51> Progress Note: A&P Assessment and plan (1) Acute exacerbation of CHF (congestive heart failure): Status: Acute <SHELLY Ba - Last Filed: 04/15/22 15:51> Assessment and Plan: Admit with sob. Being treated for viral illness, COPD exacerbation and acute CHF. BNP elevated at 2517. CXR with right base effusion. CTA of chest showed no PE, large right pleural effusion. He did recieve dose of IV Lasix then was continued on his usual Torsemide 40mg bid. He does not appear fluid overloaded on examination. He does have a reported hx of aortic stenosis, likely severe. Echo was completed this am, report pending. Will obtain records from his primary [facility] storage architect for review. He is scheduled to have a right sided thoracentesis today. Will continue on his usual HF meds including Carvedilol, En tresto, aldactone, and the Torsemide. Obtain BNP in am. Once echo and prior records reviewed, further treatment plan to be determined. We will follow. <SHELLY Ba - Last Filed: 04/15/22 15:51> Admit with sob. Being treated for viral illness, COPD exacerbation and acute CHF. BNP elevated at 2517. CXR with right base effusion. CTA of chest showed no PE, large right pleural effusion. He did recieve dose of IV Lasix then was continued on his usual Torsemide 40mg bid. He does not appear fluid overloaded on examination. He does have a reported hx of aortic stenosis, likely severe. Echo was completed this am, report pending. Will obtain records from his primary [employer] storage architect for review. He is scheduled to have a right sided thoracentesis today. Will continue on his usual HF meds including Carvedilol, Entresto, aldactone, and the Torsemide. Obtain BNP in am. Once echo and prior records reviewed, further treatment plan to be determined. We will follow. Patient seen and examined. Case discussed with Mera Quintana. Patient diuresed with IV Lasix. She follow-up BMP and BNP. Replace electrolytes. To undergo thoracocentesis for the large right pleural effusion which is I thing at current time the right approach. Does not require much IV diuresis at this point time. Continue torsemide p.o. as prescribed. Continue neurohormonal modulation with carvedilol and Entresto as well as Aldactone. Should be on also Jardiance 10 mg for heart failure. He does have moderately severe aortic stenosis which could complicate his heart failure management. Should consider to be remained echocardiogram as outpatient to evaluate for candidacy for aortic valve replacement. Could be a candidate for transcatheter aortic valve replacement. Will follow-up with his cardiology group in the near future. Continue management of his COPD as well as viral illness. Will follow with you <John Stout MD - Last Filed: 04/15/22 16:50> (2) COPD exacerbation: Status: Acute <SHELLY Ba - Last Filed: 04/15/22 15:51> Assessment and Plan: Being managed by hospitalist <SHELLY Ba - Last Filed: 04/15/22 15:51> (3) Pleural effusion: Status: Acute <SHELLY Ba - Last Filed: 04/15/22 15:51> Assessment and Plan: Thoracentesis. <SHELLY Ba - Last Filed: 04/15/22 15:51> (4) Aortic stenosis: Status: Acute <SHELLY Ba - Last Filed: 04/15/22 15:51> Assessment and Plan: as above. <SHELLY Ba - Last Filed: 04/15/22 15:51> Time Spent With Patient Time: Total time spent is greater than 50% in coordination of care (as documented) at patient's floor/unit and/or counseling patient: 26 <SHELLY Ba - Last Filed: 04/15/22 15:51> Progress Note: Quality Stroke Does the patient have a stroke diagnosis?: No <SHELLY Ba - Last Filed: 04/15/22 15:51> Procedures Date of Service Date of Service: 04/15/22 <SHELLY Ba - Last Filed: 04/15/22 15:51>
--- NOTE | 2022-04-15 16:24 | HO.RADPN ---
RADIOLOGY Narrative Narrative: Right thoracentesis using 4 fr one stick catheter. 1.2 L clear vanessa colored fluid removed. Specimen sent as requested by ordering MD. CXR pending.
[2022-04-15] MEDS: Lidocaine HCl 1 % MPF 5 ML VIAL 10 ML SUBCUT (16:38)
[2022-04-15 17:21] LABS: MN% 87.5 %; PMN% 12.5 %; WBC Pleural Fluid 0.081 X10*3/uL
[2022-04-15 17:42] LABS: RBC Pleural Fluid < 0.002 X10*3/uL
[2022-04-15 19:20] LABS: BF Shift QC OK YES
[2022-04-15 19:23] LABS: Lymphocytes Pleural Fluid 23 %; Monocytes Pleural Fluid 43 %; Neutrophils Pleural Fluid 2 %; Other Cells Plerual Fl 32 %
[2022-04-15] MEDS: Pravastatin Sodium 10 MG TABLET PO (20:12)
[2022-04-15 22:04] LABS: LDH Pleural Fluid 96 U/L
[2022-04-16] VITALS: BP 112/72; PULSE 68; RESP 18; TEMP 37.2; O2SAT 96
[2022-04-16] MEDS: 0.9 % Sodium Chloride Flush 3 ML SYRINGE IVFLUSH ×2 (00:43→10:46)
[2022-04-16 04:46] VITALS: BP 104/64; PULSE 52; RESP 16; TEMP 36.4; O2SAT 94
[2022-04-16] MEDS: Levothyroxine Sodium 175 MCG TABLET PO (05:57)
[2022-04-16 06:00] VITALS: BMI 26.9
[2022-04-16 07:01] LABS: Hematocrit 37.9 % (42.0-52.0); Hemoglobin 12.4 g/dl (14.0-18.0); Mean Corpuscular HGB Conc 32.7 g/dl (31.0-36.0); Mean Corpuscular Hemoglobin 30.7 pg (27.0-33.0); Mean Corpuscular Volume 93.8 fL (80.0-98.0); Mean Platelet Volume 10.7 fL (9.4-12.4); Platelet Count 205 X10*3/uL (160-400); Red Blood Count 4.04 X10*6/uL (4.60-5.80); Red Cell Distribution Width 13.1 % (11.0-16.0)
[2022-04-16 07:21] LABS: Anion Gap 18 (12-20); Blood Urea Nitrogen 34 mg/dL (9-16); Calcium 8.9 mg/dL (8.4-10.2); Carbon Dioxide 30 mmol/L (22-29); Chloride 98 mmol/L (96-108); Creatinine Clr Calc Pharmacy 58.7; Estimated Glomerular Filt Rate 52; Glucose Random 82 mg/dL (60-115); Magnesium 2.4 mg/dL (1.6-2.6); Sodium 142 mmol/L (135-145)
[2022-04-16 07:25] LABS: B Type Natriuretic Peptide 327 pg/mL (<100)
[2022-04-16 07:37] LABS: Procalcitonin 0.03 ng/mL
[2022-04-16 07:58] VITALS: BP 104/66; PULSE 60; RESP 20; TEMP 36.6; O2SAT 96
[2022-04-16] MEDS: Albuterol/Iprat 2.5/0.5MG 3 ML AMPUL.NEB INHALE ×2 (08:10→11:49)
[2022-04-16] MEDS: Fluticasone/Vilanterol 100/25 BLST.W.DEV 1 PUFF INHALE (08:11)
[2022-04-16 08:19] VITALS: PULSE 78; RESP 20; O2SAT 95
[2022-04-16 09:46] LABS: Total Protein 7.1 g/dL (6.5-8.0)
[2022-04-16] MEDS: Spironolactone 25 MG TABLET 12.5 MG PO (10:45)
[2022-04-16] MEDS: amLODIPine Besylate 2.5 MG TABLET PO (10:46)
[2022-04-16] MEDS: Loratadine 10 MG TABLET PO (10:46)
[2022-04-16] MEDS: Torsemide 20 MG TABLET 40 MG PO (10:46)
[2022-04-16] MEDS: Sacubitril/Valsartan 24/26 1 TAB TABLET PO (10:46)
[2022-04-16] MEDS: predniSONE 20 MG TABLET 40 MG PO (10:47)
[2022-04-16] MEDS: carvediloL 3.125 MG TABLET PO (10:47)
[2022-04-16] MEDS: DULoxetine HCl 60 MG CAPSULE.DR PO (10:47)
[2022-04-16] MEDS: Fluticasone Propionate Nasal 16 GM SPRAY 1 SPRAY NOSTRIL-B (10:48)
--- NOTE | 2022-04-16 11:29 | MHC.CM.PN ---
IMM 04/16/22 Male 61 DX N/V wheezing s/p Thorocentesis 04/15/22. He is discharged to home today. MD ordered [facility] services. Patient and his refuse home care services. MD has been notified. DP home self care. Patient's will provide transportation home.
[2022-04-16 11:42] VITALS: BP 102/60; PULSE 67; RESP 20; TEMP 36.6; O2SAT 97
[2022-04-16 11:46] VITALS: PULSE 78; RESP 18; O2SAT 96
--- NOTE | 2022-04-16 12:20 | P.PNCA_ITS ---
Subjective Subjective Date of Service: 04/16/22 <SHELLY Ba - Last Filed: 04/16/22 12:30> 04/16/22 <John Stout MD - Last Filed: 04/16/22 13:29> Principal diagnosis: Viral illness, Aortic stenosis, large right pleural effusion, COPD <SHELLY Ba - Last Filed: 04/16/22 12:30> Interval history: Seen at 10:30. Patient reports he is feeling better. His breathing is more comfortable. He is ambulating around the room without symptoms. No chest pains, palpitations, dizziness. Slept well. No PND, orthopnea or edema. Asking if he can be discharged. 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 <SHELLY Ba - Last Filed: 04/16/22 12:30> Review of Systems Review of Systems As above <SHELLY Ba - Last Filed: 04/16/22 12:30> Yes all other systems are reviewed and are negative <SHELLY Ba - Last Filed: 04/16/22 12:30> Physical Exam Vital Signs: Last Vital Signs Temp 97.9 F 04/16/22 11:42 Pulse 78 04/16/22 11:46 Resp 18 04/16/22 11:46 BP 102/60 04/16/22 11:42 Pulse Ox 97 04/16/22 11:42 O2 Del Method 04/16/22 11:42 O2 Flow Rate 2 04/15/22 03:49 BMI result Body Mass Index 26.9 <SHELLY Ba - Last Filed: 04/16/22 12:30> Const General: cooperative, healthy appearing, comfortable and no acute distress <SHELLY Ba - Last Filed: 04/16/22 12:30> Orientation/consciousness: patient oriented x3 <SHELLY Ba Last Filed: 04/16/22 12:30> Neck Neck: Yes normal visual inspection and Yes no JVD <SHELLY Ba - Last Filed: 04/16/22 12:30> Chest Chest palpation & inspection: normal inspection of the chest <DANYA BaC - Last Filed: 04/16/22 12:30> Resp Other: Scattered wheezes noted, less than yesterday, increased aeration on right side <Mera Quintana NP-C - Last Filed: 04/16/22 12:30> Effort & Inspection: normal respiratory effort <Mera Quintana NP-C - Last Filed: 04/16/22 12:30> Auscultation: no crackles, no rales and no rhonchi <Mera Quintana NP-C - Last Filed: 04/16/22 12:30> Cardio Rate: regular rate <Mera Lilian CLIENT RELATIONSHIP CONSULTANT-C - Last Filed: 04/16/22 12:30> Rhythm: regular rhythm <Mera Quintana NP-C - Last Filed: 04/16/22 12:30> Heart sounds: S2 normal heart sound present, no gallops, Murmur heart sound present (systolic murmur noted) and no rubs <Mera QuintanaMAYDA-C - Last Filed: 04/16/22 12:30> GI Other: colostomy <Mera MAYDA Quintana-C - Last Filed: 04/16/22 12:30> Inspection: Yes normal to inspection <Mera QuintanaMAYDA-C - Last Filed: 04/16/22 12:30> Neuro General: patient oriented x3 <Mera Quintana CLIENT RELATIONSHIP CONSULTANT-C - Last Filed: 04/16/22 12:30> Extrem General: Yes normal to inspection, No no pedal edema and No calf tenderness <Mera Quintana CLIENT RELATIONSHIP CONSULTANT-C - Last Filed: 04/16/22 12:30> Psych Appearance: grossly normal <Mera Quintana CLIENT RELATIONSHIP CONSULTANT-C - Last Filed: 04/16/22 12:30> Mental Status: mental status grossly normal <Mera Quintana CLIENT RELATIONSHIP CONSULTANT-C - Last Filed: 04/16/22 12:30> Speech and movement: Normal speech and movement present <Mera Quintana CLIENT RELATIONSHIP CONSULTANT-C - Last Filed: 04/16/22 12:30> Objective Labs and Meds Result diagrams: : 04/16/22 06:05 04/16/22 06:05 <SHELLY Ba - Last Filed: 04/16/22 12:30> Lab results: Laboratory Results - last 24 hr 04/15/22 04/15/22 04/16/22 16:12 16:12 06:05 WBC 8.0 RBC 4.04 L Hgb 12.4 L Hct 37.9 L MCV 93.8 MCH 30.7 MCHC 32.7 RDW 13.1 Plt Count 205 MPV 10.7 Absolute Nucleated RBC 0.000 Nucleated RBC % (auto) 0.0 Sodium Potassium Chloride Carbon Dioxide Anion Gap BUN Creatinine Estim Creat Clear Calc Estimated GFR Random Glucose Calcium Magnesium B-Natriuretic Peptide Total Protein Procalcitonin Pleural WBC 0.081 Pleural RBC < 0.002 Pleural Neutrophils 2 Pleural Lymphocytes 23 Pleural Monocytes 43 Pleural Other Cells 32 Pleural Total Protein 4.0 Pleural LDH 96 04/16/22 04/16/22 04/16/22 06:05 06:05 06:05 WBC RBC Hgb Hct MCV MCH MCHC RDW Plt Count MPV Absolute Nucleated RBC Nucleated RBC % (auto) Sodium 142 Potassium 4.0 Chloride 98 Carbon Dioxide 30 H Anion Gap 18 BUN 34 H D Creatinine 1.37 Estim Creat Clear Calc 58.7 Estimated GFR 52 Random Glucose 82 Calcium 8.9 Magnesium 2.4 B-Natriuretic Peptide 327 H Total Protein 7.1 Procalcitonin 0.03 Pleural WBC Pleural RBC Pleural Neutrophils Pleural Lymphocytes Pleural Monocytes Pleural Other Cells Pleural Total Protein Pleural LDH <SHELLY Ba - Last Filed: 04/16/22 12:30> Imaging Radiologist's impression: Impressions Thoracentesis Ultrasound 04/15/22 16:40 IMPRESSION: Ultrasound-guided right thoracentesis. Chest X-Ray 04/15/22 16:50 IMPRESSION: No pneumothorax post right thoracentesis. Small remaining right pleural effusion. <SHELLY Ba - Last Filed: 04/16/22 12:30> Progress Note: A&P Assessment and plan (1) Acute exacerbation of CHF (congestive heart failure): Status: Acute <SHELLY Ba - Last Filed: 04/16/22 12:30> Assessment and Plan: Admit with sob. Being treated for viral illness, COPD exacerbation and acute CHF. BNP elevated at 2517. CXR with right base effusion. CTA of chest showed no PE, large right pleural effusion. He did recieve dose of IV Lasix then was continued on his usual Torsemide 40mg bid. He has not appeared fluid overloaded on examination. Echocardiogram completed yesterday shows EF 30-35%, grade 3 diastolic dysfunction, moderate left atrial dilation, moderate to severe , mild increase in the RV SP. He has a known history of aortic stenosis and nonischemic cardiomyopathy. He underwent a right sided thoracentesis yesterday with removal of 1.2 L of yellow fluid which has been sent for testing. Today he reports breathing is much improved. Lung sounds are overall better with only scattered expiratory wheezes and increased air flow on the right. BNP 327 this a.m.. Oxygen saturation 96% on room air. His blood pressure is on the low side this a.m, 104/66. Will stop amlodipine. Continue his usual HF meds including Carvedilol, Entresto, aldactone, and Torsemide. Patient can be discharged from a cardiology perspective. He follows with [facility] and will need to have a cardiology follow-up by them in the near future. Outpatient dobutamine stress echocardiogram should be considered to evaluate his candidacy for aortic valve replacement/ TAVR. <SHELLY Ba - Last Filed: 04/16/22 12:30> Admit with sob. Being treated for viral illness, COPD exacerbation and acute CHF. BNP elevated at 2517. CXR with right base effusion. CTA of chest showed no PE, large right pleural effusion. He did recieve dose of IV Lasix then was continued on his usual Torsemide 40mg bid. He has not appeared fluid overloaded on examination. Echocardiogram completed yesterday shows EF 30-35%, grade 3 diastolic dysfunction, moderate left atrial dilation, moderate to severe , mild increase in the RV SP. He has a known history of aortic stenosis and nonischemic cardiomyopathy. He underwent a right sided thoracentesis yesterday with removal of 1.2 L of yellow fluid which has been sent for testing. Today he reports breathing is much improved. Lung sounds are overall better with only scattered expiratory wheezes and increased air flow on the right. BNP 327 this a.m.. Oxygen saturation 96% on room air. His blood pressure is on the low side this a.m, 104/66. Will stop amlodipine. Continue his usual HF meds including Carvedilol, Entresto, aldactone, and Torsemide. Patient can be discharged from a cardiology perspective. He [facility] and will need to have a cardiology follow-up by them in the near future. Outpatient dobutamine stress echocardiogram should be considered to evaluate his candidacy for aortic valve replacement/ TAVR. Patient seen and examined. Feels a lot better since thoracocentesis. Case was discussed with Mera Quintana. BNP is improved significantly with diuresis and treatment. Switch to p.o. torsemide yesterday tolerating well. Noted low blood pressure, discontinue amlodipine therapy. Continue other neurohormonal modulation with Coreg, Entresto as well as Aldactone. Should consider outpatient evaluation for transcatheter aortic valve replacement with a dobutamine stress echocardiogram to assess for true versus pseudo aortic stenosis and as well as evaluating LV contractile reserve. He was made aware of this finding. He understands and agrees. Patient can be discharged home today. Thank you for allowing us to partake in his care <John Stout MD - Last Filed: 04/16/22 13:29> (2) COPD exacerbation: Status: Acute <SHELLY Ba - Last Filed: 04/16/22 12:30> Assessment and Plan: Being managed by hospitalist. Improving <SHELLY Ba - Last Filed: 04/16/22 12:30> (3) Pleural effusion: Status: Acute <SHELLY Ba - Last Filed: 04/16/22 12:30> Assessment and Plan: Thoracentesis done yesterday. Chest x-ray post procedure showed no pneumothorax, small residual right effusion. <SHELLY Ba - Last Filed: 04/16/22 12:30> (4) Aortic stenosis: Status: Acute <SHELLY Ba - Last Filed: 04/16/22 12:30> Assessment and Plan: as above. Moderate to severe on echo that was just completed <SHELLY Ba - Last Filed: 04/16/22 12:30> Time Spent With Patient Time: Total time spent is greater than 50% in coordination of care (as documented) at patient's floor/unit and/or counseling patient: 24 <SHELLY Ba - Last Filed: 04/16/22 12:30> Progress Note: Quality Stroke Does the patient have a stroke diagnosis?: No <SHELLY Ba - Last Filed: 04/16/22 12:30> Procedures Date of Service Date of Service: 04/16/22 <SHELLY Ba - Last Filed: 04/16/22 12:30>
--- NOTE | 2022-04-16 13:35 | PM.DS ---
DS: Providers Provider Date of Service: 04/16/22 Date of admission: 04/13/22 18:15 Date of discharge: 04/16/22 Primary care physician: Stephen Mota MD Consults: 04/13/22 18:15 Consult to Cardiology Routine Consulting Provider: Andrew Stewart Reason for consultation: CHF exacerbation, loculated effusion DS: Diagnosis Discharge Diagnosis (1) Acute exacerbation of CHF (congestive heart failure): Status: Acute (2) COPD exacerbation: Status: Acute (3) Pleural effusion: Status: Acute (4) Aortic stenosis: Status: Acute (5) Acute on chronic HFrEF (heart failure with reduced ejection fraction): Status: Acute (6) Rhinovirus infection: Status: Acute (7) Acute respiratory failure with hypoxia: Status: Acute DS: Summary Hospital Course Hospital Course: from admission H+P by hospitalist HEBER Hunt, 04/13/22: 61-year-old male with history of HFrEF, severe aortic stenosis needing replacement, hypertension, COPD, history colorectal cancer s/p colectomy with colostomy in place, history skin cancer, hypertensive, retinopathy with history of vitreous hemorrhage presented to the ED this morning with his , Lluvia who is present at bedside during exam, for evaluation of generalized fatigue, malaise, myalgia, nausea, cough, postnasal drip, vomiting, wheezing, and shortness of breath ongoing for 3 days.? On arrival, patient noted to be tachycardic with HR of 116, improved 87, vitals otherwise normal.? ED nurse noted desaturation to 87-89% on room air and patient was started on 2 L supplemental O2 with improvement of oximetry to 96%.? No leukocytosis, mild normocytic anemia with H/H 12.1/37.9%.? Denies any recent epistaxis, melena, hematochezia.? Creatinine 1.09, BUN 12.? Patient did have episode of nonsustained ventricular tachycardia lasting several seconds without recurrence.? EKG showed normal sinus rhythm with PVCs and nonspecific ST/T-wave abnormality.? Electrolyte levels normal. Trop-I 35.1, 40.2 on 1 hour repeat, and 41.5 on 3 hour repeat. Lactic acid 0.7.? BNP 2517.? Negative for COVID-19, influenza.? CXR showed right base.? Subsequent CT of the chest showed large right-sided pleural effusion, early dilatation of the thoracic aorta, and was negative for pulmonary embolism.? Abdominal/pelvis CT negative for acute abnormality.? In the ED, patient given albuterol nebulizer, 20 mg furosemide.? Patient to be admitted for acute CHF exacerbation with loculated pleural effusion. He follows with Cardiology at [facility] and was scheduled for echocardiogram today but rescheduled this due to the way he was feeling. This 61yo M with HFrEF, severe aortic stenosis close to needing replacement, HTN, COPD, colorectal CA s/p colectomy/colostomy, and HTN was admitted to the [facility] with hypoxia suspected due to COPD vs. CHF with large R-sided pleural effusion. Hospital course by problem: # pleural effusion - Thoracentesis done 04/15/22 with removal of 1.2L of fluid. Barely exudative by Light's protein criteria; no organisms on Gram stain. Suspected due to CHF but given malignancy history, sent for cytology, which is pending at the time of discharge and should be followed up by his primary care doctor. Final culture also pending However, not thought to have bacterial infection. Repeat CXR in 1 week was ordered. # acute-chronic HFrEF # mod-sev aortic stenosis # NSVT -? Cardiology consulted. Was given IV diuresis briefly then transitioned back to maintenance oral diuretics. Echocardiogram as below; essentially unchanged from prior at [facility]. Neurohormonal modulation with Entresto, carvedilol, and spironolactone conitnued; empagliflozin added for further management. Outpatient stress dobutamine echocardiogram should be considered to evaluate for candidacy for TAVR. # COPD exacerbation - Prednisone burst given; completed 3 of 5 days. Likely viral trigger as below. # acute hypoxic resp failure - Weaned off oxygen after thoracentesis. # enterovirus/rhinovirus - Diagnosed on PCR panel. Placed on droplet precautions. Procalcitonin low x2; no evidence of bacterial infection. He was discharged home and declined VNA services. Time Spent with Patient Time attestation: Total time spent providing and/or coordinating discharge services: 40 Discharge coordination time: Greater than 30 minutes Quality: Safe Use of Opioids Does Pt have an Active Cancer Diagnosis on the Problem List?: Yes Opioid Measure Date for CMS Report: 03/17/22 Opioid Measure Time for CMS Report: 13:47 Quality: Stroke Does the patient have a stroke diagnosis?: No Physical Exam Vital Signs: Vital Signs: Last Vital Signs Temp 97.9 F 04/16/22 11:42 Pulse 78 04/16/22 11:46 Resp 18 04/16/22 11:46 BP 102/60 04/16/22 11:42 Pulse Ox 97 04/16/22 11:42 O2 Del Method 04/16/22 11:42 O2 Flow Rate 2 04/15/22 03:49 BMI result Body Mass Index 26.9 Gen: in no acute distress HEENT: sclera anicteric, moist mucus membranes Neck: supple Lungs: diminished R base Heart: regular rate and rhythm, systolic <> murmur at base Abd: soft, non-tender, non-distended Ext: no edema Skin: warm/well-perfused Neuro: alert and oriented x3, no focal findings Psych: appropriate affect DS: Data Data Completed and Pending Completed studies during hospitalization [Text1]: Laboratory Results WBC 8.0 X10*3/uL (4.8-10.8) 04/16/22 06:05 RBC 4.04 X10*6/uL (4.60-5.80) L 04/16/22 06:05 Hgb 12.4 g/dl (14.0-18.0) L 04/16/22 06:05 Hct 37.9 % (42.0-52.0) L 04/16/22 06:05 MCV 93.8 fL (80.0-98.0) 04/16/22 06:05 MCH 30.7 pg (27.0-33.0) 04/16/22 06:05 MCHC 32.7 g/dl (31.0-36.0) 04/16/22 06:05 RDW 13.1 % (11.0-16.0) 04/16/22 06:05 Plt Count 205 X10*3/uL (160-400) 04/16/22 06:05 MPV 10.7 fL (9.4-12.4) 04/16/22 06:05 Immature Gran % (Auto) 0.3 % (0.0-0.4) 04/13/22 11:51 Neut % (Auto) 84.3 % (45-73) H 04/13/22 11:51 Lymph % (Auto) 5.1 % (20-40) L 04/13/22 11:51 [place] % (Auto) 8.7 % (2-11) 04/13/22 11:51 Eos % (Auto) 0.9 % (0-4) 04/13/22 11:51 Baso % (Auto) 0.7 % (0-2) 04/13/22 11:51 Lymph # (Auto) 0.4 X10*3/uL (1.2-4.9) L 04/13/22 11:51 [place] # (Auto) 0.6 X10*3/uL (0.1-1.2) 04/13/22 11:51 Eos # (Auto) 0.1 X10*3/uL (0.0-0.4) 04/13/22 11:51 Baso # (Auto) 0.1 X10*3/uL (0.0-0.2) 04/13/22 11:51 Abs Immat Gran (auto) 0.02 X10*3/uL (0.00-0.03) 04/13/22 11:51 Absolute Neuts (auto) 5.8 x10*3/uL (2.0-8.3) 04/13/22 11:51 Absolute Nucleated RBC 0.000 X10*3/uL (0.0-0.012) 04/16/22 06:05 Nucleated RBC % (auto) 0.0 /100WBC (0.0-0.2) 04/16/22 06:05 PT 12.9 SEC (10.0-13.1) 04/15/22 09:08 INR 1.1 (0.9-1.1) 04/15/22 09:08 APTT 29.2 SEC (26.0-36.4) 04/15/22 09:08 Sodium 142 mmol/L (135-145) 04/16/22 06:05 Potassium 4.0 mmol/L (3.3-5.1) 04/16/22 06:05 Chloride 98 mmol/L (96-108) 04/16/22 06:05 Carbon Dioxide 30 mmol/L (22-29) H 04/16/22 06:05 Anion Gap 18 (12-20) 04/16/22 06:05 BUN 34 mg/dL (9-16) H D 04/16/22 06:05 Creatinine 1.37 mg/dL (0.5-1.4) 04/16/22 06:05 Estim Creat Clear Calc 58.7 04/16/22 06:05 Estimated GFR 52 04/16/22 06:05 Random Glucose 82 mg/dL (60-115) 04/16/22 06:05 Lactic Acid 0.7 mmol/L (0.5-2.0) 04/13/22 12:57 Calcium 8.9 mg/dL (8.4-10.2) 04/16/22 06:05 Magnesium 2.4 mg/dL (1.6-2.6) 04/16/22 06:05 Total Bilirubin 0.9 mg/dL (0.0-1.0) 04/13/22 11:51 Direct Bilirubin 0.3 mg/dL (0.0-0.5) 04/13/22 11:51 AST 18 U/L (5-37) 04/13/22 11:51 ALT 10 U/L (0-40) 04/13/22 11:51 Alkaline Phosphatase 72 U/L (39-117) 04/13/22 11:51 Lactate Dehydrogenase 190 U/L (118-273) 04/15/22 06:02 Troponin I High Sens 41.5 ng/L (<3.5-35.0) H 04/13/22 15:20 B-Natriuretic Peptide 327 pg/mL (<100) H 04/16/22 06:05 Total Protein 7.1 g/dL (6.5-8.0) 04/16/22 06:05 Albumin 4.5 g/dL (3.5-5.0) 04/13/22 11:51 Lipase 20 U/L (8-78) 04/13/22 11:51 Procalcitonin 0.03 ng/mL 04/16/22 06:05 Pleural WBC 0.081 X10*3/uL 04/15/22 16:12 Pleural RBC < 0.002 X10*3/uL 04/15/22 16:12 Pleural Neutrophils 2 % 04/15/22 16:12 Pleural Lymphocytes 23 % 04/15/22 16:12 Pleural Monocytes 43 % 04/15/22 16:12 Pleural Other Cells 32 % 04/15/22 16:12 Pleural Total Protein 4.0 GM/DL 04/15/22 16:12 Pleural LDH 96 U/L 04/15/22 16:12 Respiratory Panel [place] See Note 04/14/22 09:45 Adenovirus (Rapid PCR) Not Detected (Not Detect.) 04/14/22 09:45 B.pert (TEM-PCR) Not Detected (Not Detect.) 04/14/22 09:45 B.parapertussis DNA PCR Not Detected (Not Detect.) 04/14/22 09:45 C. pneumoniae DNA (PCR) Not Detected (Not Detect.) 04/14/22 09:45 Coronavirus OC43 (PCR) Not Detected (Not Detect.) 04/14/22 09:45 Coronavirus HKU1 (PCR) Not Detected (Not Detect.) 04/14/22 09:45 Coronavirus 229E (PCR) Not Detected (Not Detect.) 04/14/22 09:45 COVID-19 ([place]) Negative (Negative) 04/13/22 11:20 COVID-19 Clin Com See Note 04/13/22 11:20 Coronavirus NL63 (PCR) Not Detected (Not Detect.) 04/14/22 09:45 Human Metapneumovir PCR Not Detected (Not Detect.) 04/14/22 09:45 Influenza Type A (JEAN) Negative (Negative) 04/13/22 11:20 Influenza A (RT-PCR) Not Detected (Not Detect.) 04/14/22 09:45 Influenza Type B (JEAN) Negative (Negative) 04/13/22 11:20 Influenza B (RT-PCR) Not Detected (Not Detect.) 04/14/22 09:45 Influenza A & B Note See Note 04/13/22 11:20 M. pneumoniae (PCR) Not Detected (Not Detect.) 04/14/22 09:45 Parainfluenza 1 (PCR) Not Detected (Not Detect.) 04/14/22 09:45 Parainfluenza 2 (PCR) Not Detected (Not Detect.) 04/14/22 09:45 Parainfluenza 3 (PCR) Not Detected (Not Detect.) 04/14/22 09:45 Parainfluenza 4 (PCR) Not Detected (Not Detect.) 04/14/22 09:45 RSV (PCR) Not Detected (Not Detect.) 04/14/22 09:45 Entero/Rhino (PCR) Detected (Not Detect.) A 04/14/22 09:45 SARS-CoV-2 RNA (RT-PCR) Not Detected (Not Detect.) 04/14/22 09:45 Impressions Abdomen/Pelvis CT 04/13/22 14:59 IMPRESSION: Large right-sided pleural effusion. Colostomy Status post appendectomy and sigmoidectomy Fleischner guidelines were followed. Chest CTA 04/13/22 14:59 IMPRESSION: 1. No evidence of pulmonary embolism. 2. Large pleural effusion on the right. 3. Early aneurysmal dilatation of thoracic aorta VTE: negative Thoracentesis Ultrasound 04/15/22 16:40 IMPRESSION: Ultrasound-guided right thoracentesis. Chest X-Ray 04/15/22 16:50 IMPRESSION: No pneumothorax post right thoracentesis. Small remaining right pleural effusion. TTE 04/15/22 1. Moderately dilated left ventricle with moderate to severe LV systolic dysfunction with LVEF of 30-35% with grade 3 diastolic? dysfunction? 2. Moderately dilated left atrium? 3. Moderate to severe aortic stenosis valve area of 1.01 ? centimeters sq and mean gradient of 30 mmHg with dimensionless ? index of 0.26? 4. Mild mitral regurgitation ? 5. Mmildly elevated right ventricular systolic pressure? 6. No gross pericardial effusion ? ?? Pending studies at discharge: Pending at discharge 04/14/22 14:13 Cytology [PTH] Routine Discharge Plan Discharge Anticipated Discharge Date/Time: 04/16/22 13:19 Patient Disposition: Home, Self-Care Discharge Diagnosis: pleural effusion congestive heart failure moderate-severe aortic stenosis COPD exacerbation due to rhinovirus/enterovirus Referrals: Héctor Carl NP [Nurse Practitioner] - 1 Week Stephen Mota MD [Primary Care Provider] - 1 Week Discharge Medications: New prednisone 20 mg Tablet 40 mg PO DAILY Qty: 2 0RF empagliflozin 10 mg tablet 10 mg PO DAILY Qty: 30 0RF prednisone 20 mg Tablet 40 mg PO DAILY Qty: 4 0RF Continued levothyroxine 175 mcg Tablet 175 mcg PO DAILY@0630 fluticasone propion-salmeterol [Advair Diskus] 250-50 mcg/dose Blister With Device 1 inh INHALATION BID torsemide 20 mg tablet 2 tab PO BID@0900,1700 diphenoxylate-atropine 2.5-0.025 mg tablet 2 tab PO QID PRN (Reason: diarrhea) spironolactone 25 mg Tablet 12.5 mg PO DAILY Rx Instructions: pt cuts tablet in half carvedilol 3.125 mg Tablet 3.125 mg PO BID Rx Instructions: must administer with a meal/food pravastatin 10 mg Tablet 10 mg PO BEDTIME nitroglycerin 0.4 mg Tablet, Sublingual 0.4 mg SUBLINGUAL Q5M PRN (Reason: Chest Pain) Rx Instructions: do not exceed 3 doses per episode albuterol sulfate [ProAir HFA] 90 mcg/actuation Hfa Aerosol Inhaler 2 puff INHALATION Q4-6H PRN (Reason: Shortness Of Breath) oxybutynin chloride 5 mg tablet 1 tab PO BEDTIME fluticasone propionate 50 mcg/actuation [place],Suspension 1 spray INTRANASAL DAILY Rx Instructions: administer into each nostril loratadine [Claritin] 10 mg Tablet 10 mg PO DAILY duloxetine 60 mg Capsule,Delayed Release(Dr/Ec) 60 mg PO DAILY Entresto 24-26 mg Tablet 1 tab PO BID Discontinued amlodipine 5 mg Tablet 2.5 mg PO DAILY Discharge Orders: Discharge Order (Routine); Ordered 04/16/22 Ordered By: Candi Pichardo Diet: Low salt diet Activity on Discharge: As tolerated Stand Alone Forms: Patient Portal Discharge page Other Ambulatory Orders: XR chest 2V (Routine) Timeframe: 1 Week Facility: [facility] - Location: Radiology Ordered By: Candi Pichardo Care Plan Goals: cardiac health relief of pulmonary symptoms Health Concerns: pleural effusion congestive heart failure moderate-severe aortic stenosis COPD exacerbation due to rhinovirus/enterovirus Plan of Treatment: resume all medications EXCEPT amlodipine- stop due to borderline blood pressure start empagliflozin 10 mg daily follow up with your drop clipper within 1-2 weeks; discuss aortic valve replacement repeat chest X-ray in 1 week pending studies from pleural fluid: final culture and cytology take prednisone 40 mg daily for 2 days Please follow up with your primary care doctor within 1 week. Return to the hospital if you experience recurrent or worsening symptoms. Discuss final thoracentesis results with your primary care doctor Assessment: See Discharge Summary.
[2022-04-17 08:13] LABS: pH Pleural Fluid 7.49
== END 2022-04-16 16:20 | disposition home or self-care (01) | DRG 291 ==
LOC: HO.ED 19:47 → HO.IMC 20:19
PROVIDERS: Physician Assistant Medical; Radiology Diagnostic Radiology; Admitting Provider Physician Assistant; Emergency Provider Emergency Medicine; PCP Internal Medicine; Visit Provider Family Medicine
PROC: 0W993ZZ Drainage of Right Pleural Cavity, Percutaneous Approach (ICD-10-PCS; principal; 2022-04-15 15:00)
DX: I11.0 Hypertensive heart disease with heart failure (principal); I50.23 Acute on chronic systolic (congestive) heart failure; J96.01 Acute respiratory failure with hypoxia; I47.1 Supraventricular tachycardia; J91.8 Pleural effusion in other conditions classified elsewhere; E03.9 Hypothyroidism, unspecified; I27.20 Pulmonary hypertension, unspecified; I35.0 Nonrheumatic aortic (valve) stenosis; B97.10 Unspecified enterovirus as the cause of diseases classified elsewhere; Z85.828 Personal history of other malignant neoplasm of skin; Z85.038 Personal history of other malignant neoplasm of large intestine; Z93.3 Colostomy status; Z79.51 Long term (current) use of inhaled steroids; Z79.890 Hormone replacement therapy; Z79.899 Other long term (current) drug therapy
CPT/HCPCS: 32555; 36415; 71045; 71275; 74177; 80048; 80076; 83605; 83615; 83690; 83735; 83880; 83986; 84145; 84155; 84157; 84484; 85025; 85027; 85610; 85730; 87040; 87070; 87073; 87205; 87502; 87633; 87635; 88112; 89051; 93005; 93306; 94640; 96374; 96376; 99284; 99285; J1650; J1940; Q9967

== ENCOUNTER 2022-04-23 10:25 | Outpatient (REF) | payer MEDICARE, SELFPAY ==
--- NOTE | ~2022-04-23 | XR_ITS ---
EXAMINATION: XR CHEST CLINICAL INFORMATION: Pleural effusion COMPARISON: Previous chest x-ray 04/15/2022 TECHNIQUE: 2 views of the chest were obtained. FINDINGS: The cardiac and mediastinal contours are stable. There is a small right pleural effusion similar to April 15 exam. There is no left pleural effusion. There is no pneumothorax. There is scarring or chronic subsegmental atelectasis at the right lung base. The lungs are otherwise clear. There are degenerative changes of the spine. XR/XR chest 2V IMPRESSION: Small right pleural effusion similar to 04/15/2022 exam.
== END 2022-04-23 10:26 | disposition home or self-care (01) ==
LOC: HO.XRAY 10:25
PROVIDERS: PCP Internal Medicine; Visit Provider Family Medicine
DX: J90 Pleural effusion, not elsewhere classified (principal)
CPT/HCPCS: 71046